=== PATIENT | female | born 1950 | race Caucasian/White ===

== ENCOUNTER → 2016-08-28 | Outpatient (CLI) | payer MEDICARE, OTHER ==
--- NOTE | 2016-08-28 14:35 | BD ---
EXAMINATION TYPE: MG DEXA axial skeleton. DATE OF EXAM: 08/28/2016 1:02 PM COMPARISON: NONE CLINICAL HISTORY: Postmenopausal female Height: 5 FT 4 1/4 IN Weight: 217 FRAX RISK QUESTIONS: Alcohol (3 or more units per day): NO Family History (Parent hip fracture): NO Glucocorticoids (More than 3mos): NO (Ex: prednisone, prednisolone, methylprednisolone, dexamethasone, and hydrocortisone). History of Fracture in Adulthood: NO Secondary Osteoporosis: 1. Type 1 Diabetes: NO 2. Hyperthyroidism: NO 3. Menopause before 45: YES 4. Malnutrition: NO 5. 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 Bone mineral density as measured about the Lumbar spine is: ----- L1-L4(G/cm2): 1.616 T Score Values are as follows: ----- L2: 4.1 ----- L3: 3.0 ----- L4: 4.4 ----- L1-L4: 3.6 BASELINE Bone mineral density about the R hip (g/cm2): 1.116 Bone mineral density about the L hip (g/cm2): 1.293 T Score values are as follows: -----R Neck: 0.6 -----L Neck: 1.8 -----R Total: 0.9 -----L Total: 1.8 BASELINE IMPRESSION: Normal (Values between +1 and -1 indicate normal bone mass). Consider repeating this study in 5 year s or sooner if there is some new clinical indication. NOTE: T-SCORE=SD OF THE YOUNG ADULT MEAN.
== END | disposition home or self-care (01) ==
LOC: RADBDWWP 12:33
PROVIDERS: ATTEND Internal Medicine
DX: Z78.0 Asymptomatic menopausal state (principal)
CPT/HCPCS: 77080

== ENCOUNTER → 2016-10-16 | Outpatient (CLI) | payer MEDICARE, OTHER ==
--- NOTE | 2016-10-16 11:01 | P.HPOB ---
History of Present Illness H&P Date: 10/16/16 Chief Complaint: The patient is here for her routine gynecologic exam and mammogram. This is a 66-year-old within LMP of 1980 who is status post vaginal hysterectomy for uterine fibroids. She's here to establish with this office. She previously saw Dr. Hahn for her gynecologic care. It has been more than one year since her last exam. She is without gynecologic complaints. Review of Systems She is getting about 10 pounds over the last year. She denies respiratory or cardiac problems. G.I. she has occasional gastric reflux. She denies maltreatment. She has fallen off of her horse during the past year without significant injury. she denies any significant problems with urinary leakage. Past Medical History Additional Past Medical History / Comment(s): Hypertension, depression with bipolar disorder, elevated cholesterol, early emphysema, and gastroesophageal reflux disease. Additional Past Surgical History / Comment(s): Vaginal hysterectomy 1980, colonoscopy 2016 and right breast biopsy in the past. 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 She did have a history between 1980 and has no history of STDs. Medications and Allergies Home Medications and Allergies Comment(s): Lisinopril 20 mg daily, bhavani press 0.1 mg b.i.d., Paxil 20 mg b.i.d., pravastatin 40 mg Q day, fish oil supplement, baby aspirin daily, turmeric, vitamin D3 with calcium daily, shah tart pills daily. Exam Blood pressure 150/67, height 5'5", weight 220 pounds, temperature 97.3, pulse 85. This is a well-developed well-nourished white female who is alert and oriented times 3 in no acute distress. HEENT: Within normal limits. NECK: Supple without mass or thyromegaly. CHEST AND LUNGS: Clear to auscultation. HEART: Regular rate and rhythm. BREASTS: Are without mass or discharge. AXILLARY EXAM: Negative for adenopathy. BACK: Negative for CVA tenderness. ABDOMEN: Soft, nontender, without palpable masses. PELVIC EXAM: external genitalia reveals mild atrophy without lesions. Vagina appears normal with mild atrophy. Bimanual examination is negative for master tenderness. RECTAL EXAM: recto vaginal exam is negative for master tenderness and is negative for occult blood. EXTREMITIES: Nontender. Assessment and Plan Plan: IMPRESSION: 66-year-old menopausal female who is status post vaginal hysterectomy for benign reasons with normal gynecologic exam PLAN: 1. Pap smears have been discontinued. 2. Self breast examination was discussed. 3. Mammogram will be done today. 4. Osteoporosis prevention was discussed. She had a normal bone density tests done on 08/28/2016. 5. She did not get a flu shot last fall but plans to get one this coming fall. 6. She will return in one year.
--- NOTE | 2016-10-17 07:09 | MM ---
Reason for exam: screening (asymptomatic). Last mammogram was performed 1 year ago. History: Patient is postmenopausal. Family history of premenopausal breast cancer in 2 paternal aunts. Benign excisional biopsy of the right breast. Took hormonal contraceptives for 10 years beginning at age 19. Took estrogen for 14 years beginning at age 49. Physical Findings: A clinical breast exam by your physician is recommended on an annual basis and results should be correlated with mammographic findings. MG 3D Screening Mammo W/Cad Bilateral CC and MLO view(s) were taken. Prior study comparison: October 12, 2015, bilateral MG 3d screening mammo w/cad. October 10, 2014, bilateral MG screening mammo w CAD. The breast tissue is almost entirely fat. There is chronic nodularity in the left breast. No significant changes when compared with prior studies. ASSESSMENT: Benign, BI-RAD 2 RECOMMENDATION: Routine screening mammogram of both breasts in 1 year.
== END | disposition home or self-care (01) ==
LOC: WWCWWP 09:40
PROVIDERS: ATTEND Obstetrics & Gynecology
DX: Z12.31 Encounter for screening mammogram for malignant neoplasm of breast (principal)
CPT/HCPCS: 77063; G0202

== ENCOUNTER → 2017-08-22 | Outpatient (CLI) | payer MEDICARE, OTHER ==
[2017-08-22 15:12] LABS: Blood Urea Nitrogen 23 mg/dL (7-17)
--- NOTE | 2017-08-22 17:47 | CT ---
EXAMINATION TYPE: CT abdomen pelvis w con DATE OF EXAM: 08/22/2017 COMPARISON: NONE HISTORY: Left sided abdominal pain. CT DLP: 1023.6 mGycm Automated exposure control for dose reduction was used. TECHNIQUE: Helical acquisition of images was performed from the lung bases through the pelvis. CONTRAST: Performed with Oral Contrast and with IV Contrast, patient injected with 100 mL of Isovue M300. FINDINGS: The lung bases are clear. There is no pleural effusion. Heart size is normal. The liver spleen pancreas gallbladder appear normal. Bile ducts are not dilated. There is small hiata l hernia. There is no adrenal mass. Kidneys show satisfactory contrast opacification. There is no hyd ronephrosis. Ureters are not dilated. There is no retroperitoneal adenopathy. Bladder distends smooth ly. There is no sign of a pelvic mass. Hysterectomy is noted. There is no free fluid in the pelvis. I see no intestinal wall thickening. There are no dilated loops. Appendix is not definitely seen. The re is no sign of appendicitis. There is a 1st to 2nd degree L4-5 spondylolisthesis. There is no spond ylolysis. There is 1 cm subluxation. There is moderate narrowing at L4-5 L5-S1 disc spaces. There is no compression fracture. There is L4-5 spinal stenosis. IMPRESSION: MODERATE SPINAL STENOSIS AT L4-5 WITH A 1ST TO 2ND DEGREE SPONDYLOLISTHESIS. NO FRACTURE. NO SIGN OF ACUTE ABDOMEN AND PELVIS. I DO NOT SEE A CAUSE FOR LEFT-SIDED ABDOMINAL PAIN.
== END | disposition home or self-care (01) ==
LOC: RADCTMAIN 14:35
PROVIDERS: ATTEND Internal Medicine
DX: R10.84 Generalized abdominal pain (principal)
CPT/HCPCS: 82565; 84520; 74177; 36415; Q9967

== ENCOUNTER → 2017-11-05 | Outpatient (CLI) | payer MEDICARE, OTHER ==
[2017-11-05 10:07] VITALS: BP 136/69; PULSE 82; TEMP 98.1; BMI 36.4
--- NOTE | 2017-11-05 10:42 | P.HPOB ---
History of Present Illness H&P Date: 11/05/17 Chief Complaint: The patient is here for her routine gynecologic exam and mammogram. This is a 67-year-old with an LMP of 1980 who is status post vaginal hysterectomy for uterine fibroids. The patient is without gynecologic complaints. Review of Systems Weight has been stable. She denies respiratory, cardiac and G.I. problems. She denies maltreatment or problems with falling. : she denies any significant problems with urinary leakage, but can sometimes have a slight leak if she laughs very hard and cannot get to the bathroom right away. 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 History of Any Multi-Drug Resistant Organisms: None Reported Past Surgical History: Breast Surgery (Right biopsy), Hysterectomy (Vaginal in 1980) Additional Past Surgical History / Comment(s): colonoscopy 2016. Past Psychological History: Bipolar, Depression Smoking Status: Former smoker (Quit 1996) Past Alcohol Use History: Occasional (2 per month) Past Drug Use History: None Reported Additional History: She has been since 1966 and is retired. - Past Family History Father Family Medical History: Coronary Artery Disease (CAD), Diabetes Mellitus Mother Family Medical History: Myocardial Infarction ([place]) Additional Family Medical History / Comment(s): 2 aunts had breast cancer. Sister(s) Family Medical History: Coronary Artery Disease (CAD) Brother(s) Family Medical History: Coronary Artery Disease (CAD) Medications and Allergies Home Medications Medication Instructions Recorded Confirmed Type Aloe Vera mg PO DAILY 11/05/17 History Aspirin [Children's Aspirin] mg PO DAILY 11/05/17 History Cholecalciferol [Vitamin D3] tab PO DAILY 11/05/17 History Lisinopril [Zestril] mg PO DAILY 11/05/17 History [place]-3 Fatty Acids/Fish Oil [Fish cap PO DAILY 11/05/17 History Oil 1,000 mg Softgel] PARoxetine [Paxil] mg PO BID 11/05/17 History Pravastatin Sodium [Pravachol] mg PO HS 11/05/17 History cloNIDine HCL [Catapres] mg PO BID 11/05/17 History Allergies Allergy/AdvReac Type Severity Reaction Status Date / Time sulfamethoxazole AdvReac Severe Nausea & Unverified 11/05/17 10:20 [From Bactrim] Vomiting trimethoprim [From Bactrim] AdvReac Severe Nausea & Unverified 11/05/17 10:20 Vomiting Exam Vital Signs Temp Pulse BP 11/05/17 10:01 98.1 F 82 136/69 Intake and Output 11/04/17 11/05/17 11/05/17 22:59 06:59 14:59 Other: Weight 99.337 kg Height 5'5", BMI 36.4. This is a well-developed well-nourished heavyset white female who is alert and oriented times 3 in no acute distress. HEENT: Within normal limits. NECK: Supple without mass or thyromegaly. CHEST AND LUNGS: Clear to auscultation. HEART: Regular rate and rhythm. BREASTS: Are without mass or discharge. AXILLARY EXAM: Negative for adenopathy. BACK: Negative for CVA tenderness. ABDOMEN: Soft, obese, nontender, without palpable masses. PELVIC EXAM: External genitalia appears normal with mild atrophy. Vagina appears normal is mild atrophy. There is no evidence of prolapse. Bimanual examination is negative for mass or tenderness. RECTAL EXAM: Rectovaginal exam is negative for mass or tenderness and is negative for occult blood. EXTREMITIES: Nontender. IMPRESSION: 1. 67-year-old menopausal female who is status post vaginal hysterectomy for benign reasons with normal gynecologic exam. PLAN: 1. Pap smears have been discontinued. 2. Self breast awareness was discussed. 3. Screening mammogram will be done today. 4. She typically gets flu shots in the fall. 5. We will plan a repeating bone density test in 2023 since she had a normal bone density test on 08/28/2016. 6. She will return one year.
--- NOTE | 2017-11-06 11:19 | MM ---
Reason for exam: screening (asymptomatic). Last mammogram was performed 1 year and 1 month ago. History: Patient is postmenopausal. Family history of premenopausal breast cancer in 2 paternal aunts. Benign excisional biopsy of the right breast. Took hormonal contraceptives for 10 years beginning at age 19. Took estrogen for 14 years beginning at age 49. Physical Findings: A clinical breast exam by your physician is recommended on an annual basis and results should be correlated with mammographic findings. MG 3D Screening Mammo W/Cad Bilateral CC and MLO view(s) were taken. Prior study comparison: October 16, 2016, bilateral MG 3d screening mammo w/cad. October 12, 2015, bilateral MG 3d screening mammo w/cad. The breast tissue is heterogeneously dense. This may lower the sensitivity of mammography. Benign appearing bilateral calcifications. No suspicious abnormality. Post operative change in the right breast. ASSESSMENT: Benign, BI-RAD 2 RECOMMENDATION: Routine screening mammogram of both breasts in 1 year.
== END | disposition home or self-care (01) ==
LOC: WWCWWP 09:29
PROVIDERS: ATTEND Obstetrics & Gynecology
DX: Z12.31 Encounter for screening mammogram for malignant neoplasm of breast (principal)
CPT/HCPCS: 77063; 77067

== ENCOUNTER → 2018-09-22 | Outpatient (CLI) | payer MEDICARE, OTHER ==
--- NOTE | 2018-09-22 14:57 | XR ---
EXAMINATION TYPE: XR chest 2V DATE OF EXAM: 09/22/2018 COMPARISON: NONE HISTORY: Shortness of breath and cough. TECHNIQUE: Frontal and lateral views of the chest are obtained. FINDINGS: There is no focal air space opacity, pleural effusion, or pneumothorax seen. The cardiac silhouette size is upper limits of normal. Mild multilevel spurring in the midthoracic spine is prese nt. IMPRESSION: No acute cardiopulmonary process.
== END | disposition home or self-care (01) ==
LOC: RADXRMAIN 14:41
PROVIDERS: ATTEND Internal Medicine
DX: R05 Cough (principal)
CPT/HCPCS: 71046

== ENCOUNTER → 2019-01-26 | Outpatient (CLI) | payer MEDICARE, OTHER ==
[2019-01-26 15:42] VITALS: BP 96/58; PULSE 80; RESP 18; TEMP 98.2; BMI 35.6
--- NOTE | 2019-01-26 16:31 | P.HPOB ---
History of Present Illness H&P Date: 01/26/19 Chief Complaint: The patient is here for her routine gynecologic exam and ma mmogram. This is a 68-year-old with an LMP of 1980. The patient is status post vaginal hysterectomy for uterine fibroids. The patient states she has had some left vulvar irritation for more than one year. It seems to be intermittent and flares up at different times. She had used an [id number] hydrocortisone cream without much improvement. She is otherwise without complaints. Review of Systems The patient has lost 5 pounds over the last year. She denies respiratory, cardiac, or G.I. problems. Past Medical History Past Medical History: COPD, Diabetes Mellitus, GERD/Reflux, Hyperlipidemia, Hypertension Additional Past Medical History / Comment(s): Borderline type 2 diabetes. 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 History of Any Multi-Drug Resistant Organisms: None Reported Past Surgical History: Breast Surgery, Hysterectomy Additional Past Surgical History / Comment(s): Right breast biopsy. Vaginal hysterectomy 1980. colonoscopy 2016. Past Psychological History: Bipolar, Depression Smoking Status: Former smoker Past Alcohol Use History: Occasional (2 per month) Additional Past Alcohol Use History / Comment(s): Quit smoking in 1996. Past Drug Use History: None Reported Additional History: She has been since 1966 and is retired. She has 6 horses. - Past Family History Father Family Medical History: Coronary Artery Disease (CAD), Diabetes Mellitus Mother Family Medical History: Myocardial Infarction ([place]) Additional Family Medical History / Comment(s): 2 aunts had breast cancer. Sister(s) Family Medical History: Coronary Artery Disease (CAD) Brother(s) Family Medical History: Coronary Artery Disease (CAD) Medications and Allergies Home Medications Medication Instructions Recorded Confirmed Type Aloe Vera 1 tab PO DAILY 11/05/17 01/26/19 History Aspirin [Children's Aspirin] 81 mg PO DAILY 11/05/17 01/26/19 History Cholecalciferol [Vitamin D3] 1 tab PO DAILY 11/05/17 01/26/19 History Lisinopril [Zestril] 20 mg PO DAILY 11/05/17 01/26/19 History [place]-3 Fatty Acids/Fish Oil [Fish 1 cap PO DAILY 11/05/17 01/26/19 History Oil 1,000 mg Softgel] Pravastatin Sodium [Pravachol] 40 mg PO HS 11/05/17 01/26/19 History cloNIDine HCL [Catapres] 0.1 mg PO BID 11/05/17 01/26/19 History FLUoxetine HCL [PROzac] 20 mg PO BID 01/26/19 01/26/19 History Turmeric Root Extract [Turmeric] 500 mg PO DAILY 01/26/19 01/26/19 History metFORMIN HCL [Glucophage] 500 mg PO BID 01/26/19 01/26/19 History Allergies Allergy/AdvReac Type Severity Reaction Status Date / Time sulfamethoxazole AdvReac Severe Nausea & Unverified 01/26/19 15:42 [From Bactrim] Vomiting trimethoprim [From Bactrim] AdvReac Severe Nausea & Unverified 01/26/19 15:42 Vomiting Exam Vital Signs Temp Pulse Resp BP Pulse Ox 01/26/19 15:21 98.2 F 80 18 96/58 94 L Intake and Output 01/26/19 01/26/19 01/26/19 06:59 14:59 22:59 Other: Weight 97.069 kg Height 5 feet 5 inches, weight 214 pounds, BMI 35.6. This is a well-developed well-nourished heavyset white female who is alert and oriented times 3 in no acute distress. HEENT: Within normal limits. NECK: Supple without mass or thyromegaly. CHEST AND LUNGS: Clear to auscultation. HEART: Regular rate and rhythm. BREASTS: Are without mass or discharge. AXILLARY EXAM: Negative for adenopathy. BACK: Negative for CVA tenderness. ABDOMEN: Soft, nontender, without palpable masses. PELVIC EXAM: External genitalia reveals mild atrophy. The left labia majora has generalized erythema in a well demarcated area covering approximately three quarters of the labia majora. She states this is the area that has been irritated for more than one year. There is no ulceration or lesions within the erythematous area.the area is non-raised. Vagina appears normal with mild atrophy. There is no unusual discharge. There is no evidence of prolapse. Bimanual examination is negative for mass or tenderness. RECTAL EXAM: Rectovaginal exam is negative for mass or tenderness and is negative for occult blood. EXTREMITIES: Nontender. IMPRESSION: 1. 68-year-old menopausal female who is status post vaginal hysterectomy for benign reasons. 2. Left vulvar inflammation, nonspecific unilateral vulvitis. PLAN: 1. Pap smears have been discontinued. 2. Self breast awareness was discussed with the patient. 3. Screening mammogram will be done today. 4. Osteoporosis prevention was discussed. I have stressed the importance of adequate calcium, vitamin D and regular exercise. Recommended amounts of calcium and vitamin D were also discussed. She had a normal bone density test on 08/28/2016 .We will plan on repeating bone density testing in approximately 4 years. 5. Trial of Kenalog 0.1% cream twice a day to the left labia majora as needed. If she continues to have irritation on that side after 3 weeks, she was instructed to call for an appointment for reevaluation and possible biopsy. The electronic prescription will be sent to [facility] pharmacy. 6. She was advised to return in one year for her annual well woman exam.
--- NOTE | 2019-01-28 08:38 | MM ---
Reason for exam: screening (asymptomatic). Last mammogram was performed 1 year and 3 months ago. History: Patient is postmenopausal. Family history of premenopausal breast cancer in 2 paternal aunts. Benign excisional biopsy of the right breast. Took hormonal contraceptives for 10 years beginning at age 19. Took estrogen for 14 years beginning at age 49. Physical Findings: A clinical breast exam by your physician is recommended on an annual basis and results should be correlated with mammographic findings. MG 3D Screening Mammo W/Cad Bilateral CC, MLO, and XCCL view(s) were taken. Prior study comparison: November 05, 2017, bilateral MG 3d screening mammo w/cad. October 16, 2016, bilateral MG 3d screening mammo w/cad. There are scattered fibroglandular densities. No significant changes when compared with prior studies. ASSESSMENT: Benign, BI-RAD 2 RECOMMENDATION: Routine screening mammogram of both breasts in 1 year.
== END | disposition home or self-care (01) ==
LOC: WWCWWP 15:10
PROVIDERS: ATTEND Obstetrics & Gynecology
DX: Z12.31 Encounter for screening mammogram for malignant neoplasm of breast (principal)
CPT/HCPCS: 77063; 77067

== ENCOUNTER 2020-02-09 15:16 | Inpatient (IN) | payer MEDICARE, OTHER ==
[2020-02-09] MEDS ORDERED: ALBUTEROL HFA INHALER INHALATION STA (16:18)
[2020-02-09] MEDS ORDERED: ACETAMINOPHEN TAB 500 MG TAB PO STA (16:18)
[2020-02-09] MEDS ORDERED: SODIUM CHLORIDE 0.9% 1,000 ML IV ONE ×2 (16:19→18:20)
[2020-02-09 16:54] LABS: Basophils % (A) 0 %; Eosinophils # (A) 0.1 k/uL (0-0.7); Eosinophils % (A) 1 %; HCT 40.9 % (34.0-46.0); HGB 13.5 gm/dL (11.4-16.0); Lymphocytes # (A) 0.6 k/uL (1.0-4.8); Lymphocytes % (A) 6 %; MCH 29.3 pg (25.0-35.0); MCHC 33.1 g/dL (31.0-37.0); MCV 88.5 fL (80.0-100.0); Mean Platelet Volume 7.4; Monocytes # (A) 0.4 k/uL (0-1.0); Monocytes % (A) 4 %; Neutrophils # (A) 8.4 k/uL (1.3-7.7); Neutrophils % (A) 87 %; Platelet Count 259 k/uL (150-450); RBC 4.62 m/uL (3.80-5.40); RDW 13.3 % (11.5-15.5); WBC 9.7 k/uL (3.8-10.6)
[2020-02-09] MEDS: SODIUM CHLORIDE 0.9% 1,000 ML IV SCH ×2 (17:04→21:21)
[2020-02-09 17:05] LABS: ALT 34 U/L (4-34); AST 43 U/L (14-36); African American GFR (CKD) >90 (>60 ml/min/1.73 sqM); Albumin 3.9 g/dL (3.5-5.0); Alkaline Phosphatase 75 U/L (38-126); Anion Gap 6 mmol/L; Blood Urea Nitrogen 26 mg/dL (7-17); C Reactive Protein 81.1 mg/L (<10.0); Calcium 9.6 mg/dL (8.4-10.2); Carbon Dioxide 29 mmol/L (22-30); Chloride 92 mmol/L (98-107); Glucose 104 mg/dL (74-99); LDH 815 U/L (313-618); Magnesium 1.8 mg/dL (1.6-2.3); Non-African American GFR(CKD) 81 (>60 ml/min/1.73 sqM); Potassium 5.3 mmol/L (3.5-5.1); Sodium 127 mmol/L (137-145); Total Bilirubin 0.7 mg/dL (0.2-1.3); Total Protein 7.1 g/dL (6.3-8.2)
[2020-02-09 17:07] LABS: INR 0.9 (<1.2); Partial Thromboplastin Time 23.5 sec (22.0-30.0); Prothrombin Time 9.6 sec (9.0-12.0)
[2020-02-09 17:08] LABS: D-Dimer 0.72 mg/L FEU (<0.60)
--- NOTE | 2020-02-09 17:23 | XR ---
EXAMINATION TYPE: XR chest 1V portable DATE OF EXAM: 02/09/2020 COMPARISON: 09/22/2018 HISTORY: Short of breath TECHNIQUE: Single view FINDINGS: There is some patchy airspace infiltrate at the lung bases. There is no heart failure. Hear t size is normal. There is no definite pleural effusion. IMPRESSION: There is some bilateral lower lobe pneumonia that appears new compared to old exam.
--- NOTE | 2020-02-09 17:56 | ED ---
General Adult HPI - General Source: patient, RN notes reviewed, old records reviewed Mode of arrival: wheelchair Limitations: no limitations <Nadine Aranda - Last Filed: 02/09/20 18:20> <Mile Duran - Last Filed: 02/10/20 10:52> - General Chief complaint: Recheck/Abnormal Lab/Rx Stated complaint: COVID + symptoms getting worse Time Seen by Provider: 02/09/20 16:03 - History of Present Illness Initial comments: Patient is a 69-year-old female who was diagnosed with COVID 19 infection on Friday. She is having symptoms of sinus congestion and cough shortness of breath and fatigue. She went to her primary care doctor on Friday had the testing completed. She was informed of the positive result on Friday. She presents today complaining of worsening symptoms going, including worsening shortness of breath. She reports she is nighttime she has episodes of hallucinations in worsening coughing. Patient reportedly had a small amount of diarrhea. She also complains of dysuria. Patient arrived to the emergency department reporting difficulty with breathing and taking shallow breaths. (Nadine Barger) - Related Data Home Medications Medication Instructions Recorded Confirmed Aloe Vera 1 tab PO DAILY 11/05/17 02/09/20 Aspirin [Children's Aspirin] 81 mg PO DAILY 11/05/17 02/09/20 Cholecalciferol [Vitamin D3] 1,000 unit PO DAILY 11/05/17 02/09/20 [place]-3 Fatty Acids/Fish Oil [Fish 1 cap PO DAILY 11/05/17 02/09/20 Oil 1,000 mg Softgel] Pravastatin Sodium [Pravachol] 40 mg PO HS 11/05/17 02/09/20 cloNIDine HCL [Catapres] 0.1 mg PO BID 11/05/17 02/09/20 lisinopriL [Zestril] 20 mg PO DAILY 11/05/17 02/09/20 FLUoxetine HCL [PROzac] 20 mg PO DAILY 01/26/19 02/09/20 Turmeric Root Extract [Turmeric] 500 mg PO DAILY 01/26/19 02/09/20 metFORMIN HCL [Glucophage] 500 mg PO BID 01/26/19 02/09/20 Azithromycin [Zithromax] 500 mg PO DAILY 02/09/20 02/09/20 Latanoprost/Pf [Latanoprost 0.005% 1 drop RIGHT EYE HS 02/09/20 02/09/20 Eye Drop] [place] 1 tab PO DAILY 02/09/20 02/09/20 Vitamin D3/Calcium 1 tab PO DAILY 02/09/20 02/09/20 Allergies Allergy/AdvReac Type Severity Reaction Status Date / Time sulfamethoxazole AdvReac Severe Nausea & Verified 02/09/20 18:26 [From Bactrim] Vomiting trimethoprim [From Bactrim] AdvReac Severe Nausea & Verified 02/09/20 18:26 Vomiting Review of Systems ROS Other: All systems not noted in ROS Statement are negative. <Nadine Aranda - Last Filed: 02/09/20 18:20> ROS Other: All systems not noted in ROS Statement are negative. <Mile Duran - Last Filed: 02/10/20 10:52> ROS Statement: Those systems with pertinent positive or pertinent negative responses have been documented in the HPI. Past Medical History Past Medical History: COPD, Diabetes Mellitus, GERD/Reflux, Hyperlipidemia, Hypertension Additional Past Medical History / Comment(s): Borderline type 2 diabetes. 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 History of Any Multi-Drug Resistant Organisms: None Reported Past Surgical History: Breast Surgery, Hysterectomy Additional Past Surgical History / Comment(s): Right breast biopsy. Vaginal hysterectomy 1980. colonoscopy 2017. Past Psychological History: Bipolar, Depression Smoking Status: Former smoker Past Alcohol Use History: Occasional Past Drug Use History: None Reported - Past Family History Father Family Medical History: Coronary Artery Disease (CAD), Diabetes Mellitus Mother Family Medical History: Myocardial Infarction ([place]) Additional Family Medical History / Comment(s): 2 aunts had breast cancer. Sister(s) Family Medical History: Coronary Artery Disease (CAD) Brother(s) Family Medical History: Coronary Artery Disease (CAD) <Nadine Aranda - Last Filed: 02/09/20 18:20> General Exam Limitations: no limitations General appearance: alert, in no apparent distress Head exam: Present: atraumatic, normocephalic, normal inspection Eye exam: Present: normal appearance, PERRL, EOMI. Absent: scleral icterus, c onjunctival injection, periorbital swelling ENT exam: Present: normal exam, mucous membranes moist Neck exam: Present: normal inspection. Absent: tenderness, meningismus, lymphadenopathy Respiratory exam: Present: normal lung sounds bilaterally. Absent: respiratory distress, wheezes, rales, rhonchi, stridor Cardiovascular Exam: Present: regular rate, normal rhythm, normal heart sounds. Absent: systolic murmur, diastolic murmur, rubs, gallop, clicks GI/Abdominal exam: Present: soft, normal bowel sounds. Absent: distended, tenderness, guarding, rebound, rigid Extremities exam: Present: normal inspection Back exam: Present: normal inspection Neurological exam: Present: alert, oriented X3, CN II-XII intact <Nadine Aranda - Last Filed: 02/09/20 18:20> - General Exam Comments Initial Comments: 69-year-old female. Alert and oriented 3. Oxygen saturation of 87% on room air. (Nadine Aranda) Course Vital Signs 02/09/20 02/09/20 02/09/20 15:23 16:54 18:43 Temperature 99.5 F 99.4 F 98.5 F Pulse Rate 65 99 76 Respiratory 18 16 16 Rate Blood Pressure 131/50 103/77 112/61 O2 Sat by Pulse 91 L 95 95 Oximetry Procedures - [facility] Protocol (Time Out) Nurse: Keisha Kolb <Nadine Aranda - Last Filed: 02/09/20 18:20> Medical Decision Making - Lab Data Result diagrams: 02/09/20 16:24 02/09/20 16:24 - Radiology Data Radiology results: report reviewed <Nadine Aranda - Last Filed: 02/09/20 18:20> - Lab Data Result diagrams: 02/10/20 06:20 02/10/20 06:20 <Mile Duran - Last Filed: 02/10/20 10:52> - Medical Decision Making This patient's a 69-year-old female with comorbidities including diabetes hypertension and hyperlipidemia. She presents with positive cone. 19 diagnosis on Friday. She reports worsening symptoms including worsening shortness of breath. She was found to be hypoxic upon arrival 87% on room air. Patient is placed on 2 L of oxygen. Patient's chest x-ray shows evidence of bilateral patchy pneumonia. Labs are reviewed and consistent with Covid 19 infection with elevated CRP and LDH as well as mildly elevated d-dimer. The Patient requiring oxygen discussed with case with primary care doctor and home agrees to admission. She was seen in emergency department with her who has more mild case of Covid 19 infection and he is discharged home. (Nadine Aranda) I was available for consultation in the emergency department. The history and physical exam were done by the midlevel provider. I was consulted for this patients care. I reviewed the case with the midlevel provider and based on their presentation of the patient, I agree with the assessment, medical decision making and plan of care as documented. Chart was dictated using BluPanda dictation software. Attempts were made to correct any dictation errors however some typographical errors may persist. Patient was seen during a national state of emergency due to the Covid-19 pandemic. (Mile Duran) - Lab Data Lab Results 02/09/20 02/09/20 02/09/20 Range/Units 16:24 16:24 16:24 WBC 9.7 (3.8-10.6) k/uL RBC 4.62 (3.80-5.40) m/uL Hgb 13.5 (11.4-16.0) gm/dL Hct 40.9 (34.0-46.0) % MCV 88.5 (80.0-100.0) fL MCH 29.3 (25.0-35.0) pg MCHC 33.1 (31.0-37.0) g/dL RDW 13.3 (11.5-15.5) % Plt Count 259 (150-450) k/uL Neutrophils % 87 % Lymphocytes % 6 % Monocytes % 4 % Eosinophils % 1 % Basophils % 0 % Neutrophils # 8.4 H (1.3-7.7) k/uL Lymphocytes # 0.6 L (1.0-4.8) k/uL Monocytes # 0.4 (0-1.0) k/uL Eosinophils # 0.1 (0-0.7) k/uL Basophils # 0.0 (0-0.2) k/uL PT 9.6 (9.0-12.0) sec INR 0.9 (<1.2) APTT 23.5 (22.0-30.0) sec D-Dimer 0.72 H (<0.60) mg/L FEU Sodium 127 L (137-145) mmol/L Potassium 5.3 H (3.5-5.1) mmol/L Chloride 92 L (98-107) mmol/L Carbon Dioxide 29 (22-30) mmol/L Anion Gap 6 mmol/L BUN 26 H (7-17) mg/dL Creatinine 0.75 (0.52-1.04) mg/dL Est GFR (CKD-EPI)AfAm >90 (>60 ml/min/1.73 sqM) Est GFR (CKD-EPI)NonAf 81 (>60 ml/min/1.73 sqM) Glucose 104 H (74-99) mg/dL Plasma Lactic Acid Ty (0.7-2.0) mmol/L Calcium 9.6 (8.4-10.2) mg/dL Magnesium 1.8 (1.6-2.3) mg/dL Ferritin 535.8 H (10.0-291.0) ng/mL Total Bilirubin 0.7 (0.2-1.3) mg/dL AST 43 H (14-36) U/L ALT 34 (4-34) U/L Alkaline Phosphatase 75 (38-126) U/L Lactate Dehydrogenase 815 H (313-618) U/L C-Reactive Protein 81.1 H (<10.0) mg/L Total Protein 7.1 (6.3-8.2) g/dL Albumin 3.9 (3.5-5.0) g/dL Procalcitonin (0.02-0.09) ng/mL Urine Color Urine Appearance (Clear) Urine pH (5.0-8.0) Ur Specific [place] (1.001-1.035) Urine Protein (Negative) Urine Glucose (UA) (Negative) Urine Ketones (Negative) Urine Blood (Negative) Urine Nitrite (Negative) Urine Bilirubin (Negative) Urine Urobilinogen (<2.0) mg/dL Ur Leukocyte Esterase (Negative) Urine RBC (0-5) /hpf Urine WBC (0-5) /hpf Ur Squamous Epith Cells (0-4) /hpf Urine Bacteria (None) /hpf Urine Mucus (None) /hpf 02/09/20 02/09/20 02/09/20 Range/Units 16:24 16:24 16:58 WBC (3.8-10.6) k/uL RBC (3.80-5.40) m/uL Hgb (11.4-16.0) gm/dL Hct (34.0-46.0) % MCV (80.0-100.0) fL MCH (25.0-35.0) pg MCHC (31.0-37.0) g/dL RDW (11.5-15.5) % Plt Count (150-450) k/uL Neutrophils % % Lymphocytes % % Monocytes % % Eosinophils % % Basophils % % Neutrophils # (1.3-7.7) k/uL Lymphocytes # (1.0-4.8) k/uL Monocytes # (0-1.0) k/uL Eosinophils # (0-0.7) k/uL Basophils # (0-0.2) k/uL PT (9.0-12.0) sec INR (<1.2) APTT (22.0-30.0) sec D-Dimer (<0.60) mg/L FEU Sodium (137-145) mmol/L Potassium (3.5-5.1) mmol/L Chloride (98-107) mmol/L Carbon Dioxide (22-30) mmol/L Anion Gap mmol/L BUN (7-17) mg/dL Creatinine (0.52-1.04) mg/dL Est GFR (CKD-EPI)AfAm (>60 ml/min/1.73 sqM) Est GFR (CKD-EPI)NonAf (>60 ml/min/1.73 sqM) Glucose (74-99) mg/dL Plasma Lactic Acid Ty 1.6 (0.7-2.0) mmol/L Calcium (8.4-10.2) mg/dL Magnesium (1.6-2.3) mg/dL Ferritin (10.0-291.0) ng/mL Total Bilirubin (0.2-1.3) mg/dL AST (14-36) U/L ALT (4-34) U/L Alkaline Phosphatase (38-126) U/L Lactate Dehydrogenase (313-618) U/L C-Reactive Protein (<10.0) mg/L Total Protein (6.3-8.2) g/dL Albumin (3.5-5.0) g/dL Procalcitonin 0.07 (0.02-0.09) ng/mL Urine Color Yellow Urine Appearance Clear (Clear) Urine pH 6.0 (5.0-8.0) Ur Specific [place] 1.029 (1.001-1.035) Urine Protein 1+ H (Negative) Urine Glucose (UA) Negative (Negative) Urine Ketones Negative (Negative) Urine Blood Negative (Negative) Urine Nitrite Negative (Negative) Urine Bilirubin Negative (Negative) Urine Urobilinogen <2.0 (<2.0) mg/dL Ur Leukocyte Esterase Negative (Negative) Urine RBC 1 (0-5) /hpf Urine WBC 1 (0-5) /hpf Ur Squamous Epith Cells 2 (0-4) /hpf Urine Bacteria Rare H (None) /hpf Urine Mucus Moderate H (None) /hpf 02/09/20 17:56 EKG performed at 1649 shows normal sinus rhythm normal EKG. Ventricular rate of 100 bpm. Intervals 150 ms. QS presybeterian is 90 ms. QT QTc is 324/417 ms. (Ariadne Aranda) - Radiology Data Some bilateral lower lobe pneumonia that is new compared old exam. (Nadine Aranda) Disposition Is patient prescribed a controlled substance at d/c from ED?: No Time of Disposition: 18:22 <Nadine Aranda - Last Filed: 02/09/20 18:20> <Mile Duran - Last Filed: 02/10/20 10:52> Clinical Impression: COVID-19, Bilateral pneumonia, Hypoxemia Disposition: ADMITTED IP TO THIS HOSP Condition: Stable
[2020-02-09] MEDS ORDERED: NALOXONE 0.4 MG/ML 1 ML VIAL IV PRN (18:25)
[2020-02-09] MEDS ORDERED: ONDANSETRON 4 MG/2 ML VIAL IVP PRN (18:25)
[2020-02-09] MEDS ORDERED: ENOXAPARIN 40 MG/0.4 ML SYRINGE SQ STA (18:28)
[2020-02-09 19:08] LABS: Appearance,Urine Clear (Clear); Bacteria,Urine Rare /hpf; Bilirubin,Urine Negative (Negative); Blood,Urine Negative (Negative); Color,Urine Yellow; Glucose,Urine (UA) Negative (Negative); Ketones,Urine Negative (Negative); Leukocyte Esterase,Urine Negative (Negative); Mucus,Urine Moderate /hpf; Nitrite,Urine Negative (Negative); Protein,Urine 1+ (Negative); RBC,Urine 1 /hpf (0-5); Specific Gravity,Urine 1.029 (1.001-1.035); Squamous Epithelial Cell,Urine 2 /hpf (0-4); Urobilinogen,Urine <2.0 mg/dL (<2.0); WBC,Urine 1 /hpf (0-5)
[2020-02-09] MEDS: cloNIDine HCL 0.1 MG TAB PO SCH (21:20)
[2020-02-09] MEDS: PRAVASTATIN SODIUM 40 MG TAB PO SCH (21:20)
[2020-02-09] MEDS: LATANOPROST 0.005% OPHTH DROPS 2.5 ML BTL RIGHT EYE SCH (22:55)
[2020-02-10 03:31] LABS: Ferritin 535.8 ng/mL (10.0-291.0)
[2020-02-10] MEDS: ACETAMINOPHEN TAB 500 MG TAB PO PRN ×3 (05:18→21:14)
[2020-02-10 06:57] LABS: Glucose,Whole Blood 98 mg/dL (75-99)
[2020-02-10 07:01] LABS: Basophils % (A) 0 %; Eosinophils % (A) 0 %; HCT 37.9 % (34.0-46.0); HGB 12.1 gm/dL (11.4-16.0); Lymphocytes # (A) 0.4 k/uL (1.0-4.8); Lymphocytes % (A) 5 %; MCHC 32.1 g/dL (31.0-37.0); MCV 90.6 fL (80.0-100.0); Mean Platelet Volume 7.7; Monocytes # (A) 0.3 k/uL (0-1.0); Monocytes % (A) 3 %; Neutrophils % (A) 90 %; Platelet Count 230 k/uL (150-450); RBC 4.18 m/uL (3.80-5.40); RDW 12.9 % (11.5-15.5); WBC 8.9 k/uL (3.8-10.6)
[2020-02-10] MEDS: CALCIUM CARB-VIT D 500MG-200UN 1 EACH TAB PO SCH (08:15)
[2020-02-10] MEDS: ASPIRIN 81 MG PO SCH (08:15)
[2020-02-10] MEDS: CHOLECALCIFEROL 1,000 UNIT TAB PO SCH (08:15)
[2020-02-10] MEDS: lisinopriL 20 MG TAB PO SCH (08:15)
[2020-02-10] MEDS: cloNIDine HCL 0.1 MG TAB PO SCH ×2 (08:15→21:06)
[2020-02-10] MEDS: AZITHROMYCIN 500 MG TAB PO SCH (08:15)
[2020-02-10] MEDS: metFORMIN 500 MG TAB PO SCH ×2 (08:15→16:50)
[2020-02-10] MEDS: FLUoxetine HCL 20 MG CAP PO SCH (08:15)
[2020-02-10] MEDS ORDERED: NON FORMULARY DRUG (Omega-3 Fatty Acids/Fish Oil [Fish Oil 1,000 Mg Softgel] 1 EACH Capsul PO SCH (09:00)
[2020-02-10] MEDS ORDERED: PANTOPRAZOLE 40 MG/10 ML VIAL IV SCH (09:00)
[2020-02-10] MEDS ORDERED: TART CHERRY PO SCH (09:00)
[2020-02-10] MEDS ORDERED: ALOE VERA PO SCH (09:00)
[2020-02-10 09:42] LABS: African American GFR (CKD) 101.7 (60.0-200.0); Albumin 4.1 g/dL (3.80-4.90); Albumin/Globulin Ratio 1.95 (1.60-3.17); Calcium 9.1 mg/dL (8.7-10.3); Globulin 2.1 g/dL (1.6-3.3); Non-African American GFR(CKD) 87.8 (60.0-200.0); Potassium 4.5 mmol/L (3.5-5.5); Total Bilirubin 0.5 mg/dL (0.3-1.2); Total Protein 6.2 g/dL (6.2-8.2)
[2020-02-10 11:24] LABS: Glucose,Whole Blood 130 mg/dL (75-99)
--- NOTE | 2020-02-10 11:31 | P.HPIM ---
History of Present Illness H&P Date: 02/10/20 Tereza Greene, he is a 69-year-old female well known to my practice who presented to his office with her on , 02/03/2020 complaining of cough and stating that they were exposed to a relative who was positive for Covid 19, Covid 19 testing was done in the office at that time and they were given a course of Zithromax and a course of prednisone, testing came back positive for Covid 19 for both patient and her patient was initially stable however she developed worsening cough and worsening shortness of breath, she was told to go to emergency room. Patient was evaluated in the emergency room, vital examination on presentation revealed a temperature of 99.5 pulse 65 respiration 18 blood pressure 131/50 pulse ox 91% on room air white blood count was 9.7 sodium 127 BUN 26 creatinine 0.75 chest x-ray revealed evidence of by basilar infiltrates patient was admitted to medical floor she was started on IV dexamethasone and IV Rocephin and Zithromax pulmonary consultation was requested. Patient has a known history of hypertension, hyperlipidemia, and [id number] diabetes mellitus On review of systems patient is complaining of fatigue and generalized weakness she is complaining of fever and cough and shortness of breath with any activity otherwise she denies any complaints, there is no headache or dizziness no chest pain no palpitation no nausea or vomiting no abdominal pain no diarrhea no blood in the stools no burning with urination no frequency or urgency no hematuria Past Medical History Past Medical History: COPD, Diabetes Mellitus, GERD/Reflux, Hyperlipidemia, Hypertension Additional Past Medical History / Comment(s): Borderline type 2 diabetes. 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 History of Any Multi-Drug Resistant Organisms: None Reported Past Surgical History: Breast Surgery, Hysterectomy Additional Past Surgical History / Comment(s): Right breast biopsy. Vaginal hysterectomy 1980. colonoscopy 2016. Past Anesthesia/Blood Transfusion Reactions: No Reported Reaction Past Psychological History: Bipolar, Depression Smoking Status: Former smoker Past Alcohol Use History: Occasional Additional Past Alcohol Use History / Comment(s): Quit smoking in 1996. Past Drug Use History: None Reported - Past Family History Father Family Medical History: Coronary Artery Disease (CAD), Diabetes Mellitus Mother Family Medical History: Myocardial Infarction ([place]) Additional Family Medical History / Comment(s): 2 aunts had breast cancer. Sister(s) Family Medical History: Coronary Artery Disease (CAD) Brother(s) Family Medical History: Coronary Artery Disease (CAD) Medications and Allergies Home Medications Medication Instructions Recorded Confirmed Type Aloe Vera 1 tab PO DAILY 11/05/17 02/09/20 History Aspirin [Children's Aspirin] 81 mg PO DAILY 11/05/17 02/09/20 History Cholecalciferol [Vitamin D3] 1,000 unit PO DAILY 11/05/17 02/09/20 History [place]-3 Fatty Acids/Fish Oil [Fish 1 cap PO DAILY 11/05/17 02/09/20 History Oil 1,000 mg Softgel] Pravastatin Sodium [Pravachol] 40 mg PO HS 11/05/17 02/09/20 History cloNIDine HCL [Catapres] 0.1 mg PO BID 11/05/17 02/09/20 History lisinopriL [Zestril] 20 mg PO DAILY 11/05/17 02/09/20 History FLUoxetine HCL [PROzac] 20 mg PO DAILY 01/26/19 02/09/20 History Turmeric Root Extract [Turmeric] 500 mg PO DAILY 01/26/19 02/09/20 History metFORMIN HCL [Glucophage] 500 mg PO BID 01/26/19 02/09/20 History Azithromycin [Zithromax] 500 mg PO DAILY 02/09/20 02/09/20 History Latanoprost/Pf [Latanoprost 0.005% 1 drop RIGHT EYE HS 02/09/20 02/09/20 History Eye Drop] [place] 1 tab PO DAILY 02/09/20 02/09/20 History Vitamin D3/Calcium 1 tab PO DAILY 02/09/20 02/09/20 History Allergies Allergy/AdvReac Type Severity Reaction Status Date / Time sulfamethoxazole AdvReac Severe Nausea & Verified 02/09/20 18:26 [From Bactrim] Vomiting trimethoprim [From Bactrim] AdvReac Severe Nausea & Verified 02/09/20 18:26 Vomiting Physical Exam Vitals: Vital Signs Temp Pulse Pulse Resp BP BP Pulse Ox 02/10/20 07:00 98.1 F 86 19 121/63 93 L 02/10/20 01:54 101.7 F H 105 H 18 140/61 95 02/09/20 20:02 81 17 02/09/20 19:43 98.9 F 81 17 120/64 89 L 02/09/20 18:43 98.5 F 76 16 112/61 95 02/09/20 16:54 99.4 F 99 16 103/77 95 02/09/20 15:23 99.5 F 65 18 131/50 91 L Intake and Output 02/09/20 02/10/20 02/10/20 22:59 06:59 14:59 Intake Total 200 1500 Balance 200 1500 Intake: Intake, IV Titration 100 1200 Amount Sodium Chloride 0.9% 1, 100 1200 000 ml @ 100 mls/hr IV . Q10H [facility] Rx#:[id number] Oral 100 300 Other: Voiding Method Toilet Toilet Weight 95.254 kg In general patient is alert and oriented 3 in no distress HEENT head normocephalic and atraumatic Neck is supple no JVD no goiter no lymphadenopathy Chest exam reveals a scattered crackles bilaterally no wheezing Cardiac exam reveals regular heart sounds no murmurs Abdomen is soft nontender no organomegaly was normal bowel sounds Extremity exam reveals no edema no cyanosis or clubbing Neurological examination reveals no gross focal deficit Results CBC & Chem 7: 02/10/20 06:20 02/10/20 06:20 Labs: Abnormal Lab Results - Last 24 Hours (Table) 02/09/20 02/09/20 02/09/20 Range/Units 16:24 16:24 16:24 Neutrophils # 8.4 H (1.3-7.7) k/uL Lymphocytes # 0.6 L (1.0-4.8) k/uL D-Dimer 0.72 H (<0.60) mg/L FEU Sodium 127 L (137-145) mmol/L Potassium 5.3 H (3.5-5.1) mmol/L Chloride 92 L (98-107) mmol/L BUN 26 H (7-17) mg/dL Glucose 104 H (74-99) mg/dL Ferritin 535.8 H (10.0-291.0) ng/mL AST 43 H (14-36) U/L Lactate Dehydrogenase 815 H (313-618) U/L C-Reactive Protein 81.1 H (<10.0) mg/L Urine Protein (Negative) Urine Bacteria (None) /hpf Urine Mucus (None) /hpf 02/09/20 02/10/20 Range/Units 16:58 06:20 Neutrophils # 8.0 H (1.3-7.7) k/uL Lymphocytes # 0.4 L (1.0-4.8) k/uL D-Dimer (<0.60) mg/L FEU Sodium (137-145) mmol/L Potassium (3.5-5.1) mmol/L Chloride (98-107) mmol/L BUN (7-17) mg/dL Glucose (74-99) mg/dL Ferritin (10.0-291.0) ng/mL AST (14-36) U/L Lactate Dehydrogenase (313-618) U/L C-Reactive Protein (<10.0) mg/L Urine Protein 1+ H (Negative) Urine Bacteria Rare H (None) /hpf Urine Mucus Moderate H (None) /hpf Thrombosis Risk Factor Assmnt - Choose All That Apply Each Risk Factor Represents 2 Points: Age 61-74 years Thrombosis Risk Factor Assessment Total Risk Factor Score: 2 Thrombosis Risk Factor Assessment Level: Low Risk Assessment and Plan Plan: 1. Bibasilar infiltrate compatible was pneumonia 2. Positive Covid 19 testing on 02/03/2020 3. Underlying history of [id number] diabetes mellitus 4. Underlying history of hypertension 5. Underlying history of hyperlipidemia At this time patient is admitted to medical floor she was started on oxygen supplements IV dexamethasone IV antibiotics Pulmonary consultation is requested Will follow closely
[2020-02-10] MEDS ORDERED: DEXAMETHASONE SOD PHOSPHATE 4 MG/ML 1 ML VIAL IV SCH (12:00)
[2020-02-10] MEDS: SODIUM CHLORIDE 0.9% 1,000 ML IV SCH (12:32)
[2020-02-10] MEDS: ENOXAPARIN 40 MG/0.4 ML SYRINGE SQ SCH (12:36)
[2020-02-10] MEDS: ZINC SULFATE 220 MG CAP PO SCH (12:36)
[2020-02-10] MEDS: ASCORBIC ACID 500 MG TAB PO SCH (12:36)
--- NOTE | 2020-02-10 13:55 | P.CNPUL ---
History of Present Illness Consult date: 02/10/20 Requesting physician: Katharine Bocsh Reason for consult: dyspnea, abnormal CXR/CT (Bilateral lower lobe opacities) Chief complaint: Shortness of breath, fatigue, weakness History of present illness: This is a very pleasant 69-year-old female patient who follows with Dr. Bosch as her primary care provider. She has a history of diabetes mellitus, gastroesophageal reflux disease, hyperlipidemia, hypertension, chronic obstructive pulmonary disease, depression. Approximately 1 week ago she devel oped symptoms of increased shortness of breath, cough, fatigue and weakness. She was tested for COVID 19 at her primary care provider's office on 02/04/2020 and was found to be positive. Her was positive as well. Yesterday she presented to the emergency room with worsening symptoms. Mainly that of shortness of breath, sinus congestion, fatigue and weakness. We'll had some altered mental status with hallucinations the night prior. She was hypoxemic with the lowest O2 saturation recorded at 89%. T-max of 101.7. Chest x-ray did reveal bilateral lower lobe pneumonia. She is seen today in consultation on the regular medical floor. She is currently resting in bed. She has a congested and still feeling weak. Still some shortness of breath. She is maintaining O2 saturation low 90s on 3 L/m per nasal cannula. Currently afebrile. Hemodynamically stable. White count 8.9. Hemoglobin 12.1. Lymphocytes 0.4. D-dimer 0.72. Sodium 131. Potassium 4.5. Creatinine 0.7. Ferritin 535. LDH 815. C-reactive protein 81.1. Pro-calcitonin 0.07. She will be initiated on Remdesivir, Lovenox, zinc, vitamin C, vitamin D, Pepcid melatonin. Review of Systems REVIEW OF SYSTEMS: CONSTITUTIONAL: Fatigue, weakness. Denies any recent significant weight loss or weight gain. EYES: Denies change in vision. EARS, NOSE, MOUTH, THROAT: Denies headaches, denies sore throat. Sinus congestion. CARDIOVASCULAR: Denies chest pain, palpitations or syncopal episodes. RESPIRATORY: Positive for shortness of breath, cough, congestion no hemoptysis. GASTROINTESTINAL: Denies change in appetite, denies abdominal pain GENITOURINARY: Denies hematuria, denies infections. MUSKULOSKELETAL: Denies pain, denies swelling. INTEGUMENTARY: Denies rash, denies eczema. NEUROLOGICAL: Denies recent memory loss, no recent seizure activity. PSYCHIATRIC: Denies anxiety, denies depression. HEMATOLOGIC/LYMPHATIC: Denies anemia, denies enlarged lymph nodes. Past Medical History Past Medical History: COPD, Diabetes Mellitus, GERD/Reflux, Hyperlipidemia, Hypertension Additional Past Medical History / Comment(s): Borderline type 2 diabetes. 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 History of Any Multi-Drug Resistant Organisms: None Reported Past Surgical History: Breast Surgery, Hysterectomy Additional Past Surgical History / Comment(s): Right breast biopsy. Vaginal hysterectomy 1980. colonoscopy 2016. Past Anesthesia/Blood Transfusion Reactions: No Reported Reaction Past Psychological History: Bipolar, Depression Smoking Status: Former smoker Past Alcohol Use History: Occasional Additional Past Alcohol Use History / Comment(s): Quit smoking in 1996. Past Drug Use History: None Reported - Past Family History Father Family Medical History: Coronary Artery Disease (CAD), Diabetes Mellitus Mother Family Medical History: Myocardial Infarction (PA) Additional Family Medical History / Comment(s): 2 aunts had breast cancer. Sister(s) Family Medical History: Coronary Artery Disease (CAD) Brother(s) Family Medical History: Coronary Artery Disease (CAD) Medications and Allergies Home Medications Medication Instructions Recorded Confirmed Type Aloe Vera 1 tab PO DAILY 11/05/17 02/09/20 History Aspirin [Children's Aspirin] 81 mg PO DAILY 11/05/17 02/09/20 History Cholecalciferol [Vitamin D3] 1,000 unit PO DAILY 11/05/17 02/09/20 History [place]-3 Fatty Acids/Fish Oil [Fish 1 cap PO DAILY 11/05/17 02/09/20 History Oil 1,000 mg Softgel] Pravastatin Sodium [Pravachol] 40 mg PO HS 11/05/17 02/09/20 History cloNIDine HCL [Catapres] 0.1 mg PO BID 11/05/17 02/09/20 History lisinopriL [Zestril] 20 mg PO DAILY 11/05/17 02/09/20 History FLUoxetine HCL [PROzac] 20 mg PO DAILY 01/26/19 02/09/20 History Turmeric Root Extract [Turmeric] 500 mg PO DAILY 01/26/19 02/09/20 History metFORMIN HCL [Glucophage] 500 mg PO BID 01/26/19 02/09/20 History Azithromycin [Zithromax] 500 mg PO DAILY 02/09/20 02/09/20 History Latanoprost/Pf [Latanoprost 0.005% 1 drop RIGHT EYE HS 02/09/20 02/09/20 History Eye Drop] [place] 1 tab PO DAILY 02/09/20 02/09/20 History Vitamin D3/Calcium 1 tab PO DAILY 02/09/20 02/09/20 History Allergies Allergy/AdvReac Type Severity Reaction Status Date / Time sulfamethoxazole AdvReac Severe Nausea & Verified 02/09/20 18:26 [From Bactrim] Vomiting trimethoprim [From Bactrim] AdvReac Severe Nausea & Verified 02/09/20 18:26 Vomiting Physical Exam Vitals: Vital Signs Temp Pulse Pulse Resp BP BP Pulse Ox 02/10/20 07:00 98.1 F 86 19 121/63 93 L 02/10/20 01:54 101.7 F H 105 H 18 140/61 95 02/09/20 20:02 81 17 02/09/20 19:43 98.9 F 81 17 120/64 89 L 02/09/20 18:43 98.5 F 76 16 112/61 95 02/09/20 16:54 99.4 F 99 16 103/77 95 02/09/20 15:23 99.5 F 65 18 131/50 91 L Intake and Output 02/09/20 02/10/20 02/10/20 22:59 06:59 14:59 Intake Total 200 1500 Balance 200 1500 Intake: Intake, IV Titration 100 1200 Amount Sodium Chloride 0.9% 1, 100 1200 000 ml @ 100 mls/hr IV . Q10H [facility] Rx#:[id number] Oral 100 300 Other: Voiding Method Toilet Toilet Weight 95.254 kg GENERAL EXAM: Alert, pleasant 69-year-old female patient, on 3 L nasal cannula, comfortable in no apparent distress. HEAD: Normocephalic. EYES: Normal reaction of pupils, equal size. NOSE: Clear with pink turbinates. THROAT: No erythema or exudates. NECK: No masses, no JVD. CHEST: No chest wall deformity. LUNGS: Equal air entry with few scattered rhonchi bilaterally. CVS: S1 and S2 normal with no audible murmur, regular rhythm. ABDOMEN: No hepatosplenomegaly, normal bowel sounds, no guarding or rigidity. SPINE: No scoliosis or deformity SKIN: No rashes CENTRAL NERVOUS SYSTEM: No focal deficits, tone is normal in all 4 extremities. EXTREMITIES: There is no peripheral edema. No clubbing, no cyanosis. Peripheral pulses are intact. Results - Laboratory Findings CBC and BMP: 02/10/20 06:20 02/10/20 06:20 PT/INR, D-dimer PT 9.6 sec (9.0-12.0) 02/09/20 16:24 INR 0.9 (<1.2) 02/09/20 16:24 D-Dimer 0.72 mg/L FEU (<0.60) H 02/09/20 16:24 Abnormal lab findings: Abnormal Labs 02/09/20 02/09/20 02/09/20 16:24 16:24 16:24 Neutrophils # 8.4 H Lymphocytes # 0.6 L D-Dimer 0.72 H Sodium 127 L Potassium 5.3 H Chloride 92 L BUN 26 H BUN/Creatinine Ratio Glucose 104 H POC Glucose (mg/dL) Ferritin 535.8 H AST 43 H Lactate Dehydrogenase 815 H C-Reactive Protein 81.1 H Urine Protein Urine Bacteria Urine Mucus 02/09/20 02/10/20 02/10/20 16:58 06:20 06:20 Neutrophils # 8.0 H Lymphocytes # 0.4 L D-Dimer Sodium 131 L Potassium Chloride BUN BUN/Creatinine Ratio 30.00 H Glucose POC Glucose (mg/dL) Ferritin AST 43 H Lactate Dehydrogenase C-Reactive Protein Urine Protein 1+ H Urine Bacteria Rare H Urine Mucus Moderate H 02/10/20 11:23 Neutrophils # Lymphocytes # D-Dimer Sodium Potassium Chloride BUN BUN/Creatinine Ratio Glucose POC Glucose (mg/dL) 130 H Ferritin AST Lactate Dehydrogenase C-Reactive Protein Urine Protein Urine Bacteria Urine Mucus - Diagnostic Findings Chest x-ray: image reviewed (Bibasilar opacities) Assessment and Plan Assessment: 1 Acute CoVID 19 pneumonia 2 Acute hypoxemic respiratory failure secondary to above 3 Febrile illness secondary to above 4 Diabetes mellitus, type II 5 Hypertension 6 Hyperlipidemia 7 History of chronic tobacco dependence 8 History of depression Plan: The patient was seen and evaluated by Dr. Sweeney Chest x-ray and labs reviewed Initiate Remdesivir Initiate dexamethasone 6 mg daily 10 days Add Pepcid, vitamin C, vitamin D, melatonin, zinc Repeat chest x-ray in a.m. Titrate down FiO2 as tolerated Continue isolation precautions We'll continue to follow and make further recommendations based on her clinical status I, the cosigning physician, performed a history & physical examination of the patient. Lungs sounds with bilateral scattered rhonchi. Maintaining good O2 saturations in the 90s on 3 L/m per nasal cannula. I discussed the assessment and plan of care with my nurse practitioner, Shirley Colbert. I attest to the above consultation as dictated by her. Time with Patient: Greater than 30
[2020-02-10] MEDS ORDERED: REMDESIVIR (EUA) 200 MG in SODIUM CHLORIDE 0.9% 250 ML IVPB ONE (14:00)
[2020-02-10 16:21] LABS: Glucose,Whole Blood 97 mg/dL (75-99)
[2020-02-10] MEDS ORDERED: MELATONIN 1 MG TAB PO SCH (21:00)
[2020-02-10] MEDS: PRAVASTATIN SODIUM 40 MG TAB PO SCH (21:06)
[2020-02-10] MEDS: LATANOPROST 0.005% OPHTH DROPS 2.5 ML BTL RIGHT EYE SCH (21:06)
[2020-02-10 21:30] LABS: Glucose,Whole Blood 99 mg/dL (75-99)
[2020-02-11] MEDS: SODIUM CHLORIDE 0.9% 1,000 ML IV SCH ×2 (00:17→08:03)
[2020-02-11 07:03] LABS: Glucose,Whole Blood 84 mg/dL (75-99)
[2020-02-11] MEDS ORDERED: PANTOPRAZOLE 40 MG TABLET PO SCH (07:30)
[2020-02-11] MEDS: AZITHROMYCIN 500 MG TAB PO SCH (08:01)
[2020-02-11] MEDS: ASCORBIC ACID 500 MG TAB PO SCH (08:01)
[2020-02-11] MEDS: metFORMIN 500 MG TAB PO SCH ×2 (08:01→17:54)
[2020-02-11] MEDS: ZINC SULFATE 220 MG CAP PO SCH (08:01)
[2020-02-11] MEDS: ASPIRIN 81 MG PO SCH (08:01)
[2020-02-11] MEDS: cloNIDine HCL 0.1 MG TAB PO SCH ×2 (08:02→21:06)
[2020-02-11] MEDS: lisinopriL 20 MG TAB PO SCH (08:02)
[2020-02-11] MEDS: ENOXAPARIN 40 MG/0.4 ML SYRINGE SQ SCH (08:02)
[2020-02-11] MEDS: FLUoxetine HCL 20 MG CAP PO SCH (08:02)
[2020-02-11] MEDS: CHOLECALCIFEROL 1,000 UNIT TAB PO SCH (08:02)
[2020-02-11] MEDS: dexAMETHasone 2 MG TAB PO SCH (08:02)
[2020-02-11] MEDS: CALCIUM CARB-VIT D 500MG-200UN 1 EACH TAB PO SCH (08:02)
[2020-02-11 11:15] LABS: Basophils % (A) 1 %; Eosinophils % (A) 0 %; HCT 37.7 % (34.0-46.0); HGB 12.1 gm/dL (11.4-16.0); Lymphocytes # (A) 0.2 k/uL (1.0-4.8); Lymphocytes % (A) 3 %; MCH 29.5 pg (25.0-35.0); MCHC 32.2 g/dL (31.0-37.0); MCV 91.5 fL (80.0-100.0); Mean Platelet Volume 7.1; Monocytes # (A) 0.2 k/uL (0-1.0); Monocytes % (A) 2 %; Neutrophils # (A) 7.8 k/uL (1.3-7.7); Neutrophils % (A) 94 %; Platelet Count 254 k/uL (150-450); RBC 4.12 m/uL (3.80-5.40); WBC 8.4 k/uL (3.8-10.6)
[2020-02-11 11:51] LABS: Glucose,Whole Blood 102 mg/dL (75-99)
--- NOTE | 2020-02-11 13:01 | P.PN ---
Subjective Progress Note Date: 02/11/20 Principal diagnosis: COVID 19 This is a very pleasant 69-year-old female patient who follows with Dr. Bosch as her primary care provider. She has a history of diabetes mellitus, gastroesophageal reflux disease, hyperlipidemia, hypertension, chronic obstructive pulmonary disease, depression. Approximately 1 week ago she developed symptoms of increased shortness of breath, cough, fatigue and weakness. She was tested for COVID 19 at her primary care provider's office on 02/04/2020 and was found to be positive. Her was positive as well. Yesterday she presented to the emergency room with worsening symptoms. Mainly that of shortness of breath, sinus congestion, fatigue and weakness. We'll had some altered mental status with hallucinations the night prior. She was hypoxemic with the lowest O2 saturation recorded at 89%. T-max of 101.7. Chest x-ray did reveal bilateral lower lobe pneumonia. She is seen today in consultation on the regular medical floor. She is currently resting in bed. She has a congested and still feeling weak. Still some shortness of breath. She is maintaining O2 saturation low 90s on 3 L/m per nasal cannula. Currently afebrile. Hemodynamically stable. White count 8.9. Hemoglobin 12.1. Lymphocytes 0.4. D-dimer 0.72. Sodium 131. Potassium 4.5. Creatinine 0.7. Ferritin 535. LDH 815. C-reactive protein 81.1. Pro-calcitonin 0.07. She will be initiated on Remdesivir, Lovenox, zinc, vitamin C, vitamin D, Pepcid melatonin. On 02/11/2020 patient seen in follow-up on general medical surgical floor, she is feeling better today, she is sitting up in a chair, she was started on Remdesivir yesterday, today is her second treatment commenced on 3 L of oxygen pulse ox 94%, hemodynamically stable, low-grade fever today with a temp of 99.4F. His lab work has been reviewed, show low blood cell count of 8.4, hemog lobin is 12.1, lymphopenia continues with lymphocytic, 0.2. Inflammatory markers are pending. Patient continues on Decadron, Protonix, which we will switch to Pepcid, prophylactic doses of Lovenox, and zinc supplement. No Nausea vomiting or diarrhea. Objective - Vital Signs Vital signs: Vital Signs Temp 99.4 F 02/11/20 07:00 Pulse 64 02/11/20 07:00 Resp 16 02/11/20 07:00 BP 134/56 02/11/20 07:00 Pulse Ox 94 L 02/11/20 07:00 Intake & Output 02/10/20 02/11/20 02/11/20 18:59 06:59 18:59 Other: Voiding Method Toilet # Voids 3 2 # Bowel Movements 2 - Exam GENERAL EXAM: Alert, very pleasant, 69-year-old white female, sitting up in a chair, creatinine 3 L of oxygen, pulse ox of 94%, comfortable in no apparent distress. HEAD: Normocephalic/atraumatic. EYES: Normal reaction of pupils, equal size. Conjunctiva pink, sclera white. NOSE: Clear with pink turbinates. THROAT: No erythema or exudates. NECK: No masses, no JVD, no thyroid enlargement, no adenopathy. CHEST: No chest wall deformity. Symmetrical expansion. LUNGS: Equal air entry with no crackles, wheeze, rhonchi or dullness. CVS: Regular rate and rhythm, normal S1 and S2, no gallops, no murmurs, no rubs ABDOMEN: Soft, nontender. No hepatosplenomegaly, normal bowel sounds, no guarding or rigidity. EXTREMITIES: No clubbing, no edema, no cyanosis, 2+ pulses and upper and lower extremities. MUSCULOSKELETAL: Muscle strength and tone normal. SPINE: No scoliosis or deformity SKIN: No rashes CENTRAL NERVOUS SYSTEM: Alert and oriented -3. No focal deficits, tone is normal in all 4 extremities. PSYCHIATRIC: Alert and oriented -3. Appropriate affect. Intact judgment and i nsight. - Labs CBC & Chem 7: 02/11/20 10:53 02/10/20 06:20 Labs: Abnormal Lab Results - Last 24 Hours (Table) 02/11/20 02/11/20 Range/Units 10:53 11:48 Neutrophils # 7.8 H (1.3-7.7) k/uL Lymphocytes # 0.2 L (1.0-4.8) k/uL POC Glucose (mg/dL) 102 H (75-99) mg/dL Microbiology - Last 24 Hours (Table) 02/09/20 16:24 Blood Culture - Preliminary Blood No Growth after 24 hours Assessment and Plan Plan: Assessment: 1 Acute CoVID 19 pneumonia 2 Acute hypoxemic respiratory failure secondary to above 3 Febrile illness secondary to above 4 Diabetes mellitus, type II 5 Hypertension 6 Hyperlipidemia 7 History of chronic tobacco dependence 8 History of depression Plan: Continue current medical treatment, Remdesivir, Decadron, Pepcid, vitamins C and zinc. We will order inflammatory markers in follow-up. D-dimer. Febrile pattern has improved, patient is feeling better, we'll continue to monitor for worsening dyspnea or worsening hypoxemia. I performed a history & physical examination of the patient and discussed their management with my nurse practitioner, Kimber Gross. I reviewed the nurse practitioner's note and agree with the documented findings and plan of care. Lung sounds are positive for diminished breath sounds. The findings and the impression was discussed with the patient. I attest to the documentation by the nurse practitioner. Time with Patient: Less than 30
[2020-02-11] MEDS: REMDESIVIR (EUA) 100 MG in SODIUM CHLORIDE 0.9% 250 ML IVPB SCH (14:24)
[2020-02-11 15:02] LABS: D-Dimer 0.75 mg/L FEU (<0.60)
[2020-02-11 15:05] LABS: Albumin 3.9 g/dL (3.80-4.90); Albumin/Globulin Ratio 1.95 (1.60-3.17); BUN/Creat Ratio 33.33 Ratio (12.00-20.00); Non-African American GFR(CKD) 92.4 (60.0-200.0); Potassium 4.6 mmol/L (3.5-5.5); Total Bilirubin 0.4 mg/dL (0.3-1.2); Total Protein 5.9 g/dL (6.2-8.2)
[2020-02-11 15:20] LABS: C Reactive Protein 200.3 mg/L (<10.0)
[2020-02-11 16:37] LABS: Glucose,Whole Blood 125 mg/dL (75-99)
[2020-02-11 20:27] LABS: Glucose,Whole Blood 182 mg/dL (75-99)
[2020-02-11] MEDS: PRAVASTATIN SODIUM 40 MG TAB PO SCH (21:06)
[2020-02-11] MEDS: LATANOPROST 0.005% OPHTH DROPS 2.5 ML BTL RIGHT EYE SCH (21:06)
[2020-02-11] MEDS: MELATONIN 5 MG TABLET PO SCH (21:06)
[2020-02-11] MEDS: FAMOTIDINE 20 MG TAB PO SCH (21:06)
[2020-02-12 01:26] LABS: Ferritin 524.7 ng/mL (10.0-291.0)
[2020-02-12 07:15] LABS: Basophils % (A) 0 %; Eosinophils % (A) 0 %; HCT 37.1 % (34.0-46.0); HGB 12.1 gm/dL (11.4-16.0); Lymphocytes # (A) 0.4 k/uL (1.0-4.8); Lymphocytes % (A) 6 %; MCH 29.5 pg (25.0-35.0); MCHC 32.7 g/dL (31.0-37.0); MCV 90.2 fL (80.0-100.0); Mean Platelet Volume 8.1; Monocytes # (A) 0.3 k/uL (0-1.0); Monocytes % (A) 4 %; Neutrophils # (A) 5.8 k/uL (1.3-7.7); Neutrophils % (A) 88 %; Platelet Count 316 k/uL (150-450); RBC 4.11 m/uL (3.80-5.40); RDW 13.2 % (11.5-15.5); WBC 6.6 k/uL (3.8-10.6)
[2020-02-12 07:24] LABS: Glucose,Whole Blood 103 mg/dL (75-99)
[2020-02-12 07:31] LABS: D-Dimer 1.02 mg/L FEU (<0.60)
[2020-02-12] MEDS: CHOLECALCIFEROL 1,000 UNIT TAB PO SCH (07:34)
[2020-02-12] MEDS: cloNIDine HCL 0.1 MG TAB PO SCH ×2 (07:34→21:14)
[2020-02-12] MEDS: metFORMIN 500 MG TAB PO SCH ×2 (07:34→17:15)
[2020-02-12] MEDS: ASPIRIN 81 MG PO SCH (07:35)
[2020-02-12] MEDS: dexAMETHasone 2 MG TAB PO SCH (07:35)
[2020-02-12] MEDS: ASCORBIC ACID 500 MG TAB PO SCH (07:35)
[2020-02-12] MEDS: ENOXAPARIN 40 MG/0.4 ML SYRINGE SQ SCH (07:35)
[2020-02-12] MEDS: ZINC SULFATE 220 MG CAP PO SCH (07:35)
[2020-02-12] MEDS: FAMOTIDINE 20 MG TAB PO SCH ×2 (07:35→21:14)
[2020-02-12] MEDS: CALCIUM CARB-VIT D 500MG-200UN 1 EACH TAB PO SCH (07:35)
[2020-02-12] MEDS: FLUoxetine HCL 20 MG CAP PO SCH (07:35)
[2020-02-12] MEDS: lisinopriL 20 MG TAB PO SCH (07:35)
[2020-02-12 08:49] LABS: ALT 30 U/L (4-34); AST 41 U/L (14-36); African American GFR (CKD) >90 (>60 ml/min/1.73 sqM); Albumin 3.3 g/dL (3.5-5.0); Albumin/Globulin Ratio 1.1; Alkaline Phosphatase 63 U/L (38-126); Anion Gap 7 mmol/L; Blood Urea Nitrogen 18 mg/dL (7-17); Calcium 9.3 mg/dL (8.4-10.2); Carbon Dioxide 25 mmol/L (22-30); Chloride 104 mmol/L (98-107); Glucose 108 mg/dL (74-99); LDH 1011 U/L (313-618); Non-African American GFR(CKD) >90 (>60 ml/min/1.73 sqM); Potassium 4.5 mmol/L (3.5-5.1); Sodium 136 mmol/L (137-145); Total Bilirubin 0.5 mg/dL (0.2-1.3); Total Protein 6.3 g/dL (6.3-8.2)
[2020-02-12 09:19] LABS: C Reactive Protein 156.7 mg/L (<10.0)
[2020-02-12 11:31] LABS: Glucose,Whole Blood 164 mg/dL (75-99)
--- NOTE | 2020-02-12 11:46 | P.PN ---
Subjective Progress Note Date: 02/12/20 Principal diagnosis: CoVid 19 pneumonitis This is a very pleasant 69-year-old female patient who follows with Dr. Bosch as her primary care provider. She has a history of diabetes mellitus, gastroesophageal reflux disease, hyperlipidemia, hypertension, chronic obstructive pulmonary disease, depression. Approximately 1 week ago she developed symptoms of increased shortness of breath, cough, fatigue and weakness. She was tested for COVID 19 at her primary care provider's office on 02/04/2020 and was found to be positive. Her was positive as well. Yesterday she presented to the emergency room with worsening symptoms. Mainly that of shortness of breath, sinus congestion, fatigue and weakness. We'll had some altered mental status with hallucinations the night prior. She was hypoxemic with the lowest O2 saturation recorded at 89%. T-max of 101.7. Chest x-ray did reveal bilateral lower lobe pneumonia. She is seen today in consultation on the regular medical floor. She is currently resting in bed. She has a congested and still feeling weak. Still some shortness of breath. She is maintaining O2 saturation low 90s on 3 L/m per nasal cannula. Currently afebrile. Hemodynamically stable. White count 8.9. Hemoglobin 12.1. Lymphocytes 0.4. D-dimer 0.72. Sodium 131. Potassium 4.5. Creatinine 0.7. Ferritin 535. LDH 815. C-reactive protein 81.1. Pro-calcitonin 0.07. She will be initiated on Remdesivir, Lovenox, zinc, vitamin C, vitamin D, Pepcid melatonin. On 02/11/2020 patient seen in follow-up on general medical surgical floor, she is feeling better today, she is sitting up in a chair, she was started on Remdesivir yesterday, today is her second treatment commenced on 3 L of oxygen pulse ox 94%, hemodynamically stable, low-grade fever today with a temp of 99.4F. His lab work has been reviewed, show low blood cell count of 8.4, hemoglobin is 12.1, lymphopenia continues with lymphocytic, 0.2. Inflammatory markers are pending. Patient continues on Decadron, Protonix, which we will switch to Pepcid, prophylactic doses of Lovenox, and zinc supplement. No Nausea vomiting or diarrhea. The patient is seen today 02/12/2020 in follow-up on the regular medical floor. She is a bit more less short of breath today. Less fatigued. Feeling a bit better. She is maintaining O2 saturations in the 90s on 4 L/m per nasal alfredo van. Afebrile. Hemodynamically stable. The cultures reveal no growth. White count 6.6. Hemoglobin 12.1. Lymphocytes 0.4. D-dimer 1.02. Sodium 136. Potassium 4.5. Creatinine 0.49. LDH 1011, C-reactive protein 156. This is day 3 of Remdesivir. She is maintained on melatonin, zinc, vitamin C, vitamin D, Lovenox, Pepcid. Objective - Vital Signs Vital signs: Vital Signs Temp 98.1 F 02/12/20 07:00 Pulse 69 02/12/20 07:00 Resp 20 02/11/20 23:23 BP 126/73 02/12/20 07:00 Pulse Ox 94 L 02/12/20 07:00 Intake & Output 02/11/20 02/12/20 02/12/20 18:59 06:59 18:59 Intake Total 800 Balance 800 Intake: Intake, IV Titration 200 Amount Sodium Chloride 0.9% 1, 200 000 ml @ 100 mls/hr IV . Q10H [facility] Rx#:[id number] Oral 600 Other: Voiding Method Toilet # Voids 4 2 # Bowel Movements 2 1 - Exam GENERAL EXAM: Alert, very pleasant, 69-year-old female patient, sitting up in a chair, creatinine 4 L of oxygen, pulse ox of 94%, comfortable in no apparent distress. HEAD: Normocephalic/atraumatic. EYES: Normal reaction of pupils, equal size. Conjunctiva pink, sclera white. NOSE: Clear with pink turbinates. THROAT: No erythema or exudates. NECK: No masses, no JVD, no thyroid enlargement, no adenopathy. CHEST: No chest wall deformity. Symmetrical expansion. LUNGS: Equal air entry with few scattered rhonchi. CVS: Regular rate and rhythm, normal S1 and S2, no gallops, no murmurs, no rubs ABDOMEN: Soft, nontender. No hepatosplenomegaly, normal bowel sounds, no guarding or rigidity. EXTREMITIES: No clubbing, no edema, no cyanosis, 2+ pulses and upper and lower extremities. MUSCULOSKELETAL: Muscle strength and tone normal. SPINE: No scoliosis or deformity SKIN: No rashes CENTRAL NERVOUS SYSTEM: Alert and oriented -3. No focal deficits, tone is normal in all 4 extremities. PSYCHIATRIC: Alert and oriented -3. Appropriate affect. Intact judgment and insight. - Labs CBC & Chem 7: 02/12/20 06:41 02/12/20 06:41 Labs: Abnormal Lab Results - Last 24 Hours (Table) 02/11/20 02/11/20 02/11/20 Range/Units 10:53 11:48 14:24 Lymphocytes # (1.0-4.8) k/uL Fibrinogen 610 H (200-500) mg/dL D-Dimer 0.75 H (<0.60) mg/L FEU Sodium 133 L (135-145) mmol/L BUN (7-17) mg/dL Creatinine (0.52-1.04) mg/dL BUN/Creatinine Ratio 33.33 H (12.00-20.00) Ratio Glucose 115 H (70-110) mg/dL POC Glucose (mg/dL) 102 H (75-99) mg/dL Ferritin (10.0-291.0) ng/mL AST 37 H (13-35) U/L Lactate Dehydrogenase (313-618) U/L C-Reactive Protein (<10.0) mg/L Total Protein 5.9 L (6.2-8.2) g/dL Albumin (3.5-5.0) g/dL 02/11/20 02/11/20 02/11/20 Range/Units 14:24 16:35 20:25 Lymphocytes # (1.0-4.8) k/uL Fibrinogen (200-500) mg/dL D-Dimer (<0.60) mg/L FEU Sodium (135-145) mmol/L BUN (7-17) mg/dL Creatinine (0.52-1.04) mg/dL BUN/Creatinine Ratio (12.00-20.00) Ratio Glucose (70-110) mg/dL POC Glucose (mg/dL) 125 H 182 H (75-99) mg/dL Ferritin 524.7 H (10.0-291.0) ng/mL AST (13-35) U/L Lactate Dehydrogenase 948 H (313-618) U/L C-Reactive Protein 200.3 H (<10.0) mg/L Total Protein (6.2-8.2) g/dL Albumin (3.5-5.0) g/dL 02/12/20 02/12/20 02/12/20 Range/Units 06:41 06:41 06:41 Lymphocytes # 0.4 L (1.0-4.8) k/uL Fibrinogen 575 H (200-500) mg/dL D-Dimer 1.02 H (<0.60) mg/L FEU Sodium 136 L (135-145) mmol/L BUN 18 H (7-17) mg/dL Creatinine 0.49 L (0.52-1.04) mg/dL BUN/Creatinine Ratio (12.00-20.00) Ratio Glucose 108 H (70-110) mg/dL POC Glucose (mg/dL) (75-99) mg/dL Ferritin (10.0-291.0) ng/mL AST 41 H (13-35) U/L Lactate Dehydrogenase 1011 H (313-618) U/L C-Reactive Protein 156.7 H (<10.0) mg/L Total Protein (6.2-8.2) g/dL Albumin 3.3 L (3.5-5.0) g/dL 02/12/20 02/12/20 Range/Units 07:23 11:29 Lymphocytes # (1.0-4.8) k/uL Fibrinogen (200-500) mg/dL D-Dimer (<0.60) mg/L FEU Sodium (135-145) mmol/L BUN (7-17) mg/dL Creatinine (0.52-1.04) mg/dL BUN/Creatinine Ratio (12.00-20.00) Ratio Glucose (70-110) mg/dL POC Glucose (mg/dL) 103 H 164 H (75-99) mg/dL Ferritin (10.0-291.0) ng/mL AST (13-35) U/L Lactate Dehydrogenase (313-618) U/L C-Reactive Protein (<10.0) mg/L Total Protein (6.2-8.2) g/dL Albumin (3.5-5.0) g/dL Microbiology - Last 24 Hours (Table) 02/09/20 16:24 Blood Culture - Preliminary Blood No Growth after 48 hours Assessment and Plan Assessment: 1 Acute CoVID 19 pneumonia 2 Acute hypoxemic respiratory failure secondary to above 3 Febrile illness secondary to above 4 Diabetes mellitus, type II 5 Hypertension 6 Hyperlipidemia 7 History of chronic tobacco dependence 8 History of depression Plan: The patient was seen and evaluated by Dr. Sweeney Chest x-ray and labs reviewed Continue Remdesivir Continue dexamethasone 6 mg daily 10 days Continue Pepcid, vitamin C, vitamin D, melatonin, zinc Repeat chest x-ray in a.m. Titrate down FiO2 as tolerated Continue isolation precautions We'll continue to follow and make further recommendations based on her clinical status I, the cosigning physician, performed a history & physical examination of the patient. Lungs sounds with bilateral scattered rhonchi. Maintaining good O2 saturations in the 90s on 3 L/m per nasal cannula. I discussed the assessment and plan of care with my nurse practitioner, Shirley Colbert. I attest to the above consultation as dictated by her.
--- NOTE | 2020-02-12 11:55 | P.PN ---
Subjective Progress Note Date: 02/11/20 Tereza Greene, he is a 69-year-old female well known to my practice who presented to his office with her on , 02/03/2020 complaining of cough and stating that they were exposed to a relative who was positive for Covid 19, Covid 19 testing was done in the office at that time and they were given a course of Zithromax and a course of prednisone, testing came back positive for Covid 19 for both patient and her patient was initially stable however she developed worsening cough and worsening shortness of breath, she was told to go to emergency room. Patient was evaluated in the emergency room, vital examination on presentation revealed a temperature of 99.5 pulse 65 respiration 18 blood pressure 131/50 pulse ox 91% on room air white blood count was 9.7 sodium 127 BUN 26 creatinine 0.75 chest x-ray revealed evidence of by basilar infiltrates patient was admitted to medical floor she was started on IV dexamethasone and IV Rocephin and Zithromax pulmonary consultation was re quested. Patient has a known history of hypertension, hyperlipidemia, and [id number] diabetes mellitus On review of systems patient is complaining of fatigue and generalized weakness she is complaining of fever and cough and shortness of breath with any activity otherwise she denies any complaints, there is no headache or dizziness no chest pain no palpitation no nausea or vomiting no abdominal pain no diarrhea no blood in the stools no burning with urination no frequency or urgency no hematuria On 02/11/2020 patient was seen and examined on the medical floor she is alert and oriented 3 in no apparent distress, she is maintained on oxygen via nasal cannula she is still complaining of cough and shortness of breath, otherwise she denies any complaints there is no fever or chills no headache or dizziness no chest pain no palpitation no nausea or vomiting no abdominal pain no diarrhea no blood in the stools no burning with urination no frequency or urgency and no immature he Objective - Vital Signs Vital signs: Vital Signs Temp 99.4 F 02/11/20 07:00 Pulse 64 02/11/20 07:00 Resp 16 02/11/20 07:00 BP 134/56 02/11/20 07:00 Pulse Ox 94 L 02/11/20 07:00 Intake & Output 02/10/20 02/11/20 02/11/20 18:59 06:59 18:59 Other: Voiding Method Toilet # Voids 3 2 # Bowel Movements 2 - Exam In general patient is alert and oriented 3 in no distress HEENT head normocephalic and atraumatic Neck is supple no JVD no goiter no lymphadenopathy Chest exam reveals a scattered crackles bilaterally no wheezing Cardiac exam reveals regular heart sounds no murmurs Abdomen is soft nontender no organomegaly was normal bowel sounds Extremity exam reveals no edema no cyanosis or clubbing Neurological examination reveals no gross focal deficit - Labs CBC & Chem 7: 02/12/20 06:41 02/12/20 06:41 Labs: Abnormal Lab Results - Last 24 Hours (Table) 02/10/20 02/10/20 Range/Units 06:20 11:23 Sodium 131 L (135-145) mmol/L BUN/Creatinine Ratio 30.00 H (12.00-20.00) Ratio POC Glucose (mg/dL) 130 H (75-99) mg/dL AST 43 H (13-35) U/L Microbiology - Last 24 Hours (Table) 02/09/20 16:24 Blood Culture - Preliminary Blood No Growth after 24 hours Assessment and Plan Plan: 1. Bibasilar infiltrate compatible was pneumonia 2. Positive Covid 19 testing on 02/03/2020 3. Underlying history of mes-zonifjc-gzlzcjrgd diabetes mellitus 4. Underlying history of hypertension 5. Underlying history of hyperlipidemia At this time patient is admitted to medical floor she was started on oxygen supplements IV dexamethasone IV antibiotics Pulmonary consultation is requested Will follow closely
--- NOTE | 2020-02-12 12:17 | P.PN ---
Subjective Progress Note Date: 02/12/20 Tereza Greene, he is a 69-year-old female well known to my practice who presented to his office with her on , 02/03/2020 complaining of cough and stating that they were exposed to a relative who was positive for Covid 19, Covid 19 testing was done in the office at that time and they were given a course of Zithromax and a course of prednisone, testing came back positive for Covid 19 for both patient and her patient was initially stable however she developed worsening cough and worsening shortness of breath, she was told to go to emergency room. Patient was evaluated in the emergency room, vital examination on presentation revealed a temperature of 99.5 pulse 65 respiration 18 blood pressure 131/50 pulse ox 91% on room air white blood count was 9.7 sodium 127 BUN 26 creatinine 0.75 chest x-ray revealed evidence of by basilar infiltrates patient was admitted to medical floor she was started on IV dexamethasone and IV Rocephin and Zithromax pulmonary consultation was re quested. Patient has a known history of hypertension, hyperlipidemia, and urw-[id number] diabetes mellitus On review of systems patient is complaining of fatigue and generalized weakness she is complaining of fever and cough and shortness of breath with any activity otherwise she denies any complaints, there is no headache or dizziness no chest pain no palpitation no nausea or vomiting no abdominal pain no diarrhea no blood in the stools no burning with urination no frequency or urgency no hematuria On 02/11/2020 patient was seen and examined on the medical floor she is alert and oriented 3 in no apparent distress, she is maintained on oxygen via nasal cannula she is still complaining of cough and shortness of breath, otherwise she denies any complaints there is no fever or chills no headache or dizziness no chest pain no palpitation no nausea or vomiting no abdominal pain no diarrhea no blood in the stools no burning with urination no frequency or urgency and no immature he On 02/12/2020 patient was seen and examined on the medical floor she is still complaining of cough and shortness of breath, otherwise she denies any complaints there is no fever or chills no headache or dizziness no chest pain no shortness of breath no cough no nausea or vomiting no abdominal pain no diarrhea no blood in the stools no burning with urination no frequency or urgency no hematuria Objective - Vital Signs Vital signs: Vital Signs Temp 98.1 F 02/12/20 07:00 Pulse 69 02/12/20 07:00 Resp 20 02/11/20 23:23 BP 126/73 02/12/20 07:00 Pulse Ox 94 L 02/12/20 07:00 Intake & Output 02/11/20 02/12/20 02/12/20 18:59 06:59 18:59 Intake Total 800 Balance 800 Intake: Intake, IV Titration 200 Amount Sodium Chloride 0.9% 1, 200 000 ml @ 100 mls/hr IV . Q10H [facility] Rx#:[id number] Oral 600 Other: Voiding Method Toilet # Voids 4 2 # Bowel Movements 2 1 - Exam In general patient is alert and oriented 3 in no distress HEENT head normocephalic and atraumatic Neck is supple no JVD no goiter no lymphadenopathy Chest exam reveals a scattered crackles bilaterally no wheezing Cardiac exam reveals regular heart sounds no murmurs Abdomen is soft nontender no organomegaly was normal bowel sounds Extremity exam reveals no edema no cyanosis or clubbing Neurological examination reveals no gross focal deficit - Labs CBC & Chem 7: 02/12/20 06:41 02/12/20 06:41 Labs: Abnormal Lab Results - Last 24 Hours (Table) 02/11/20 02/11/20 02/11/20 Range/Units 10:53 14:24 14:24 Lymphocytes # (1.0-4.8) k/uL Fibrinogen 610 H (200-500) mg/dL D-Dimer 0.75 H (<0.60) mg/L FEU Sodium 133 L (135-145) mmol/L BUN (7-17) mg/dL Creatinine (0.52-1.04) mg/dL BUN/Creatinine Ratio 33.33 H (12.00-20.00) Ratio Glucose 115 H (70-110) mg/dL POC Glucose (mg/dL) (75-99) mg/dL Ferritin 524.7 H (10.0-291.0) ng/mL AST 37 H (13-35) U/L Lactate Dehydrogenase 948 H (313-618) U/L C-Reactive Protein 200.3 H (<10.0) mg/L Total Protein 5.9 L (6.2-8.2) g/dL Albumin (3.5-5.0) g/dL 02/11/20 02/11/20 02/12/20 Range/Units 16:35 20:25 06:41 Lymphocytes # 0.4 L (1.0-4.8) k/uL Fibrinogen (200-500) mg/dL D-Dimer (<0.60) mg/L FEU Sodium (135-145) mmol/L BUN (7-17) mg/dL Creatinine (0.52-1.04) mg/dL BUN/Creatinine Ratio (12.00-20.00) Ratio Glucose (70-110) mg/dL POC Glucose (mg/dL) 125 H 182 H (75-99) mg/dL Ferritin (10.0-291.0) ng/mL AST (13-35) U/L Lactate Dehydrogenase (313-618) U/L C-Reactive Protein (<10.0) mg/L Total Protein (6.2-8.2) g/dL Albumin (3.5-5.0) g/dL 02/12/20 02/12/20 02/12/20 Range/Units 06:41 06:41 07:23 Lymphocytes # (1.0-4.8) k/uL Fibrinogen 575 H (200-500) mg/dL D-Dimer 1.02 H (<0.60) mg/L FEU Sodium 136 L (135-145) mmol/L BUN 18 H (7-17) mg/dL Creatinine 0.49 L (0.52-1.04) mg/dL BUN/Creatinine Ratio (12.00-20.00) Ratio Glucose 108 H (70-110) mg/dL POC Glucose (mg/dL) 103 H (75-99) mg/dL Ferritin (10.0-291.0) ng/mL AST 41 H (13-35) U/L Lactate Dehydrogenase 1011 H (313-618) U/L C-Reactive Protein 156.7 H (<10.0) mg/L Total Protein (6.2-8.2) g/dL Albumin 3.3 L (3.5-5.0) g/dL 02/12/20 Range/Units 11:29 Lymphocytes # (1.0-4.8) k/uL Fibrinogen (200-500) mg/dL D-Dimer (<0.60) mg/L FEU Sodium (135-145) mmol/L BUN (7-17) mg/dL Creatinine (0.52-1.04) mg/dL BUN/Creatinine Ratio (12.00-20.00) Ratio Glucose (70-110) mg/dL POC Glucose (mg/dL) 164 H (75-99) mg/dL Ferritin (10.0-291.0) ng/mL AST (13-35) U/L Lactate Dehydrogenase (313-618) U/L C-Reactive Protein (<10.0) mg/L Total Protein (6.2-8.2) g/dL Albumin (3.5-5.0) g/dL Microbiology - Last 24 Hours (Table) 02/09/20 16:24 Blood Culture - Preliminary Blood No Growth after 48 hours Assessment and Plan Plan: 1. Bibasilar infiltrate compatible was pneumonia 2. Positive Covid 19 testing on 02/03/2020 3. Underlying history of uih-npvwhbg-ivpjbntfo diabetes mellitus 4. Underlying history of hypertension 5. Underlying history of hyperlipidemia At this time patient is admitted to medical floor she was started on oxygen supplements IV dexamethasone IV antibiotics Pulmonary consultation is requested Will follow closely
[2020-02-12] MEDS: REMDESIVIR (EUA) 100 MG in SODIUM CHLORIDE 0.9% 250 ML IVPB SCH (15:06)
[2020-02-12 16:47] LABS: Glucose,Whole Blood 169 mg/dL (75-99)
[2020-02-12 17:26] LABS: Ferritin 600.1 ng/mL (10.0-291.0)
[2020-02-12 21:03] LABS: Glucose,Whole Blood 132 mg/dL (75-99)
[2020-02-12] MEDS: PRAVASTATIN SODIUM 40 MG TAB PO SCH (21:14)
[2020-02-12] MEDS: MELATONIN 5 MG TABLET PO SCH (21:14)
[2020-02-12] MEDS: LATANOPROST 0.005% OPHTH DROPS 2.5 ML BTL RIGHT EYE SCH (21:14)
[2020-02-13 06:26] LABS: Basophils % (A) 0 %; Eosinophils # (A) 0.1 k/uL (0-0.7); Eosinophils % (A) 1 %; HCT 40.4 % (34.0-46.0); HGB 12.6 gm/dL (11.4-16.0); Hypochromasia Slight; Lymphocytes # (A) 0.9 k/uL (1.0-4.8); Lymphocytes % (A) 9 %; MCH 28.9 pg (25.0-35.0); MCHC 31.1 g/dL (31.0-37.0); MCV 92.8 fL (80.0-100.0); Monocytes # (A) 0.4 k/uL (0-1.0); Monocytes % (A) 3 %; Neutrophils # (A) 9.6 k/uL (1.3-7.7); Neutrophils % (A) 86 %; Platelet Count 429 k/uL (150-450); RBC 4.36 m/uL (3.80-5.40); WBC 11.1 k/uL (3.8-10.6)
[2020-02-13 06:44] LABS: D-Dimer 1.13 mg/L FEU (<0.60)
[2020-02-13 06:56] LABS: Glucose,Whole Blood 75 mg/dL (75-99)
--- NOTE | 2020-02-13 07:35 | XR ---
EXAMINATION TYPE: XR chest 1V portable DATE OF EXAM: 02/13/2020 COMPARISON: 02/09/2020 INDICATION: Covid pneumonitis TECHNIQUE: Single frontal view of the chest is obtained. FINDINGS: The heart size is normal. The pulmonary vasculature is normal. Bibasilar infiltrates are present, greater at the left base. IMPRESSION: 1. Increasing left basilar pneumonia. 2. Milder infiltrate remains at the right base.
[2020-02-13] MEDS: CHOLECALCIFEROL 1,000 UNIT TAB PO SCH (08:10)
[2020-02-13] MEDS: metFORMIN 500 MG TAB PO SCH ×2 (08:10→17:13)
[2020-02-13] MEDS: cloNIDine HCL 0.1 MG TAB PO SCH ×2 (08:10→20:48)
[2020-02-13] MEDS: dexAMETHasone 2 MG TAB PO SCH (08:10)
[2020-02-13] MEDS: ASCORBIC ACID 500 MG TAB PO SCH (08:10)
[2020-02-13] MEDS: ASPIRIN 81 MG PO SCH (08:10)
[2020-02-13] MEDS: FAMOTIDINE 20 MG TAB PO SCH ×2 (08:10→20:48)
[2020-02-13] MEDS: ENOXAPARIN 40 MG/0.4 ML SYRINGE SQ SCH (08:10)
[2020-02-13] MEDS: FLUoxetine HCL 20 MG CAP PO SCH (08:10)
[2020-02-13] MEDS: lisinopriL 20 MG TAB PO SCH (08:10)
[2020-02-13] MEDS: CALCIUM CARB-VIT D 500MG-200UN 1 EACH TAB PO SCH (08:11)
[2020-02-13] MEDS: ZINC SULFATE 220 MG CAP PO SCH (08:11)
[2020-02-13 11:05] LABS: Albumin/Globulin Ratio 1.82 (1.60-3.17); Anion Gap 10.8 mmol/L (4.00-12.00); C Reactive Protein 7.4 mg/dL (0.0-0.8); Calcium 9.6 mg/dL (8.7-10.3); Carbon Dioxide 26.2 mmol/L (21.6-31.8); Ferritin 422.7 ng/mL (10.0-291.0); Globulin 2.2 g/dL (1.6-3.3); Non-African American GFR(CKD) 92.4 (60.0-200.0); Potassium 5.1 mmol/L (3.5-5.5); Total Bilirubin 0.4 mg/dL (0.3-1.2); Total Protein 6.2 g/dL (6.2-8.2)
--- NOTE | 2020-02-13 11:46 | P.PN ---
Subjective Progress Note Date: 02/13/20 Principal diagnosis: CoVid 19 pneumonitis This is a very pleasant 69-year-old female patient who follows with Dr. Bosch as her primary care provider. She has a history of diabetes mellitus, gastroesophageal reflux disease, hyperlipidemia, hypertension, chronic obstructive pulmonary disease, depression. Approximately 1 week ago she developed symptoms of increased shortness of breath, cough, fatigue and weakness. She was tested for COVID 19 at her primary care provider's office on 02/04/2020 and was found to be positive. Her was positive as well. Yesterday she presented to the emergency room with worsening symptoms. Mainly that of shortness of breath, sinus congestion, fatigue and weakness. We'll had some altered mental status with hallucinations the night prior. She was hypoxemic with the lowest O2 saturation recorded at 89%. T-max of 101.7. Chest x-ray did reveal bilateral lower lobe pneumonia. She is seen today in consultation on the regular medical floor. She is currently resting in bed. She has a congested and still feeling weak. Still some shortness of breath. She is maintaining O2 saturation low 90s on 3 L/m per nasal cannula. Currently afebrile. Hemodynamically stable. White count 8.9. Hemoglobin 12.1. Lymphocytes 0.4. D-dimer 0.72. Sodium 131. Potassium 4.5. Creatinine 0.7. Ferritin 535. LDH 815. C-reactive protein 81.1. Pro-calcitonin 0.07. She will be initiated on Remdesivir, Lovenox, zinc, vitamin C, vitamin D, Pepcid melatonin. On 02/11/2020 patient seen in follow-up on general medical surgical floor, she is feeling better today, she is sitting up in a chair, she was started on Remdesivir yesterday, today is her second treatment commenced on 3 L of oxygen pulse ox 94%, hemodynamically stable, low-grade fever today with a temp of 99.4F. His lab work has been reviewed, show low blood cell count of 8.4, hemoglobin is 12.1, lymphopenia continues with lymphocytic, 0.2. Inflammatory markers are pending. Patient continues on Decadron, Protonix, which we will switch to Pepcid, prophylactic doses of Lovenox, and zinc supplement. No Nausea vomiting or diarrhea. The patient is seen today 02/12/2020 in follow-up on the regular medical floor. She is a bit more less short of breath today. Less fatigued. Feeling a bit better. She is maintaining O2 saturations in the 90s on 4 L/m per nasal alfredo van. Afebrile. Hemodynamically stable. The cultures reveal no growth. White count 6.6. Hemoglobin 12.1. Lymphocytes 0.4. D-dimer 1.02. Sodium 136. Potassium 4.5. Creatinine 0.49. LDH 1011, C-reactive protein 156. This is day 3 of Remdesivir. She is maintained on melatonin, zinc, vitamin C, vitamin D, Lovenox, Pepcid. The patient is seen today 02/13/2020 in follow-up on the regular medical floor. She is awake and alert in no acute distress. Currently sitting up in a chair at the bedside. She did require increased to 4 L/m per nasal cannula of oxygen and has since been titrated back down to 2 L. She is dyspneic with minimal exertion. She remains afebrile. Blood culture reveals no growth. White count 11.1. Hemoglobin 12.6. Lymphocytes 0.9. D-dimer 1.13. Sodium 141. Potassium 5.1. Creatinine 0.6. C-reactive protein 7.4. LDH 375. She is on day #4 of Remdesivir. She is maintained on melatonin, zinc, vitamin C, vitamin D, Lovenox, Pepcid. Chest x-ray continues to show basilar infiltrates, left greater than right Objective - Vital Signs Vital signs: Vital Signs Temp 98.1 F 02/13/20 07:00 Pulse 72 02/13/20 07:00 Resp 20 02/13/20 08:00 BP 146/69 02/13/20 07:00 Pulse Ox 90 L 02/13/20 07:00 Intake & Output 02/12/20 02/13/20 02/13/20 19:59 06:59 18:59 Intake Total Balance Intake: Oral Other: Voiding Method # Voids 2 # Bowel Movements - Exam GENERAL EXAM: Alert, very pleasant, 69-year-old female patient, sitting up in a chair, creatinine 2 L of oxygen, pulse ox of 90%, comfortable in no apparent distress. HEAD: Normocephalic/atraumatic. EYES: Normal reaction of pupils, equal size. Conjunctiva pink, sclera white. NOSE: Clear with pink turbinates. THROAT: No erythema or exudates. NECK: No masses, no JVD, no thyroid enlargement, no adenopathy. CHEST: No chest wall deformity. Symmetrical expansion. LUNGS: Equal air entry with few scattered rhonchi. CVS: Regular rate and rhythm, normal S1 and S2, no gallops, no murmurs, no rubs ABDOMEN: Soft, nontender. No hepatosplenomegaly, normal bowel sounds, no guarding or rigidity. EXTREMITIES: No clubbing, no edema, no cyanosis, 2+ pulses and upper and lower extremities. MUSCULOSKELETAL: Muscle strength and tone normal. SPINE: No scoliosis or deformity SKIN: No rashes CENTRAL NERVOUS SYSTEM: Alert and oriented -3. No focal deficits, tone is normal in all 4 extremities. PSYCHIATRIC: Alert and oriented -3. Appropriate affect. Intact judgment and insight. - Labs CBC & Chem 7: 02/13/20 06:03 02/13/20 06:03 Labs: Abnormal Lab Results - Last 24 Hours (Table) 02/12/20 02/12/20 02/12/20 Range/Units 06:41 16:44 21:01 WBC (3.8-10.6) k/uL Neutrophils # (1.3-7.7) k/uL Lymphocytes # (1.0-4.8) k/uL Fibrinogen (200-500) mg/dL D-Dimer (<0.60) mg/L FEU BUN/Creatinine Ratio (12.00-20.00) Ratio POC Glucose (mg/dL) 169 H 132 H (75-99) mg/dL Ferritin 600.1 H (10.0-291.0) ng/mL Lactate Dehydrogenase (120-246) U/L C-Reactive Protein (0.0-0.8) mg/dL 02/13/20 02/13/20 02/13/20 Range/Units 06:03 06:03 06:03 WBC 11.1 H (3.8-10.6) k/uL Neutrophils # 9.6 H (1.3-7.7) k/uL Lymphocytes # 0.9 L (1.0-4.8) k/uL Fibrinogen 533 H (200-500) mg/dL D-Dimer 1.13 H (<0.60) mg/L FEU BUN/Creatinine Ratio 35.00 H (12.00-20.00) Ratio POC Glucose (mg/dL) (75-99) mg/dL Ferritin 422.7 H (10.0-291.0) ng/mL Lactate Dehydrogenase 375 H (120-246) U/L C-Reactive Protein 7.4 H (0.0-0.8) mg/dL Microbiology - Last 24 Hours (Table) 02/09/20 16:24 Blood Culture - Preliminary Blood No Growth after 72 hours Assessment and Plan Assessment: 1 Acute CoVID 19 pneumonia 2 Acute hypoxemic respiratory failure secondary to above 3 Febrile illness secondary to above, recovered 4 Diabetes mellitus, type II 5 Hypertension 6 Hyperlipidemia 7 History of chronic tobacco dependence 8 History of depression Plan: The patient was seen and evaluated by Dr. Sweeney Chest x-ray and labs reviewed Continue Remdesivir Continue dexamethasone 6 mg daily 10 days Continue Pepcid, vitamin C, vitamin D, melatonin, zinc Add incentive spirometer Titrate down FiO2 as tolerated Increase her activity as tolerated Continue isolation precautions We'll continue to follow and make further recommendations based on her clinical status I, the cosigning physician, performed a history & physical examination of the patient. Lungs sounds with bilateral scattered rhonchi. Maintaining good O2 saturations in the 90s on 2 L/m per nasal cannula. I discussed the assessment and plan of care with my nurse practitioner, Shirley Colbert. I attest to the above consultation as dictated by her.
[2020-02-13 11:51] LABS: Glucose,Whole Blood 163 mg/dL (75-99)
[2020-02-13] MEDS: REMDESIVIR (EUA) 100 MG in SODIUM CHLORIDE 0.9% 250 ML IVPB SCH (16:14)
[2020-02-13 17:22] LABS: Glucose,Whole Blood 205 mg/dL (75-99)
[2020-02-13] MEDS: PRAVASTATIN SODIUM 40 MG TAB PO SCH (20:48)
[2020-02-13] MEDS: MELATONIN 5 MG TABLET PO SCH (20:48)
[2020-02-13] MEDS: LATANOPROST 0.005% OPHTH DROPS 2.5 ML BTL RIGHT EYE SCH (20:48)
[2020-02-13 20:53] LABS: Glucose,Whole Blood 114 mg/dL (75-99)
[2020-02-14 06:44] LABS: Basophils % (A) 0 %; Eosinophils # (A) 0.1 k/uL (0-0.7); Eosinophils % (A) 1 %; HCT 35.5 % (34.0-46.0); HGB 11.2 gm/dL (11.4-16.0); Lymphocytes # (A) 0.6 k/uL (1.0-4.8); Lymphocytes % (A) 7 %; MCH 28.9 pg (25.0-35.0); MCHC 31.5 g/dL (31.0-37.0); MCV 91.6 fL (80.0-100.0); Mean Platelet Volume 7.2; Monocytes # (A) 0.4 k/uL (0-1.0); Monocytes % (A) 4 %; Neutrophils # (A) 7.7 k/uL (1.3-7.7); Neutrophils % (A) 86 %; Platelet Count 378 k/uL (150-450); RBC 3.87 m/uL (3.80-5.40); WBC 8.9 k/uL (3.8-10.6)
[2020-02-14 06:58] LABS: Glucose,Whole Blood 73 mg/dL (75-99)
[2020-02-14 06:58] LABS: D-Dimer 1.12 mg/L FEU (<0.60)
[2020-02-14] MEDS: cloNIDine HCL 0.1 MG TAB PO SCH ×2 (08:00→20:46)
[2020-02-14] MEDS: ASCORBIC ACID 500 MG TAB PO SCH (08:00)
[2020-02-14] MEDS: ENOXAPARIN 40 MG/0.4 ML SYRINGE SQ SCH (08:00)
[2020-02-14] MEDS: FLUoxetine HCL 20 MG CAP PO SCH (08:01)
[2020-02-14] MEDS: ASPIRIN 81 MG PO SCH (08:01)
[2020-02-14] MEDS: CALCIUM CARB-VIT D 500MG-200UN 1 EACH TAB PO SCH (08:01)
[2020-02-14] MEDS: FAMOTIDINE 20 MG TAB PO SCH ×2 (08:01→20:46)
[2020-02-14] MEDS: CHOLECALCIFEROL 1,000 UNIT TAB PO SCH (08:01)
[2020-02-14] MEDS: lisinopriL 20 MG TAB PO SCH (08:01)
[2020-02-14] MEDS: dexAMETHasone 2 MG TAB PO SCH (08:02)
[2020-02-14] MEDS: metFORMIN 500 MG TAB PO SCH ×2 (08:02→16:48)
[2020-02-14] MEDS: ZINC SULFATE 220 MG CAP PO SCH (08:02)
[2020-02-14 09:31] LABS: African American GFR (CKD) 113.7 (60.0-200.0); Albumin 3.4 g/dL (3.80-4.90); Albumin/Globulin Ratio 1.7 (1.60-3.17); C Reactive Protein 6.2 mg/dL (0.0-0.8); Ferritin 310.6 ng/mL (10.0-291.0); Non-African American GFR(CKD) 98.1 (60.0-200.0); Potassium 4.4 mmol/L (3.5-5.5); Total Bilirubin 0.4 mg/dL (0.3-1.2); Total Protein 5.4 g/dL (6.2-8.2)
[2020-02-14 11:36] LABS: Glucose,Whole Blood 105 mg/dL (75-99)
--- NOTE | 2020-02-14 13:23 | P.PN ---
Subjective Progress Note Date: 02/14/20 Principal diagnosis: COVID 19 This is a very pleasant 69-year-old female patient who follows with Dr. Bosch as her primary care provider. She has a history of diabetes mellitus, gastroesophageal reflux disease, hyperlipidemia, hypertension, chronic obstructive pulmonary disease, depression. Approximately 1 week ago she developed symptoms of increased shortness of breath, cough, fatigue and weakness. She was tested for COVID 19 at her primary care provider's office on 02/04/2020 and was found to be positive. Her was positive as well. Yesterday she presented to the emergency room with worsening symptoms. Mainly that of shortness of breath, sinus congestion, fatigue and weakness. We'll had some altered mental status with hallucinations the night prior. She was hypoxemic with the lowest O2 saturation recorded at 89%. T-max of 101.7. Chest x-ray did reveal bilateral lower lobe pneumonia. She is seen today in consultation on the regular medical floor. She is currently resting in bed. She has a congested and still feeling weak. Still some shortness of breath. She is maintaining O2 saturation low 90s on 3 L/m per nasal cannula. Currently afebrile. Hemodynamically stable. White count 8.9. Hemoglobin 12.1. Lymphocytes 0.4. D-dimer 0.72. Sodium 131. Potassium 4.5. Creatinine 0.7. Ferritin 535. LDH 815. C-reactive protein 81.1. Pro-calcitonin 0.07. She will be initiated on Remdesivir, Lovenox, zinc, vitamin C, vitamin D, Pepcid melatonin. On 02/11/2020 patient seen in follow-up on general medical surgical floor, she is feeling better today, she is sitting up in a chair, she was started on Remdesivir yesterday, today is her second treatment commenced on 3 L of oxygen pulse ox 94%, hemodynamically stable, low-grade fever today with a temp of 99.4F. His lab work has been reviewed, show low blood cell count of 8.4, hemog lobin is 12.1, lymphopenia continues with lymphocytic, 0.2. Inflammatory markers are pending. Patient continues on Decadron, Protonix, which we will switch to Pepcid, prophylactic doses of Lovenox, and zinc supplement. No Nausea vomiting or diarrhea. On 02/14/2020 patient seen in follow-up on [facility] medical surgical floor, is awake and alert, she is currently on 4 L of oxygen pulse ox is 95%, she has been afebrile over the last couple of days, breathing is nonlabored, patient does have exertional dyspnea, no chest discomfort, no nausea vomiting diarrhea, yesterday's chest x-ray shows increasing left basilar pneumonia. Patient is on day 4 of Remdesivir, she is on oral Decadron, LDH and CRP have significantly improved since admission. D-dimer is 1.12. Patient is on 40 daily of Lovenox. No acute events overnight. Cultures have revealed no growth. Objective - Vital Signs Vital signs: Vital Signs Temp 98.3 F 02/14/20 07:00 Pulse 71 02/14/20 07:00 Resp 18 02/14/20 07:00 BP 128/73 02/14/20 07:00 Pulse Ox 95 02/14/20 11:03 Intake & Output 02/13/20 02/14/20 02/14/20 18:59 06:59 18:59 Intake Total 650 Balance 650 Intake: Oral 650 Other: Voiding Method Toilet # Voids 3 1 1 - Exam GENERAL EXAM: Alert, very pleasant, 69-year-old white female, sitting up in a chair, creatinine 4 L of oxygen, pulse ox of 95%, comfortable in no apparent distress. HEAD: Normocephalic/atraumatic. EYES: Normal reaction of pupils, equal size. Conjunctiva pink, sclera white. NOSE: Clear with pink turbinates. THROAT: No erythema or exudates. NECK: No masses, no JVD, no thyroid enlargement, no adenopathy. CHEST: No chest wall deformity. Symmetrical expansion. LUNGS: Equal air entry with no crackles, wheeze, rhonchi or dullness. CVS: Regular rate and rhythm, normal S1 and S2, no gallops, no murmurs, no rubs ABDOMEN: Soft, nontender. No hepatosplenomegaly, normal bowel sounds, no guarding or rigidity. EXTREMITIES: No clubbing, no edema, no cyanosis, 2+ pulses and upper and lower extremities. MUSCULOSKELETAL: Muscle strength and tone normal. SPINE: No scoliosis or deformity SKIN: No rashes CENTRAL NERVOUS SYSTEM: Alert and oriented -3. No focal deficits, tone is normal in all 4 extremities. PSYCHIATRIC: Alert and oriented -3. Appropriate affect. Intact judgment and insight. - Labs CBC & Chem 7: 02/14/20 05:33 02/14/20 05:33 Labs: Abnormal Lab Results - Last 24 Hours (Table) 02/13/20 02/13/20 02/14/20 Range/Units 17:09 20:51 05:33 Hgb 11.2 L (11.4-16.0) gm/dL Lymphocytes # 0.6 L (1.0-4.8) k/uL D-Dimer (<0.60) mg/L FEU Creatinine (0.6-1.5) mg/dL BUN/Creatinine Ratio (12.00-20.00) Ratio POC Glucose (mg/dL) 205 H 114 H (75-99) mg/dL Ferritin (10.0-291.0) ng/mL Lactate Dehydrogenase (120-246) U/L C-Reactive Protein (0.0-0.8) mg/dL Total Protein (6.2-8.2) g/dL Albumin (3.80-4.90) g/dL 02/14/20 02/14/20 02/14/20 Range/Units 05:33 05:33 06:57 Hgb (11.4-16.0) gm/dL Lymphocytes # (1.0-4.8) k/uL D-Dimer 1.12 H (<0.60) mg/L FEU Creatinine 0.5 L (0.6-1.5) mg/dL BUN/Creatinine Ratio 40.00 H (12.00-20.00) Ratio POC Glucose (mg/dL) 73 L (75-99) mg/dL Ferritin 310.6 H (10.0-291.0) ng/mL Lactate Dehydrogenase 316 H (120-246) U/L C-Reactive Protein 6.2 H (0.0-0.8) mg/dL Total Protein 5.4 L (6.2-8.2) g/dL Albumin 3.40 L (3.80-4.90) g/dL 02/14/20 Range/Units 11:34 Hgb (11.4-16.0) gm/dL Lymphocytes # (1.0-4.8) k/uL D-Dimer (<0.60) mg/L FEU Creatinine (0.6-1.5) mg/dL BUN/Creatinine Ratio (12.00-20.00) Ratio POC Glucose (mg/dL) 105 H (75-99) mg/dL Ferritin (10.0-291.0) ng/mL Lactate Dehydrogenase (120-246) U/L C-Reactive Protein (0.0-0.8) mg/dL Total Protein (6.2-8.2) g/dL Albumin (3.80-4.90) g/dL Microbiology - Last 24 Hours (Table) 02/09/20 16:24 Blood Culture - Preliminary Blood No Growth after 96 hours Assessment and Plan Plan: Assessment: 1 Acute CoVID 19 pneumonia 2 Acute hypoxemic respiratory failure secondary to above 3 Febrile illness secondary to above, improved 4 Diabetes mellitus, type II 5 Hypertension 6 Hyperlipidemia 7 History of chronic tobacco dependence 8 History of depression Plan: Continue current treatment, patient is on day 4 Remdesivir, continue oral Decadron, prophylactic doses of Lovenox, attained following inflammatory markers, they are improving, encouraged the patient to increase activity, sitting up in the chair, vital signs have been stable, afebrile. We'll continue to follow I performed a history & physical examination of the patient and discussed their management with my nurse practitioner, Kimber Gross. I reviewed the nurse practitioner's note and agree with the documented findings and plan of care. Lung sounds are positive for diminished breath sounds. The findings and the impression was discussed with the patient. I attest to the documentation by the nurse practitioner. Time with Patient: Less than 30
[2020-02-14] MEDS: REMDESIVIR (EUA) 100 MG in SODIUM CHLORIDE 0.9% 250 ML IVPB SCH (13:55)
[2020-02-14 16:27] LABS: Glucose,Whole Blood 191 mg/dL (75-99)
--- NOTE | 2020-02-14 17:15 | P.PN ---
Subjective Progress Note Date: 02/13/20 Tereza Greene, he is a 69-year-old female well known to my practice who presented to his office with her on , 02/03/2020 complaining of cough and stating that they were exposed to a relative who was positive for Covid 19, Covid 19 testing was done in the office at that time and they were given a course of Zithromax and a course of prednisone, testing came back positive for Covid 19 for both patient and her patient was initially stable however she developed worsening cough and worsening shortness of breath, she was told to go to emergency room. Patient was evaluated in the emergency room, vital examination on presentation revealed a temperature of 99.5 pulse 65 respiration 18 blood pressure 131/50 pulse ox 91% on room air white blood count was 9.7 sodium 127 BUN 26 creatinine 0.75 chest x-ray revealed evidence of by basilar infiltrates patient was admitted to medical floor she was started on IV dexamethasone and IV Rocephin and Zithromax pulmonary consultation was re quested. Patient has a known history of hypertension, hyperlipidemia, and aim-skxmvii-yswibdpva diabetes mellitus On review of systems patient is complaining of fatigue and generalized weakness she is complaining of fever and cough and shortness of breath with any activity otherwise she denies any complaints, there is no headache or dizziness no chest pain no palpitation no nausea or vomiting no abdominal pain no diarrhea no blood in the stools no burning with urination no frequency or urgency no hematuria On 02/11/2020 patient was seen and examined on the medical floor she is alert and oriented 3 in no apparent distress, she is maintained on oxygen via nasal cannula she is still complaining of cough and shortness of breath, otherwise she denies any complaints there is no fever or chills no headache or dizziness no chest pain no palpitation no nausea or vomiting no abdominal pain no diarrhea no blood in the stools no burning with urination no frequency or urgency and no immature he On 02/12/2020 patient was seen and examined on the medical floor she is still complaining of cough and shortness of breath, otherwise she denies any complaints there is no fever or chills no headache or dizziness no chest pain no shortness of breath no cough no nausea or vomiting no abdominal pain no diarrhea no blood in the stools no burning with urination no frequency or urgency no hematuria. On 02/13/2020 patient was seen and examined on the medical floor she is complaining of cough and shortness of breath otherwise she denies any complaints there is no fever or chills no headache or dizziness no chest pain no nausea or vomiting no abdominal pain no diarrhea no blood in the stools no burning with urination no frequency or urgency no hematuria Objective - Vital Signs Vital signs: Vital Signs Temp 98.3 F 02/13/20 03:09 Pulse 62 02/13/20 03:09 Resp 17 02/13/20 03:10 BP 135/69 02/13/20 03:09 Pulse Ox 93 L 02/13/20 03:09 Intake & Output 02/12/20 02/13/20 02/13/20 19:59 06:59 18:59 Intake Total Balance Intake: Oral Other: Voiding Method # Voids # Bowel Movements - Exam In general patient is alert and oriented 3 in no distress HEENT head normocephalic and atraumatic Neck is supple no JVD no goiter no lymphadenopathy Chest exam reveals a scattered crackles bilaterally no wheezing Cardiac exam reveals regular heart sounds no murmurs Abdomen is soft nontender no organomegaly was normal bowel sounds Extremity exam reveals no edema no cyanosis or clubbing Neurological examination reveals no gross focal deficit - Labs CBC & Chem 7: 02/14/20 05:33 02/14/20 05:33 Labs: Abnormal Lab Results - Last 24 Hours (Table) 02/12/20 02/12/20 02/12/20 Range/Units 06:41 11:29 16:44 WBC (3.8-10.6) k/uL Neutrophils # (1.3-7.7) k/uL Lymphocytes # (1.0-4.8) k/uL Fibrinogen (200-500) mg/dL D-Dimer (<0.60) mg/L FEU Sodium 136 L (137-145) mmol/L BUN 18 H (7-17) mg/dL Creatinine 0.49 L (0.52-1.04) mg/dL Glucose 108 H (74-99) mg/dL POC Glucose (mg/dL) 164 H 169 H (75-99) mg/dL Ferritin 600.1 H (10.0-291.0) ng/mL AST 41 H (14-36) U/L Lactate Dehydrogenase 1011 H (313-618) U/L C-Reactive Protein 156.7 H (<10.0) mg/L Albumin 3.3 L (3.5-5.0) g/dL 02/12/20 02/13/20 02/13/20 Range/Units 21:01 06:03 06:03 WBC 11.1 H (3.8-10.6) k/uL Neutrophils # 9.6 H (1.3-7.7) k/uL Lymphocytes # 0.9 L (1.0-4.8) k/uL Fibrinogen 533 H (200-500) mg/dL D-Dimer 1.13 H (<0.60) mg/L FEU Sodium (137-145) mmol/L BUN (7-17) mg/dL Creatinine (0.52-1.04) mg/dL Glucose (74-99) mg/dL POC Glucose (mg/dL) 132 H (75-99) mg/dL Ferritin (10.0-291.0) ng/mL AST (14-36) U/L Lactate Dehydrogenase (313-618) U/L C-Reactive Protein (<10.0) mg/L Albumin (3.5-5.0) g/dL Microbiology - Last 24 Hours (Table) 02/09/20 16:24 Blood Culture - Preliminary Blood No Growth after 72 hours Assessment and Plan Plan: 1. Bibasilar infiltrate compatible was pneumonia 2. Positive Covid 19 testing on 02/03/2020 3. Underlying history of orw-aptojei-aqzngoukj diabetes mellitus 4. Underlying history of hypertension 5. Underlying history of hyperlipidemia At this time patient is admitted to medical floor she was started on oxygen supplements IV dexamethasone IV antibiotics Pulmonary consultation is requested Will follow closely
--- NOTE | 2020-02-14 17:57 | P.PN ---
Subjective Progress Note Date: 02/14/20 Tereza Greene, he is a 69-year-old female well known to my practice who presented to his office with her on , 02/03/2020 complaining of cough and stating that they were exposed to a relative who was positive for Covid 19, Covid 19 testing was done in the office at that time and they were given a course of Zithromax and a course of prednisone, testing came back positive for Covid 19 for both patient and her patient was initially stable however she developed worsening cough and worsening shortness of breath, she was told to go to emergency room. Patient was evaluated in the emergency room, vital examination on presentation revealed a temperature of 99.5 pulse 65 respiration 18 blood pressure 131/50 pulse ox 91% on room air white blood count was 9.7 sodium 127 BUN 26 creatinine 0.75 chest x-ray revealed evidence of by basilar infiltrates patient was admitted to medical floor she was started on IV dexamethasone and IV Rocephin and Zithromax pulmonary consultation was re quested. Patient has a known history of hypertension, hyperlipidemia, and cly-gecdjps-jljhzzzvy diabetes mellitus On review of systems patient is complaining of fatigue and generalized weakness she is complaining of fever and cough and shortness of breath with any activity otherwise she denies any complaints, there is no headache or dizziness no chest pain no palpitation no nausea or vomiting no abdominal pain no diarrhea no blood in the stools no burning with urination no frequency or urgency no hematuria On 02/11/2020 patient was seen and examined on the medical floor she is alert and oriented 3 in no apparent distress, she is maintained on oxygen via nasal cannula she is still complaining of cough and shortness of breath, otherwise she denies any complaints there is no fever or chills no headache or dizziness no chest pain no palpitation no nausea or vomiting no abdominal pain no diarrhea no blood in the stools no burning with urination no frequency or urgency and no immature he On 02/12/2020 patient was seen and examined on the medical floor she is still complaining of cough and shortness of breath, otherwise she denies any complaints there is no fever or chills no headache or dizziness no chest pain no shortness of breath no cough no nausea or vomiting no abdominal pain no diarrhea no blood in the stools no burning with urination no frequency or urgency no hematuria. On 02/13/2020 patient was seen and examined on the medical floor she is complaining of cough and shortness of breath otherwise she denies any complaints there is no fever or chills no headache or dizziness no chest pain no nausea or vomiting no abdominal pain no diarrhea no blood in the stools no burning with urination no frequency or urgency no hematuria On 02/14/2020 patient was seen and examined on the medical floor she is alert and oriented 3 in no distress she reports improvement in her cough and shortness of breath otherwise she denies any complaints there is no fever or chills no headache or dizziness no chest pain no nausea or vomiting no abdominal pain no diarrhea no blood in the stools no burning with urination no frequency or urgency no hematuria Objective - Vital Signs Vital signs: Vital Signs Temp 98.4 F 02/14/20 13:43 Pulse 74 02/14/20 13:43 Resp 18 02/14/20 13:43 BP 133/71 02/14/20 13:43 Pulse Ox 92 L 02/14/20 14:01 Intake & Output 02/13/20 02/14/20 02/14/20 18:59 06:59 18:59 Intake Total 650 Balance 650 Intake: Oral 650 Other: Voiding Method Toilet # Voids 3 1 1 - Exam In general patient is alert and oriented 3 in no distress HEENT head normocephalic and atraumatic Neck is supple no JVD no goiter no lymphadenopathy Chest exam reveals a scattered crackles bilaterally no wheezing Cardiac exam reveals regular heart sounds no murmurs Abdomen is soft nontender no organomegaly was normal bowel sounds Extremity exam reveals no edema no cyanosis or clubbing Neurological examination reveals no gross focal deficit - Labs CBC & Chem 7: 02/14/20 05:33 02/14/20 05:33 Labs: Abnormal Lab Results - Last 24 Hours (Table) 02/13/20 02/13/20 02/14/20 Range/Units 17:09 20:51 05:33 Hgb 11.2 L (11.4-16.0) gm/dL Lymphocytes # 0.6 L (1.0-4.8) k/uL D-Dimer (<0.60) mg/L FEU Creatinine (0.6-1.5) mg/dL BUN/Creatinine Ratio (12.00-20.00) Ratio POC Glucose (mg/dL) 205 H 114 H (75-99) mg/dL Ferritin (10.0-291.0) ng/mL Lactate Dehydrogenase (120-246) U/L C-Reactive Protein (0.0-0.8) mg/dL Total Protein (6.2-8.2) g/dL Albumin (3.80-4.90) g/dL 02/14/20 02/14/20 02/14/20 Range/Units 05:33 05:33 06:57 Hgb (11.4-16.0) gm/dL Lymphocytes # (1.0-4.8) k/uL D-Dimer 1.12 H (<0.60) mg/L FEU Creatinine 0.5 L (0.6-1.5) mg/dL BUN/Creatinine Ratio 40.00 H (12.00-20.00) Ratio POC Glucose (mg/dL) 73 L (75-99) mg/dL Ferritin 310.6 H (10.0-291.0) ng/mL Lactate Dehydrogenase 316 H (120-246) U/L C-Reactive Protein 6.2 H (0.0-0.8) mg/dL Total Protein 5.4 L (6.2-8.2) g/dL Albumin 3.40 L (3.80-4.90) g/dL 02/14/20 02/14/20 Range/Units 11:34 16:23 Hgb (11.4-16.0) gm/dL Lymphocytes # (1.0-4.8) k/uL D-Dimer (<0.60) mg/L FEU Creatinine (0.6-1.5) mg/dL BUN/Creatinine Ratio (12.00-20.00) Ratio POC Glucose (mg/dL) 105 H 191 H (75-99) mg/dL Ferritin (10.0-291.0) ng/mL Lactate Dehydrogenase (120-246) U/L C-Reactive Protein (0.0-0.8) mg/dL Total Protein (6.2-8.2) g/dL Albumin (3.80-4.90) g/dL Microbiology - Last 24 Hours (Table) 02/09/20 16:24 Blood Culture - Preliminary Blood No Growth after 96 hours Assessment and Plan Plan: 1. Bibasilar infiltrate compatible was pneumonia 2. Positive Covid 19 testing on 02/03/2020 maintained on Remdesivir 3. Underlying history of mqx-wvipgoy-zcfkvbpsk diabetes mellitus 4. Underlying history of hypertension 5. Underlying history of hyperlipidemia At this time patient is admitted to medical floor she was started on oxygen supplements IV dexamethasone IV antibiotics Pulmonary consultation is requested Will follow closely
[2020-02-14] MEDS: MELATONIN 5 MG TABLET PO SCH (20:46)
[2020-02-14] MEDS: PRAVASTATIN SODIUM 40 MG TAB PO SCH (20:46)
[2020-02-14] MEDS: LATANOPROST 0.005% OPHTH DROPS 2.5 ML BTL RIGHT EYE SCH (20:47)
[2020-02-14 20:50] LABS: Glucose,Whole Blood 121 mg/dL (75-99)
[2020-02-15 07:04] LABS: Glucose,Whole Blood 82 mg/dL (75-99)
[2020-02-15] MEDS: CHOLECALCIFEROL 1,000 UNIT TAB PO SCH (08:07)
[2020-02-15] MEDS: ASCORBIC ACID 500 MG TAB PO SCH (08:07)
[2020-02-15] MEDS: FAMOTIDINE 20 MG TAB PO SCH ×2 (08:07→20:47)
[2020-02-15] MEDS: metFORMIN 500 MG TAB PO SCH ×2 (08:07→17:15)
[2020-02-15] MEDS: ASPIRIN 81 MG PO SCH (08:07)
[2020-02-15] MEDS: FLUoxetine HCL 20 MG CAP PO SCH (08:07)
[2020-02-15] MEDS: CALCIUM CARB-VIT D 500MG-200UN 1 EACH TAB PO SCH (08:07)
[2020-02-15] MEDS: lisinopriL 20 MG TAB PO SCH (08:07)
[2020-02-15] MEDS: cloNIDine HCL 0.1 MG TAB PO SCH ×2 (08:07→20:47)
[2020-02-15] MEDS: ENOXAPARIN 40 MG/0.4 ML SYRINGE SQ SCH (08:07)
[2020-02-15] MEDS: ZINC SULFATE 220 MG CAP PO SCH (08:08)
[2020-02-15] MEDS: dexAMETHasone 2 MG TAB PO SCH (08:08)
[2020-02-15 11:33] LABS: Glucose,Whole Blood 100 mg/dL (75-99)
--- NOTE | 2020-02-15 15:17 | P.PN ---
Subjective Progress Note Date: 02/15/20 Principal diagnosis: COVID 19 This is a very pleasant 69-year-old female patient who follows with Dr. Bosch as her primary care provider. She has a history of diabetes mellitus, gastroesophageal reflux disease, hyperlipidemia, hypertension, chronic obstructive pulmonary disease, depression. Approximately 1 week ago she developed symptoms of increased shortness of breath, cough, fatigue and weakness. She was tested for COVID 19 at her primary care provider's office on 02/04/2020 and was found to be positive. Her was positive as well. Yesterday she presented to the emergency room with worsening symptoms. Mainly that of shortness of breath, sinus congestion, fatigue and weakness. We'll had some altered mental status with hallucinations the night prior. She was hypoxemic with the lowest O2 saturation recorded at 89%. T-max of 101.7. Chest x-ray did reveal bilateral lower lobe pneumonia. She is seen today in consultation on the regular medical floor. She is currently resting in bed. She has a congested and still feeling weak. Still some shortness of breath. She is maintaining O2 saturation low 90s on 3 L/m per nasal cannula. Currently afebrile. Hemodynamically stable. White count 8.9. Hemoglobin 12.1. Lymphocytes 0.4. D-dimer 0.72. Sodium 131. Potassium 4.5. Creatinine 0.7. Ferritin 535. LDH 815. C-reactive protein 81.1. Pro-calcitonin 0.07. She will be initiated on Remdesivir, Lovenox, zinc, vitamin C, vitamin D, Pepcid melatonin. On 02/11/2020 patient seen in follow-up on general medical surgical floor, she is feeling better today, she is sitting up in a chair, she was started on Remdesivir yesterday, today is her second treatment commenced on 3 L of oxygen pulse ox 94%, hemodynamically stable, low-grade fever today with a temp of 99.4F. His lab work has been reviewed, show low blood cell count of 8.4, hemog lobin is 12.1, lymphopenia continues with lymphocytic, 0.2. Inflammatory markers are pending. Patient continues on Decadron, Protonix, which we will switch to Pepcid, prophylactic doses of Lovenox, and zinc supplement. No Nausea vomiting or diarrhea. On 02/14/2020 patient seen in follow-up on [facility] medical surgical floor, is awake and alert, she is currently on 4 L of oxygen pulse ox is 95%, she has been afebrile over the last couple of days, breathing is nonlabored, patient does have exertional dyspnea, no chest discomfort, no nausea vomiting diarrhea, yesterday's chest x-ray shows increasing left basilar pneumonia. Patient is on day 4 of Remdesivir, she is on oral Decadron, LDH and CRP have significantly improved since admission. D-dimer is 1.12. Patient is on 40 daily of Lovenox. No acute events overnight. Cultures have revealed no growth. On 02/15/2020 patient seen in follow-up on medical surgical floor, she completed her Remdesivir, continues on oral Decadron, she is feeling better, remains on supplemental oxygen, currently on 4 L of oxygen with pulse ox of 92%, she does have exertional dyspnea, but no acute distress, she's been afebrile. No labs today, no acute events overnight. We'll obtain follow-up chest x-ray tomorrow, blood cultures have been reviewed and remain negative Objective - Vital Signs Vital signs: Vital Signs Temp 97.9 F 02/15/20 07:00 Pulse 61 02/15/20 07:00 Resp 22 02/15/20 07:00 BP 133/73 02/15/20 07:00 Pulse Ox 92 L 02/15/20 07:00 Intake & Output 02/14/20 02/15/20 02/15/20 18:59 06:59 18:59 Intake Total 1250 Balance 1250 Intake: Oral 1250 Other: Voiding Method Toilet Toilet # Voids 1 3 1 # Bowel Movements 1 - Exam GENERAL EXAM: Alert, very pleasant, 69-year-old white female, sitting up in a chair, creatinine 4 L of oxygen, pulse ox of 95%, comfortable in no apparent distress. HEAD: Normocephalic/atraumatic. EYES: Normal reaction of pupils, equal size. Conjunctiva pink, sclera white. NOSE: Clear with pink turbinates. THROAT: No erythema or exudates. NECK: No masses, no JVD, no thyroid enlargement, no adenopathy. CHEST: No chest wall deformity. Symmetrical expansion. LUNGS: Equal air entry with no crackles, wheeze, rhonchi or dullness. CVS: Regular rate and rhythm, normal S1 and S2, no gallops, no murmurs, no rubs ABDOMEN: Soft, nontender. No hepatosplenomegaly, normal bowel sounds, no guarding or rigidity. EXTREMITIES: No clubbing, no edema, no cyanosis, 2+ pulses and upper and lower extremities. MUSCULOSKELETAL: Muscle strength and tone normal. SPINE: No scoliosis or deformity SKIN: No rashes CENTRAL NERVOUS SYSTEM: Alert and oriented -3. No focal deficits, tone is normal in all 4 extremities. PSYCHIATRIC: Alert and oriented -3. Appropriate affect. Intact judgment and insight. - Labs CBC & Chem 7: 02/14/20 05:33 02/14/20 05:33 Labs: Abnormal Lab Results - Last 24 Hours (Table) 02/14/20 02/14/20 02/15/20 Range/Units 16:23 20:48 11:32 POC Glucose (mg/dL) 191 H 121 H 100 H (75-99) mg/dL Microbiology - Last 24 Hours (Table) 02/09/20 16:24 Blood Culture - Preliminary Blood No Growth after 120 hours Assessment and Plan Plan: Assessment: 1 Acute CoVID 19 pneumonia, completed Remdesivir 2 Acute hypoxemic respiratory failure secondary to above 3 Febrile illness secondary to above, improved 4 Diabetes mellitus, type II 5 Hypertension 6 Hyperlipidemia 7 History of chronic tobacco dependence 8 History of depression Plan: Continue current medical treatment, patient is improving, increase activity as tolerated, wean FiO2, will obtain inflammatory markers, follow-up chest x-ray in the morning if remains stable, may consider discharge home possibly in the next 24 hours. I performed a history & physical examination of the patient and discussed their management with my nurse practitioner, Kimber Gross. I reviewed the nurse practitioner's note and agree with the documented findings and plan of care. Lung sounds are positive for diminished breath sounds. The findings and the impression was discussed with the patient. I attest to the documentation by the nurse practitioner. Time with Patient: Less than 30
[2020-02-15 16:58] LABS: Glucose,Whole Blood 170 mg/dL (75-99)
--- NOTE | 2020-02-15 17:58 | P.PN ---
Subjective Progress Note Date: 02/15/20 Tereza Greene, he is a 69-year-old female well known to my practice who presented to his office with her on , 02/03/2020 complaining of cough and stating that they were exposed to a relative who was positive for Covid 19, Covid 19 testing was done in the office at that time and they were given a course of Zithromax and a course of prednisone, testing came back positive for Covid 19 for both patient and her patient was initially stable however she developed worsening cough and worsening shortness of breath, she was told to go to emergency room. Patient was evaluated in the emergency room, vital examination on presentation revealed a temperature of 99.5 pulse 65 respiration 18 blood pressure 131/50 pulse ox 91% on room air white blood count was 9.7 sodium 127 BUN 26 creatinine 0.75 chest x-ray revealed evidence of by basilar infiltrates patient was admitted to medical floor she was started on IV dexamethasone and IV Rocephin and Zithromax pulmonary consultation was re quested. Patient has a known history of hypertension, hyperlipidemia, and kis-zkgzbkd-jicrythqj diabetes mellitus On review of systems patient is complaining of fatigue and generalized weakness she is complaining of fever and cough and shortness of breath with any activity otherwise she denies any complaints, there is no headache or dizziness no chest pain no palpitation no nausea or vomiting no abdominal pain no diarrhea no blood in the stools no burning with urination no frequency or urgency no hematuria On 02/11/2020 patient was seen and examined on the medical floor she is alert and oriented 3 in no apparent distress, she is maintained on oxygen via nasal cannula she is still complaining of cough and shortness of breath, otherwise she denies any complaints there is no fever or chills no headache or dizziness no chest pain no palpitation no nausea or vomiting no abdominal pain no diarrhea no blood in the stools no burning with urination no frequency or urgency and no immature he On 02/12/2020 patient was seen and examined on the medical floor she is still complaining of cough and shortness of breath, otherwise she denies any complaints there is no fever or chills no headache or dizziness no chest pain no shortness of breath no cough no nausea or vomiting no abdominal pain no diarrhea no blood in the stools no burning with urination no frequency or urgency no hematuria. On 02/13/2020 patient was seen and examined on the medical floor she is complaining of cough and shortness of breath otherwise she denies any complaints there is no fever or chills no headache or dizziness no chest pain no nausea or vomiting no abdominal pain no diarrhea no blood in the stools no burning with urination no frequency or urgency no hematuria On 02/14/2020 patient was seen and examined on the medical floor she is alert and oriented 3 in no distress she reports improvement in her cough and shortness of breath otherwise she denies any complaints there is no fever or chills no headache or dizziness no chest pain no nausea or vomiting no abdominal pain no diarrhea no blood in the stools no burning with urination no frequency or urgency no hematuria On 02/15/2020 patient was seen and examined on the medical floor she is feeling better she is sitting up in a chair there is no fever or chills no headache or dizziness she has occasional cough and shortness of breath with activity otherwise she denies any complaints there is no chest pain no nausea or vomiting no abdominal pain no diarrhea no blood in the stools no burning with urination no frequency or urgency and no hematuria Objective - Vital Signs Vital signs: Vital Signs Temp 97.4 F L 02/15/20 15:00 Pulse 77 02/15/20 15:00 Resp 22 02/15/20 15:00 BP 157/70 02/15/20 15:00 Pulse Ox 96 02/15/20 15:00 Intake & Output 02/14/20 02/15/20 02/15/20 18:59 06:59 18:59 Intake Total 1250 Balance 1250 Intake: Oral 1250 Other: Voiding Method Toilet Toilet # Voids 1 3 1 # Bowel Movements 1 - Exam In general patient is alert and oriented 3 in no distress HEENT head normocephalic and atraumatic Neck is supple no JVD no goiter no lymphadenopathy Chest exam reveals a scattered crackles bilaterally no wheezing Cardiac exam reveals regular heart sounds no murmurs Abdomen is soft nontender no organomegaly was normal bowel sounds Extremity exam reveals no edema no cyanosis or clubbing Neurological examination reveals no gross focal deficit - Labs CBC & Chem 7: 02/14/20 05:33 02/14/20 05:33 Labs: Abnormal Lab Results - Last 24 Hours (Table) 02/14/20 02/15/20 02/15/20 Range/Units 20:48 11:32 16:50 POC Glucose (mg/dL) 121 H 100 H 170 H (75-99) mg/dL Microbiology - Last 24 Hours (Table) 02/09/20 16:24 Blood Culture - Preliminary Blood No Growth after 120 hours Assessment and Plan Plan: 1. Bibasilar infiltrate compatible was pneumonia 2. Positive Covid 19 testing on 02/03/2020 maintained on Remdesivir 3. Underlying history of uma-kddnuie-wpjyakewb diabetes mellitus 4. Underlying history of hypertension 5. Underlying history of hyperlipidemia At this time patient is admitted to medical floor she was started on oxygen supplements IV dexamethasone IV antibiotics Pulmonary consultation is requested Will follow closely
[2020-02-15] MEDS: PRAVASTATIN SODIUM 40 MG TAB PO SCH (20:48)
[2020-02-15] MEDS: LATANOPROST 0.005% OPHTH DROPS 2.5 ML BTL RIGHT EYE SCH (20:48)
[2020-02-15 21:07] LABS: Glucose,Whole Blood 116 mg/dL (75-99)
[2020-02-15] MEDS: MELATONIN 5 MG TABLET PO SCH (22:35)
[2020-02-16 06:27] LABS: Basophils % (A) 0 %; Eosinophils # (A) 0.1 k/uL (0-0.7); Eosinophils % (A) 1 %; HCT 37.1 % (34.0-46.0); HGB 11.9 gm/dL (11.4-16.0); Lymphocytes # (A) 0.7 k/uL (1.0-4.8); Lymphocytes % (A) 7 %; MCH 29.3 pg (25.0-35.0); MCHC 32.1 g/dL (31.0-37.0); MCV 91.4 fL (80.0-100.0); Mean Platelet Volume 6.7; Monocytes # (A) 0.5 k/uL (0-1.0); Monocytes % (A) 5 %; Neutrophils # (A) 8.3 k/uL (1.3-7.7); Neutrophils % (A) 85 %; Platelet Count 409 k/uL (150-450); RBC 4.06 m/uL (3.80-5.40); RDW 13.3 % (11.5-15.5); WBC 9.7 k/uL (3.8-10.6)
[2020-02-16 06:36] LABS: D-Dimer 0.88 mg/L FEU (<0.60)
[2020-02-16 07:16] LABS: Glucose,Whole Blood 84 mg/dL (75-99)
--- NOTE | 2020-02-16 07:35 | XR ---
EXAMINATION TYPE: XR chest 1V portable DATE OF EXAM: 02/16/2020 COMPARISON: 02/13/2020 HISTORY: Cough TECHNIQUE: Single frontal view of the chest is obtained. FINDINGS: Bilateral airspace disease stable. Heart size stable. No pneumothorax. Chronic rib deformi ties are seen. No interval change. IMPRESSION: Correlate for multifocal pneumonia
[2020-02-16] MEDS: ASCORBIC ACID 500 MG TAB PO SCH (08:05)
[2020-02-16] MEDS: ASPIRIN 81 MG PO SCH (08:05)
[2020-02-16] MEDS: cloNIDine HCL 0.1 MG TAB PO SCH ×2 (08:05→20:43)
[2020-02-16] MEDS: dexAMETHasone 2 MG TAB PO SCH (08:05)
[2020-02-16] MEDS: metFORMIN 500 MG TAB PO SCH ×2 (08:05→17:27)
[2020-02-16] MEDS: FLUoxetine HCL 20 MG CAP PO SCH (08:05)
[2020-02-16] MEDS: ZINC SULFATE 220 MG CAP PO SCH (08:05)
[2020-02-16] MEDS: CHOLECALCIFEROL 1,000 UNIT TAB PO SCH (08:05)
[2020-02-16] MEDS: lisinopriL 20 MG TAB PO SCH (08:05)
[2020-02-16] MEDS: FAMOTIDINE 20 MG TAB PO SCH ×2 (08:05→20:43)
[2020-02-16] MEDS: CALCIUM CARB-VIT D 500MG-200UN 1 EACH TAB PO SCH (08:05)
[2020-02-16] MEDS: ENOXAPARIN 40 MG/0.4 ML SYRINGE SQ SCH (08:06)
[2020-02-16 10:07] LABS: Albumin 3.5 g/dL (3.80-4.90); Albumin/Globulin Ratio 1.75 (1.60-3.17); Anion Gap 7.2 mmol/L (4.00-12.00); BUN/Creat Ratio 36.67 Ratio (12.00-20.00); Calcium 9.3 mg/dL (8.7-10.3); Carbon Dioxide 31.8 mmol/L (21.6-31.8); Non-African American GFR(CKD) 92.4 (60.0-200.0); Potassium 4.6 mmol/L (3.5-5.5); Total Bilirubin 0.4 mg/dL (0.3-1.2); Total Protein 5.5 g/dL (6.2-8.2)
[2020-02-16 11:43] LABS: Glucose,Whole Blood 151 mg/dL (75-99)
--- NOTE | 2020-02-16 12:17 | P.PN ---
Subjective Progress Note Date: 02/16/20 Principal diagnosis: CoVid 19 pneumonitis This is a very pleasant 69-year-old female patient who follows with Dr. Bosch as her primary care provider. She has a history of diabetes mellitus, gastroesophageal reflux disease, hyperlipidemia, hypertension, chronic obstructive pulmonary disease, depression. Approximately 1 week ago she developed symptoms of increased shortness of breath, cough, fatigue and weakness. She was tested for COVID 19 at her primary care provider's office on 02/04/2020 and was found to be positive. Her was positive as well. Yesterday she presented to the emergency room with worsening symptoms. Mainly that of shortness of breath, sinus congestion, fatigue and weakness. We'll had some altered mental status with hallucinations the night prior. She was hypoxemic with the lowest O2 saturation recorded at 89%. T-max of 101.7. Chest x-ray did reveal bilateral lower lobe pneumonia. She is seen today in consultation on the regular medical floor. She is currently resting in bed. She has a congested and still feeling weak. Still some shortness of breath. She is maintaining O2 saturation low 90s on 3 L/m per nasal cannula. Currently afebrile. Hemodynamically stable. White count 8.9. Hemoglobin 12.1. Lymphocytes 0.4. D-dimer 0.72. Sodium 131. Potassium 4.5. Creatinine 0.7. Ferritin 535. LDH 815. C-reactive protein 81.1. Pro-calcitonin 0.07. She will be initiated on Remdesivir, Lovenox, zinc, vitamin C, vitamin D, Pepcid melatonin. On 02/11/2020 patient seen in follow-up on general medical surgical floor, she is feeling better today, she is sitting up in a chair, she was started on Remdesivir yesterday, today is her second treatment commenced on 3 L of oxygen pulse ox 94%, hemodynamically stable, low-grade fever today with a temp of 99.4F. His lab work has been reviewed, show low blood cell count of 8.4, hemoglobin is 12.1, lymphopenia continues with lymphocytic, 0.2. Inflammatory markers are pending. Patient continues on Decadron, Protonix, which we will switch to Pepcid, prophylactic doses of Lovenox, and zinc supplement. No Nausea vomiting or diarrhea. The patient is seen today 02/12/2020 in follow-up on the regular medical floor. She is a bit more less short of breath today. Less fatigued. Feeling a bit better. She is maintaining O2 saturations in the 90s on 4 L/m per nasal alfredo van. Afebrile. Hemodynamically stable. The cultures reveal no growth. White count 6.6. Hemoglobin 12.1. Lymphocytes 0.4. D-dimer 1.02. Sodium 136. Potassium 4.5. Creatinine 0.49. LDH 1011, C-reactive protein 156. This is day 3 of Remdesivir. She is maintained on melatonin, zinc, vitamin C, vitamin D, Lovenox, Pepcid. The patient is seen today 02/13/2020 in follow-up on the regular medical floor. She is awake and alert in no acute distress. Currently sitting up in a chair at the bedside. She did require increased to 4 L/m per nasal cannula of oxygen and has since been titrated back down to 2 L. She is dyspneic with minimal exertion. She remains afebrile. Blood culture reveals no growth. White count 11.1. Hemoglobin 12.6. Lymphocytes 0.9. D-dimer 1.13. Sodium 141. Potassium 5.1. Creatinine 0.6. C-reactive protein 7.4. LDH 375. She is on day #4 of Remdesivir. She is maintained on melatonin, zinc, vitamin C, vitamin D, Lovenox, Pepcid. Chest x-ray continues to show basilar infiltrates, left greater than right On 02/14/2020 patient seen in follow-up on [facility] medical surgical floor, is awake and alert, she is currently on 4 L of oxygen pulse ox is 95%, she has been afebrile over the last couple of days, breathing is nonlabored, patient does have exertional dyspnea, no chest discomfort, no nausea vomiting diarrhea, yesterday's chest x-ray shows increasing left basilar pneumonia. Patient is on day 4 of Remdesivir, she is on oral Decadron, LDH and CRP have significantly improved since admission. D-dimer is 1.12. Patient is on 40 daily of Lovenox. No acute events overnight. Cultures have revealed no growth. On 02/15/2020 patient seen in follow-up on medical surgical floor, she completed her Remdesivir, continues on oral Decadron, she is feeling better, remains on supplemental oxygen, currently on 4 L of oxygen with pulse ox of 92%, she does have exertional dyspnea, but no acute distress, she's been afebrile. No labs today, no acute events overnight. We'll obtain follow-up chest x-ray tomorrow, blood cultures have been reviewed and remain negative The patient is seen today 02/21/2020 in follow-up on the regular medical floor. She is awake and alert in no acute distress. Continues to maintain O2 saturations in the 90s on 4 L/m per nasal cannula. She's afebrile. Blood culture revealed no growth. White count 9.7. Hemoglobin 11.9. Lymphocytes 0.7. D-dimer 0.88. Sodium 139. Potassium 4.6. Creatinine 0.6. LDH 267. C-reactive protein 3.0. She has completed her course of Remdesivir. Continued on Pepcid, vitamin D, vitamin C, zinc, dexamethasone, melatonin. X-ray continued to show bilateral airspace disease which is stable compared to previous on 02/13/2020. Objective - Vital Signs Vital signs: Vital Signs Temp 97.9 F 02/16/20 07:00 Pulse 66 02/16/20 08:00 Resp 18 02/16/20 08:00 BP 172/68 02/16/20 07:00 Pulse Ox 91 L 02/16/20 07:00 Intake & Output 02/15/20 02/16/20 02/16/20 18:59 06:59 18:59 Other: Voiding Method Toilet Toilet Toilet # Voids 1 1 - Exam GENERAL EXAM: Alert, very pleasant, 69-year-old female patient, sitting up in a chair, currently on 4 L of oxygen, pulse ox of 91%, comfortable in no apparent distress. HEAD: Normocephalic/atraumatic. EYES: Normal reaction of pupils, equal size. Conjunctiva pink, sclera white. NOSE: Clear with pink turbinates. THROAT: No erythema or exudates. NECK: No masses, no JVD, no thyroid enlargement, no adenopathy. CHEST: No chest wall deformity. Symmetrical expansion. LUNGS: Equal air entry with few scattered rhonchi. CVS: Regular rate and rhythm, normal S1 and S2, no gallops, no murmurs, no rubs ABDOMEN: Soft, nontender. No hepatosplenomegaly, normal bowel sounds, no guarding or rigidity. EXTREMITIES: No clubbing, no edema, no cyanosis, 2+ pulses and upper and lower extremities. MUSCULOSKELETAL: Muscle strength and tone normal. SPINE: No scoliosis or deformity SKIN: No rashes CENTRAL NERVOUS SYSTEM: No focal deficits, tone is normal in all 4 extremities. PSYCHIATRIC: Alert and oriented -3. Appropriate affect. Intact judgment and insight. - Labs CBC & Chem 7: 02/16/20 06:07 02/16/20 06:07 Labs: Abnormal Lab Results - Last 24 Hours (Table) 02/15/20 02/15/20 02/16/20 Range/Units 16:50 21:06 06:07 Neutrophils # (1.3-7.7) k/uL Lymphocytes # (1.0-4.8) k/uL D-Dimer 0.88 H (<0.60) mg/L FEU BUN/Creatinine Ratio (12.00-20.00) Ratio POC Glucose (mg/dL) 170 H 116 H (75-99) mg/dL Lactate Dehydrogenase (120-246) U/L C-Reactive Protein (0.0-0.8) mg/dL Total Protein (6.2-8.2) g/dL Albumin (3.80-4.90) g/dL 02/16/20 02/16/20 02/16/20 Range/Units 06:07 06:07 11:41 Neutrophils # 8.3 H (1.3-7.7) k/uL Lymphocytes # 0.7 L (1.0-4.8) k/uL D-Dimer (<0.60) mg/L FEU BUN/Creatinine Ratio 36.67 H (12.00-20.00) Ratio POC Glucose (mg/dL) 151 H (75-99) mg/dL Lactate Dehydrogenase 267 H (120-246) U/L C-Reactive Protein 3.0 H (0.0-0.8) mg/dL Total Protein 5.5 L (6.2-8.2) g/dL Albumin 3.50 L (3.80-4.90) g/dL Microbiology - Last 24 Hours (Table) 02/09/20 16:24 Blood Culture - Final Blood No Growth after 144 hours Assessment and Plan Assessment: 1 Acute CoVID 19 pneumonia 2 Acute hypoxemic respiratory failure secondary to above 3 Febrile illness secondary to above, recovered 4 Diabetes mellitus, type II 5 Hypertension 6 Hyperlipidemia 7 History of chronic tobacco dependence 8 History of depression Plan: The patient was seen and evaluated by Dr. Sen Chest x-ray and labs reviewed Completed Remdesivir Continue dexamethasone 6 mg daily 10 days Continue Pepcid, vitamin C, vitamin D, melatonin, zinc Titrate down FiO2 as tolerated Increase her activity as tolerated Continue isolation precautions We'll continue to follow and make further recommendations based on her clinical status I, the cosigning physician, performed a history & physical examination of the patient. Lungs sounds with bilateral scattered rhonchi. Maintaining good O2 saturations in the 90s on 4 L/m per nasal cannula. I discussed the assessment and plan of care with my nurse practitioner, Shirley Colbert. I attest to the above consultation as dictated by her.
[2020-02-16 14:38] VITALS: BMI 34.9
[2020-02-16 16:29] LABS: Glucose,Whole Blood 165 mg/dL (75-99)
--- NOTE | 2020-02-16 16:38 | P.PN ---
Subjective Progress Note Date: 02/16/20 Tereza Greene, he is a 69-year-old female well known to my practice who presented to his office with her on , 02/03/2020 complaining of cough and stating that they were exposed to a relative who was positive for Covid 19, Covid 19 testing was done in the office at that time and they were given a course of Zithromax and a course of prednisone, testing came back positive for Covid 19 for both patient and her patient was initially stable however she developed worsening cough and worsening shortness of breath, she was told to go to emergency room. Patient was evaluated in the emergency room, vital examination on presentation revealed a temperature of 99.5 pulse 65 respiration 18 blood pressure 131/50 pulse ox 91% on room air white blood count was 9.7 sodium 127 BUN 26 creatinine 0.75 chest x-ray revealed evidence of by basilar infiltrates patient was admitted to medical floor she was started on IV dexamethasone and IV Rocephin and Zithromax pulmonary consultation was re quested. Patient has a known history of hypertension, hyperlipidemia, and [id number] diabetes mellitus On review of systems patient is complaining of fatigue and generalized weakness she is complaining of fever and cough and shortness of breath with any activity otherwise she denies any complaints, there is no headache or dizziness no chest pain no palpitation no nausea or vomiting no abdominal pain no diarrhea no blood in the stools no burning with urination no frequency or urgency no hematuria On 02/11/2020 patient was seen and examined on the medical floor she is alert and oriented 3 in no apparent distress, she is maintained on oxygen via nasal cannula she is still complaining of cough and shortness of breath, otherwise she denies any complaints there is no fever or chills no headache or dizziness no chest pain no palpitation no nausea or vomiting no abdominal pain no diarrhea no blood in the stools no burning with urination no frequency or urgency and no immature he On 02/12/2020 patient was seen and examined on the medical floor she is still complaining of cough and shortness of breath, otherwise she denies any complaints there is no fever or chills no headache or dizziness no chest pain no shortness of breath no cough no nausea or vomiting no abdominal pain no diarrhea no blood in the stools no burning with urination no frequency or urgency no hematuria. On 02/13/2020 patient was seen and examined on the medical floor she is complaining of cough and shortness of breath otherwise she denies any complaints there is no fever or chills no headache or dizziness no chest pain no nausea or vomiting no abdominal pain no diarrhea no blood in the stools no burning with urination no frequency or urgency no hematuria On 02/14/2020 patient was seen and examined on the medical floor she is alert and oriented 3 in no distress she reports improvement in her cough and shortness of breath otherwise she denies any complaints there is no fever or chills no headache or dizziness no chest pain no nausea or vomiting no abdominal pain no diarrhea no blood in the stools no burning with urination no frequency or urgency no hematuria On 02/15/2020 patient was seen and examined on the medical floor she is feeling better she is sitting up in a chair there is no fever or chills no headache or dizziness she has occasional cough and shortness of breath with activity otherwise she denies any complaints there is no chest pain no nausea or vomiting no abdominal pain no diarrhea no blood in the stools no burning with urination no frequency or urgency and no hematuria. On 02/16/2020 patient was seen and examined on the medical floor she is alert and oriented in no distress she is sitting up in a chair, she completed course of Remdesivir she is tolerating her meals well she is still having occasional cough and shortness of breath with activity otherwise she denies any complaints there is no fever or chills no headache or dizziness no chest pain no shortness of breath no cough no nausea or vomiting no abdominal pain no diarrhea no blood in the stools no burning with urination no frequency or urgency no hematuria Objective - Vital Signs Vital signs: Vital Signs Temp 97.9 F 02/16/20 07:00 Pulse 66 02/16/20 07:00 Resp 18 02/16/20 07:00 BP 172/68 02/16/20 07:00 Pulse Ox 91 L 02/16/20 07:00 Intake & Output 02/15/20 02/16/20 02/16/20 18:59 06:59 18:59 Other: Voiding Method Toilet Toilet # Voids 1 1 - Exam In general patient is alert and oriented 3 in no distress HEENT head normocephalic and atraumatic Neck is supple no JVD no goiter no lymphadenopathy Chest exam reveals a scattered crackles bilaterally no wheezing Cardiac exam reveals regular heart sounds no murmurs Abdomen is soft nontender no organomegaly was normal bowel sounds Extremity exam reveals no edema no cyanosis or clubbing Neurological examination reveals no gross focal deficit - Labs CBC & Chem 7: 02/16/20 06:07 02/16/20 06:07 Labs: Abnormal Lab Results - Last 24 Hours (Table) 02/15/20 02/15/20 02/15/20 Range/Units 11:32 16:50 21:06 Neutrophils # (1.3-7.7) k/uL Lymphocytes # (1.0-4.8) k/uL D-Dimer (<0.60) mg/L FEU POC Glucose (mg/dL) 100 H 170 H 116 H (75-99) mg/dL 02/16/20 02/16/20 Range/Units 06:07 06:07 Neutrophils # 8.3 H (1.3-7.7) k/uL Lymphocytes # 0.7 L (1.0-4.8) k/uL D-Dimer 0.88 H (<0.60) mg/L FEU POC Glucose (mg/dL) (75-99) mg/dL Microbiology - Last 24 Hours (Table) 02/09/20 16:24 Blood Culture - Final Blood No Growth after 144 hours Assessment and Plan Plan: 1. Bibasilar infiltrate compatible was pneumonia 2. Positive Covid 19 testing on 02/03/2020 maintained on Remdesivir 3. Underlying history of [id number] diabetes mellitus 4. Underlying history of hypertension 5. Underlying history of hyperlipidemia At this time patient is admitted to medical floor she was started on oxygen supplements IV dexamethasone IV antibiotics Pulmonary consultation is requested Will follow closely
[2020-02-16 20:15] LABS: Glucose,Whole Blood 223 mg/dL (75-99)
[2020-02-16] MEDS: LATANOPROST 0.005% OPHTH DROPS 2.5 ML BTL RIGHT EYE SCH (20:43)
[2020-02-16] MEDS: MELATONIN 5 MG TABLET PO SCH (20:43)
[2020-02-16] MEDS: PRAVASTATIN SODIUM 40 MG TAB PO SCH (20:44)
[2020-02-17 07:11] LABS: Glucose,Whole Blood 79 mg/dL (75-99)
[2020-02-17] MEDS: dexAMETHasone 2 MG TAB PO SCH (09:24)
[2020-02-17] MEDS: ASPIRIN 81 MG PO SCH (09:24)
[2020-02-17] MEDS: ASCORBIC ACID 500 MG TAB PO SCH (09:24)
[2020-02-17] MEDS: ENOXAPARIN 40 MG/0.4 ML SYRINGE SQ SCH (09:24)
[2020-02-17] MEDS: lisinopriL 20 MG TAB PO SCH (09:25)
[2020-02-17] MEDS: FAMOTIDINE 20 MG TAB PO SCH (09:25)
[2020-02-17] MEDS: metFORMIN 500 MG TAB PO SCH (09:25)
[2020-02-17] MEDS: CALCIUM CARB-VIT D 500MG-200UN 1 EACH TAB PO SCH (09:25)
[2020-02-17] MEDS: CHOLECALCIFEROL 1,000 UNIT TAB PO SCH (09:25)
[2020-02-17] MEDS: cloNIDine HCL 0.1 MG TAB PO SCH (09:25)
[2020-02-17] MEDS: FLUoxetine HCL 20 MG CAP PO SCH (09:25)
[2020-02-17] MEDS: ZINC SULFATE 220 MG CAP PO SCH (09:25)
[2020-02-17 11:09] LABS: Glucose,Whole Blood 98 mg/dL (75-99)
--- NOTE | 2020-02-17 15:12 | P.PN ---
Subjective Progress Note Date: 02/17/20 Principal diagnosis: CoVid 19 pneumonitis This is a very pleasant 69-year-old female patient who follows with Dr. Bosch as her primary care provider. She has a history of diabetes mellitus, gastroesophageal reflux disease, hyperlipidemia, hypertension, chronic obstructive pulmonary disease, depression. Approximately 1 week ago she developed symptoms of increased shortness of breath, cough, fatigue and weakness. She was tested for COVID 19 at her primary care provider's office on 02/04/2020 and was found to be positive. Her was positive as well. Yesterday she presented to the emergency room with worsening symptoms. Mainly that of shortness of breath, sinus congestion, fatigue and weakness. We'll had some altered mental status with hallucinations the night prior. She was hypoxemic with the lowest O2 saturation recorded at 89%. T-max of 101.7. Chest x-ray did reveal bilateral lower lobe pneumonia. She is seen today in consultation on the regular medical floor. She is currently resting in bed. She has a congested and still feeling weak. Still some shortness of breath. She is maintaining O2 saturation low 90s on 3 L/m per nasal cannula. Currently afebrile. Hemodynamically stable. White count 8.9. Hemoglobin 12.1. Lymphocytes 0.4. D-dimer 0.72. Sodium 131. Potassium 4.5. Creatinine 0.7. Ferritin 535. LDH 815. C-reactive protein 81.1. Pro-calcitonin 0.07. She will be initiated on Remdesivir, Lovenox, zinc, vitamin C, vitamin D, Pepcid melatonin. On 02/11/2020 patient seen in follow-up on general medical surgical floor, she is feeling better today, she is sitting up in a chair, she was started on Remdesivir yesterday, today is her second treatment commenced on 3 L of oxygen pulse ox 94%, hemodynamically stable, low-grade fever today with a temp of 99.4F. His lab work has been reviewed, show low blood cell count of 8.4, hemoglobin is 12.1, lymphopenia continues with lymphocytic, 0.2. Inflammatory markers are pending. Patient continues on Decadron, Protonix, which we will switch to Pepcid, prophylactic doses of Lovenox, and zinc supplement. No Nausea vomiting or diarrhea. The patient is seen today 02/12/2020 in follow-up on the regular medical floor. She is a bit more less short of breath today. Less fatigued. Feeling a bit better. She is maintaining O2 saturations in the 90s on 4 L/m per nasal alfredo van. Afebrile. Hemodynamically stable. The cultures reveal no growth. White count 6.6. Hemoglobin 12.1. Lymphocytes 0.4. D-dimer 1.02. Sodium 136. Potassium 4.5. Creatinine 0.49. LDH 1011, C-reactive protein 156. This is day 3 of Remdesivir. She is maintained on melatonin, zinc, vitamin C, vitamin D, Lovenox, Pepcid. The patient is seen today 02/13/2020 in follow-up on the regular medical floor. She is awake and alert in no acute distress. Currently sitting up in a chair at the bedside. She did require increased to 4 L/m per nasal cannula of oxygen and has since been titrated back down to 2 L. She is dyspneic with minimal exertion. She remains afebrile. Blood culture reveals no growth. White count 11.1. Hemoglobin 12.6. Lymphocytes 0.9. D-dimer 1.13. Sodium 141. Potassium 5.1. Creatinine 0.6. C-reactive protein 7.4. LDH 375. She is on day #4 of Remdesivir. She is maintained on melatonin, zinc, vitamin C, vitamin D, Lovenox, Pepcid. Chest x-ray continues to show basilar infiltrates, left greater than right On 02/14/2020 patient seen in follow-up on [facility] medical surgical floor, is awake and alert, she is currently on 4 L of oxygen pulse ox is 95%, she has been afebrile over the last couple of days, breathing is nonlabored, patient does have exertional dyspnea, no chest discomfort, no nausea vomiting diarrhea, yesterday's chest x-ray shows increasing left basilar pneumonia. Patient is on day 4 of Remdesivir, she is on oral Decadron, LDH and CRP have significantly improved since admission. D-dimer is 1.12. Patient is on 40 daily of Lovenox. No acute events overnight. Cultures have revealed no growth. On 02/15/2020 patient seen in follow-up on medical surgical floor, she completed her Remdesivir, continues on oral Decadron, she is feeling better, remains on supplemental oxygen, currently on 4 L of oxygen with pulse ox of 92%, she does have exertional dyspnea, but no acute distress, she's been afebrile. No labs today, no acute events overnight. We'll obtain follow-up chest x-ray tomorrow, blood cultures have been reviewed and remain negative The patient is seen today 02/16/2020 in follow-up on the regular medical floor. She is awake and alert in no acute distress. Continues to maintain O2 saturations in the 90s on 4 L/m per nasal cannula. She's afebrile. Blood culture revealed no growth. White count 9.7. Hemoglobin 11.9. Lymphocytes 0.7. D-dimer 0.88. Sodium 139. Potassium 4.6. Creatinine 0.6. LDH 267. C-reactive protein 3.0. She has completed her course of Remdesivir. Continued on Pepcid, vitamin D, vitamin C, zinc, dexamethasone, melatonin. X-ray continued to show bilateral airspace disease which is stable compared to previous on 02/13/2020. The patient is seen today 02/17/2020 in follow-up on the regular medical floor. She is awake and alert in no acute distress. Currently sitting up in a chair at the bedside. He denies any worsening shortness of breath, cough or congestion. He does continue require 2 L/m per nasal cannula to maintain O2 saturation low 90s. She's been afebrile. Hemodynamically stable. She has completed her course of Remdesivir. Blood cultures reveal no growth. Blood glucose 98. She remains on on Pepcid, vitamin D, vitamin C, zinc, dexamethasone, melatonin. She is anxious to go home. Objective - Vital Signs Vital signs: Vital Signs Temp 97.9 F 02/17/20 07:00 Pulse 60 02/17/20 08:00 Resp 16 02/17/20 08:00 BP 122/68 02/17/20 07:00 Pulse Ox 93 L 02/17/20 07:00 Intake & Output 02/16/20 02/17/20 02/17/20 18:59 06:59 18:59 Intake Total 650 300 Balance 650 300 Weight 95.254 kg Intake: Oral 650 300 Other: Voiding Method Toilet Toilet # Voids 2 1 - Exam GENERAL EXAM: Alert, very pleasant, 69-year-old female patient, sitting up in a chair, currently on 2 L of oxygen, pulse ox of 93%, comfortable in no apparent distress. HEAD: Normocephalic/atraumatic. EYES: Normal reaction of pupils, equal size. Conjunctiva pink, sclera white. NOSE: Clear with pink turbinates. THROAT: No erythema or exudates. NECK: No masses, no JVD, no thyroid enlargement, no adenopathy. CHEST: No chest wall deformity. Symmetrical expansion. LUNGS: Equal air entry with few scattered rhonchi. CVS: Regular rate and rhythm, normal S1 and S2, no gallops, no murmurs, no rubs ABDOMEN: Soft, nontender. No hepatosplenomegaly, normal bowel sounds, no guarding or rigidity. EXTREMITIES: No clubbing, no edema, no cyanosis, 2+ pulses and upper and lower extremities. MUSCULOSKELETAL: Muscle strength and tone normal. SPINE: No scoliosis or deformity SKIN: No rashes CENTRAL NERVOUS SYSTEM: No focal deficits, tone is normal in all 4 extremities. PSYCHIATRIC: Alert and oriented -3. Appropriate affect. Intact judgment and insight. - Labs CBC & Chem 7: 02/16/20 06:07 02/16/20 06:07 Labs: Abnormal Lab Results - Last 24 Hours (Table) 02/16/20 02/16/20 Range/Units 16:28 20:13 POC Glucose (mg/dL) 165 H 223 H (75-99) mg/dL Assessment and Plan Assessment: 1 Acute CoVID 19 pneumonia 2 Acute hypoxemic respiratory failure secondary to above 3 Febrile illness secondary to above, recovered 4 Diabetes mellitus, type II 5 Hypertension 6 Hyperlipidemia 7 History of chronic tobacco dependence 8 History of depression Plan: The patient was seen and evaluated by Dr. Sen Cleared for discharge from the pulmonary standpoint Completed Remdesivir Continue dexamethasone 6 mg daily 10 days Assess for home oxygen Follow-up with her PCP I, the cosigning physician, performed a history & physical examination of the patient. Lungs sounds with few bilateral scattered rhonchi. Maintaining good O2 saturations in the 90s on 2 L/m per nasal cannula. I discussed the assessment and plan of care with my nurse practitioner, Shirley Colbert. I attest to the above note as dictated by her.
--- NOTE | 2020-02-17 15:49 | P.DS ---
Providers Date of admission: 02/09/20 18:03 Expected date of discharge: 02/17/20 Attending physician: Katharine Bosch Consults: 02/09/20 18:10 Consult Physician Stat Consulting Provider: Daniel Sweeney Consult Reason/Comments: acute hypoxia, covid pneumonia Do you want consulting provider notified?: Yes Primary care physician: Katharine Danitza [facility] Course: Diagnosis on discharge: 1. Bibasilar infiltrate compatible with pneumonia, final diagnosis bilateral Covid 19 pneumonia 2. Positive Covid 19 testing on 02/03/2020 maintained on Remdesivir 3. Underlying history of cpy-miwazow-waogyvrtw diabetes mellitus 4. Underlying history of hypertension 5. Underlying history of hyperlipidemia 6. Underlying history of depression [facility] Course: Tereza Greene, he is a 69-year-old female well known to my practice who presented to his office with her on , 02/03/2020 complaining of cough and stating that they were exposed to a relative who was positive for Covid 19, Covid 19 testing was done in the office at that time and they were given a course of Zithromax and a course of prednisone, testing came back positive for Covid 19 for both patient and her patient was initially stable however she developed worsening cough and worsening shortness of breath, she was told to go to emergency room. Patient was evaluated in the emergency room, vital examination on presentation revealed a temperature of 99.5 pulse 65 respiration 18 blood pressure 131/50 pulse ox 91% on room air white blood count was 9.7 sodium 127 BUN 26 creatinine 0.75 chest x-ray revealed evidence of by basilar infiltrates patient was admitted to medical floor she was started on IV dexamethasone and IV Rocephin and Zithromax pulmonary consultation was requested. Patient has a known history of hypertension, hyperlipidemia, and rex-ecjvpil-iqlvmvqid diabetes mellitus On review of systems patient is complaining of fatigue and generalized weakness she is complaining of fever and cough and shortness of breath with any activity otherwise she denies any complaints, there is no headache or dizziness no chest pain no palpitation no nausea or vomiting no abdominal pain no diarrhea no blood in the stools no burning with urination no frequency or urgency no hematuria On 02/11/2020 patient was seen and examined on the medical floor she is alert and oriented 3 in no apparent distress, she is maintained on oxygen via nasal cannula she is still complaining of cough and shortness of breath, otherwise she denies any complaints there is no fever or chills no headache or dizziness no chest pain no palpitation no nausea or vomiting no abdominal pain no diarrhea no blood in the stools no burning with urination no frequency or urgency and no immature he On 02/12/2020 patient was seen and examined on the medical floor she is still complaining of cough and shortness of breath, otherwise she denies any complaints there is no fever or chills no headache or dizziness no chest pain no shortness of breath no cough no nausea or vomiting no abdominal pain no diarrhea no blood in the stools no burning with urination no frequency or urgency no hematuria. On 02/13/2020 patient was seen and examined on the medical floor she is complaining of cough and shortness of breath otherwise she denies any complaints there is no fever or chills no headache or dizziness no chest pain no nausea or vomiting no abdominal pain no diarrhea no blood in the stools no burning with urination no frequency or urgency no hematuria On 02/14/2020 patient was seen and examined on the medical floor she is alert and oriented 3 in no distress she reports improvement in her cough and shortness of breath otherwise she denies any complaints there is no fever or chills no headache or dizziness no chest pain no nausea or vomiting no abdominal pain no diarrhea no blood in the stools no burning with urination no frequency or urgency no hematuria On 02/15/2020 patient was seen and examined on the medical floor she is feeling better she is sitting up in a chair there is no fever or chills no headache or dizziness she has occasional cough and shortness of breath with activity otherwise she denies any complaints there is no chest pain no nausea or vomiting no abdominal pain no diarrhea no blood in the stools no burning with urination no frequency or urgency and no hematuria. On 02/16/2020 patient was seen and examined on the medical floor she is alert and oriented in no distress she is sitting up in a chair, she completed course of Remdesivir she is tolerating her meals well she is still having occasional cough and shortness of breath with activity otherwise she denies any complaints there is no fever or chills no headache or dizziness no chest pain no shortness of breath no cough no nausea or vomiting no abdominal pain no diarrhea no blood in the stools no burning with urination no frequency or urgency no hematuria On 02/17/2020 patient was seen and examined on the medical floor she is alert and oriented 3 in no apparent distress she reports improvement in her shortness of breath and cough she completed course of Remdesivir, there is no fever or chills no headache or dizziness no chest pain no palpitation no nausea or vomiting no abdominal pain no diarrhea no blood in the stools no burning with urination no frequency or urgency and no hematuria. Patient was evaluated by pulmonary and was cleared for discharge today at this time will discharge patient to home she would be given 10 day course of dexamethasone 6 mg by mouth daily she will also be given a prescription for Pepcid and melatonin will follow in the office within one week Patient Condition at Discharge: Stable Plan - Discharge Summary Discharge Rx Participant: No New Discharge Prescriptions: New dexAMETHasone [Hexadrol] 6 mg PO DAILY 10 Days #10 tab Melatonin 5 mg PO HS tablet Zinc Sulfate [Orazinc] 220 mg PO DAILY cap Famotidine [Pepcid] 20 mg PO BID tab Ascorbic Acid [Vitamin C] 500 mg PO DAILY tab Continue cloNIDine HCL [Catapres] 0.1 mg PO BID Pravastatin Sodium [Pravachol] 40 mg PO HS Bouse-3 Fatty Acids/Fish Oil [Fish Oil 1,000 mg Softgel] 1 cap PO DAILY lisinopriL [Zestril] 20 mg PO DAILY Cholecalciferol [Vitamin D3 (25 Mcg = 1000 Iu)] 1,000 unit PO DAILY Aspirin [Children's Aspirin] 81 mg PO DAILY Aloe Vera 1 tab PO DAILY metFORMIN HCL [Glucophage] 500 mg PO BID Turmeric Root Extract [Turmeric] 500 mg PO DAILY FLUoxetine HCL [PROzac] 20 mg PO DAILY Vitamin D3/Calcium 1 tab PO DAILY Latanoprost/Pf [Latanoprost 0.005% Eye Drop] 1 drop RIGHT EYE HS [place] 1 tab PO DAILY Discontinued Azithromycin [Zithromax] 500 mg PO DAILY Discharge Medication List Aloe Vera 1 tab PO DAILY 11/05/17 [History] Aspirin [Children's Aspirin] 81 mg PO DAILY 11/05/17 [History] Cholecalciferol [Vitamin D3 (25 Mcg = 1000 Iu)] 1,000 unit PO DAILY 11/05/17 [History] Bouse-3 Fatty Acids/Fish Oil [Fish Oil 1,000 mg Softgel] 1 cap PO DAILY 11/05/17 [History] Pravastatin Sodium [Pravachol] 40 mg PO HS 11/05/17 [History] cloNIDine HCL [Catapres] 0.1 mg PO BID 11/05/17 [History] lisinopriL [Zestril] 20 mg PO DAILY 11/05/17 [History] FLUoxetine HCL [PROzac] 20 mg PO DAILY 01/26/19 [History] Turmeric Root Extract [Turmeric] 500 mg PO DAILY 01/26/19 [History] metFORMIN HCL [Glucophage] 500 mg PO BID 01/26/19 [History] Latanoprost/Pf [Latanoprost 0.005% Eye Drop] 1 drop RIGHT EYE HS 02/09/20 [History] Tart [place] 1 tab PO DAILY 02/09/20 [History] Vitamin D3/Calcium 1 tab PO DAILY 02/09/20 [History] Ascorbic Acid [Vitamin C] 500 mg PO DAILY tab 02/17/20 [Rx] Famotidine [Pepcid] 20 mg PO BID tab 02/17/20 [Rx] Melatonin 5 mg PO HS tablet 02/17/20 [Rx] Zinc Sulfate [Orazinc] 220 mg PO DAILY cap 02/17/20 [Rx] dexAMETHasone [Hexadrol] 6 mg PO DAILY 10 Days #10 tab 02/17/20 [Rx] Follow up Appointment(s)/Referral(s): Katharine Bosch MD [Primary Care Provider] - 1-2 days Activity/Diet/Wound Care/Special Instructions: *[facility] will deliver a portable oxygen tank to the bedside before discharge. The patient needs to call [employer] once home to arrange delivery of the oxygen concentrator: [phone].
[2020-02-17 15:59] VITALS: BP 105/59; PULSE 67; RESP 22; TEMP 98.1
== END 2020-02-17 16:49 | disposition home or self-care (01) | DRG 177 ==
LOC: EC 15:16 → 4SSUR 18:03
PROVIDERS: ADMIT Internal Medicine; ATTEND Internal Medicine
PROC: XW033E5 Introduction of Remdesivir Anti-infective into Peripheral Vein, Percutaneous Approach, New Technology Group 5 (ICD-10-PCS; principal; 2020-02-10)
DX: U07.1 COVID-19 (principal); J12.89 Other viral pneumonia; J96.01 Acute respiratory failure with hypoxia; J44.0 Chronic obstructive pulmonary disease with (acute) lower respiratory infection; E11.9 Type 2 diabetes mellitus without complications; F31.9 Bipolar disorder, unspecified; E78.5 Hyperlipidemia, unspecified; I10 Essential (primary) hypertension; K21.9 Gastro-esophageal reflux disease without esophagitis; D72.810 Lymphocytopenia; Z71.3 Dietary counseling and surveillance; Z79.82 Long term (current) use of aspirin; Z79.899 Other long term (current) drug therapy; Z79.84 Long term (current) use of oral hypoglycemic drugs; Z98.890 Other specified postprocedural states; Z90.710 Acquired absence of both cervix and uterus; Z87.891 Personal history of nicotine dependence; Z88.2 Allergy status to sulfonamides; Z82.49 Family history of ischemic heart disease and other diseases of the circulatory system; Z83.3 Family history of diabetes mellitus; Z80.3 Family history of malignant neoplasm of breast
CPT/HCPCS: 36415; 71045; 80053; 81001; 82728; 83605; 83615; 83735; 84145; 85025; 85379; 85384; 85610; 85730; 86140; 87040; 93005; 94640; 96365; 96372; 99285

== ENCOUNTER → 2020-03-21 | Outpatient (CLI) | payer MEDICARE, OTHER ==
[2020-03-21 13:03] VITALS: BP 117/69; PULSE 87; RESP 20; TEMP 97.8
--- NOTE | 2020-03-21 13:40 | P.HPOB ---
History of Present Illness H&P Date: 03/21/20 Chief Complaint: The patient is here for her routine gynecologic exam and ma mmogram. This is a 77-year-old with an LMP of 1980. The patient is status post vaginal hysterectomy for benign reasons. This patient states her vulvar irritation improved with Kenalog cream. She now uses the cream infrequently as needed. She does occasionally get redness and irritation beneath the breasts, in the groin area creases and beneath her abdominal pannus when there is moisture. She has typically used I drying powder. Review of Systems She has lost about 5 pounds over the past year. She denies cardiac or G.I. problems. Respiratory: She has occasional shortness of breath since she was hospitalized with cold did about 1 month ago. She does use intermittent oxygen. She denies maltreatment or problems with falling. : she denies any signific ant problems with urinary leakage. Past Medical History Past Medical History: COPD, Diabetes Mellitus, GERD/Reflux, Hyperlipidemia, Hypertension Additional Past Medical History / Comment(s): Borderline type 2 diabetes. 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 History of Any Multi-Drug Resistant Organisms: None Reported Past Surgical History: Breast Surgery, Hysterectomy Additional Past Surgical History / Comment(s): Right breast biopsy. Vaginal hysterectomy 1980. colonoscopy 2016. Past Anesthesia/Blood Transfusion Reactions: No Reported Reaction Past Psychological History: Bipolar, Depression Smoking Status: Former smoker Past Alcohol Use History: Occasional (1 per week) Additional Past Alcohol Use History / Comment(s): Quit smoking in 1996. Past Drug Use History: None Reported Additional History: She has been since 1966 and is retired. She has four horses. - Past Family History Father Family Medical History: Coronary Artery Disease (CAD), Diabetes Mellitus Mother Family Medical History: Myocardial Infarction (NH) Additional Family Medical History / Comment(s): 2 aunts had breast cancer. Sister(s) Family Medical History: Coronary Artery Disease (CAD) Brother(s) Family Medical History: Coronary Artery Disease (CAD) Medications and Allergies Home Medications Medication Instructions Recorded Confirmed Type Aloe Vera 1 tab PO DAILY 11/05/17 03/21/20 History Aspirin [Children's Aspirin] 81 mg PO DAILY 11/05/17 02/09/20 History Cholecalciferol [Vitamin D3 (25 1,000 unit PO DAILY 11/05/17 03/21/20 History Mcg = 1000 Iu)] Pravastatin Sodium [Pravachol] 40 mg PO HS 11/05/17 03/21/20 History cloNIDine HCL [Catapres] 0.1 mg PO BID 11/05/17 03/21/20 History lisinopriL [Zestril] 20 mg PO DAILY 11/05/17 03/21/20 History FLUoxetine HCL [PROzac] 20 mg PO DAILY 01/26/19 03/21/20 History Turmeric Root Extract [Turmeric] 500 mg PO DAILY 01/26/19 03/21/20 History metFORMIN HCL [Glucophage] 500 mg PO BID 01/26/19 03/21/20 History Latanoprost/Pf [Latanoprost 0.005% 1 drop RIGHT EYE HS 02/09/20 03/21/20 History Eye Drop] Tart [place] 1 tab PO DAILY 02/09/20 03/21/20 History Vitamin D3/Calcium 1 tab PO DAILY 02/09/20 03/21/20 History Ascorbic Acid [Vitamin C] 500 mg PO DAILY tab 02/17/20 03/21/20 Rx Melatonin 5 mg PO HS tablet 02/17/20 03/21/20 Rx Zinc Sulfate [Orazinc] 220 mg PO DAILY cap 02/17/20 03/21/20 Rx Allergies Allergy/AdvReac Type Severity Reaction Status Date / Time sulfamethoxazole AdvReac Severe Nausea & Verified 03/21/20 12:51 [From Bactrim] Vomiting trimethoprim [From Bactrim] AdvReac Severe Nausea & Verified 03/21/20 12:51 Vomiting Exam Vital Signs Temp Pulse Resp BP Pulse Ox 03/21/20 12:55 97.8 F 87 20 117/69 96 Intake and Output 03/20/20 03/21/20 03/21/20 22:59 06:59 14:59 Other: Weight 99.337 kg Height 5 feet 3 inches, weight 219 pounds, BMI 38.8. This is a well-developed well-nourished heavyset white female who is alert and oriented times 3 in no acute distress. HEENT: Within normal limits. NECK: Supple without mass or thyromegaly. CHEST AND LUNGS: Clear to auscultation. HEART: Regular rate and rhythm. BREASTS: Are without mass or discharge. AXILLARY EXAM: Negative for adenopathy. BACK: Negative for CVA tenderness. ABDOMEN: Soft, obese, nontender, without palpable masses. PELVIC EXAM: External genitalia appears normal with mild atrophy. Vagina appears normal is mild atrophy. There is no evidence of prolapse. Bimanual examination is negative for mass or tenderness. RECTAL EXAM: Rectovaginal exam is negative for mass or tenderness and is negative for occult blood. EXTREMITIES: Nontender. IMPRESSION: 1. 69-year-old menopausal female status post vaginal hysterectomy with normal gynecologic exam. 2. Vulvar irritation improved with Kenalog cream and she now uses this infrequently as needed. PLAN: 1. Pap smears have been discontinued. 2. Self breast awareness was discussed with the patient. 3. Screening mammogram will be done today. 4. A prescription for Kenalog 0.1% cream will be sent to [facility] pharmacy electronically. She can use this twice a day when necessary. 5. She had a normal bone density test in 2017 and we will plan on repeating this in approximately 3 years. 6. The patient was advised to return in 1-2 years for her well woman examination.
--- NOTE | 2020-03-22 13:54 | MM ---
Reason for exam: screening (asymptomatic). Last mammogram was performed 1 year and 2 months ago. History: Patient is postmenopausal. Family history of premenopausal breast cancer in 2 paternal aunts. Benign excisional biopsy of the right breast. Took hormonal contraceptives for 10 years beginning at age 19. Took estrogen for 14 years beginning at age 49. Physical Findings: A clinical breast exam by your physician is recommended on an annual basis and results should be correlated with mammographic findings. MG 3D Screening Mammo W/Cad Bilateral CC and MLO view(s) were taken. Prior study comparison: January 26, 2019, bilateral MG 3d screening mammo w/cad. November 05, 2017, bilateral MG 3d screening mammo w/cad. The breast tissue is almost entirely fat. No significant changes when compared with prior studies. ASSESSMENT: Benign, BI-RAD 2 RECOMMENDATION: Routine screening mammogram of both breasts in 1 year.
== END | disposition home or self-care (01) ==
LOC: WWCWWP 12:28
PROVIDERS: ATTEND Obstetrics & Gynecology
DX: Z12.31 Encounter for screening mammogram for malignant neoplasm of breast (principal)
CPT/HCPCS: 77063; 77067

== ENCOUNTER → 2022-04-30 | Outpatient (CLI) | payer MEDICARE ==
[2022-04-30 15:09] VITALS: BP 170/74; PULSE 68; RESP 17; TEMP 98.4
--- NOTE | 2022-04-30 16:01 | P.HPOB ---
History of Present Illness H&P Date: 04/30/22 Chief Complaint: The patient is here for her routine gynecologic exam and ma mmogram. This is a 71-year-old with an LMP of 1980. The patient is status post vaginal hysterectomy for benign reasons. She still has occasional vulvar irritation which is improved with Kenalog cream. She states she only needs to use the cream infrequently. On rare occasion, she has noticed a spot of blood when she wipes. This is very infrequent. Review of Systems She has lost about 16 pounds over the past year. She denies respiratory or cardiac problems. GI: Occasional indigestion. Past Medical History Past Medical History: COPD, Diabetes Mellitus, GERD/Reflux, Hyperlipidemia, Hypertension Additional Past Medical History / Comment(s): Borderline type 2 , RT EYE GLAUCOMA. 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 History of Any Multi-Drug Resistant Organisms: None Reported Past Surgical History: Breast Surgery, Hysterectomy Additional Past Surgical History / Comment(s): Right breast biopsy. Vaginal hysterectomy 1980. colonoscopy 2016. Past Anesthesia/Blood Transfusion Reactions: No Reported Reaction Past Psychological History: Bipolar, Depression Smoking Status: Former smoker Past Alcohol Use History: Rare (63 year) Additional Past Alcohol Use History / Comment(s): Quit smoking in 1996. Past Drug Use History: None Reported Additional History: She has been since 1966 and is retired. She owns 2 horses. - Past Family History Father Family Medical History: Coronary Artery Disease (CAD), Diabetes Mellitus Mother Family Medical History: Myocardial Infarction (MD) Additional Family Medical History / Comment(s): 2 aunts had breast cancer. Sister(s) Family Medical History: Coronary Artery Disease (CAD) Brother(s) Family Medical History: Coronary Artery Disease (CAD) Medications and Allergies Home Medications Medication Instructions Recorded Confirmed Type Aloe Vera 1 tab PO DAILY 11/05/17 04/30/22 History Aspirin [Children's Aspirin] 81 mg PO DAILY 11/05/17 04/30/22 History Cholecalciferol [Vitamin D3 (25 1,000 unit PO DAILY 11/05/17 04/30/22 History Mcg = 1000 Iu)] Pravastatin Sodium [Pravachol] 40 mg PO HS 11/05/17 04/30/22 History cloNIDine HCL [Catapres] 0.1 mg PO BID 11/05/17 04/30/22 History lisinopriL [Zestril] 20 mg PO DAILY 11/05/17 04/30/22 History FLUoxetine HCL [PROzac] 20 mg PO DAILY 01/26/19 04/30/22 History Turmeric Root Extract [Turmeric] 500 mg PO DAILY 01/26/19 04/30/22 History Latanoprost/Pf [Latanoprost 0.005% 1 drop RIGHT EYE HS 02/09/20 04/30/22 History Eye Drop] Tart [place] 1 tab PO DAILY 02/09/20 04/30/22 History Vitamin D3/Calcium 1 tab PO DAILY 02/09/20 04/30/22 History Ascorbic Acid [Vitamin C] 500 mg PO DAILY tab 02/17/20 04/30/22 Rx Melatonin 5 mg PO HS tablet 02/17/20 04/30/22 Rx Zinc Sulfate [Orazinc] 220 mg PO DAILY cap 02/17/20 04/30/22 Rx Triamcinolone 0.1% Cream [Kenalog 1 applicatio TOPICAL BID #30 gram 03/21/20 04/30/22 Rx 0.1% Cream] Allergies Allergy/AdvReac Type Severity Reaction Status Date / Time sulfamethoxazole AdvReac Severe Nausea & Verified 04/30/22 15:03 [From Bactrim] Vomiting trimethoprim [From Bactrim] AdvReac Severe Nausea & Verified 04/30/22 15:03 Vomiting Exam Vital Signs Temp Pulse Resp BP Pulse Ox 04/30/22 15:06 98.4 F 68 17 170/74 99 Intake and Output 04/30/22 04/30/22 04/30/22 06:59 14:59 22:59 Other: Weight 92.079 kg Height 5 feet 5 inches, weight 203 pounds, BMI 33.8. This is a well-developed well-nourished female who is alert and oriented times 3 in no acute distress. HEENT: Within normal limits. NECK: Supple without mass or thyromegaly. CHEST AND LUNGS: Clear to auscultation. HEART: Regular rate and rhythm. BREASTS: Are without mass or discharge. AXILLARY EXAM: Negative for adenopathy. BACK: Negative for CVA tenderness. ABDOMEN: Soft, nontender, without palpable masses. PELVIC EXAM: External genitalia appears normal with mild to moderate atrophy. There is no evidence of pallor. Vagina appears normal with mild atrophy. There is no evidence of prolapse. Bimanual examination is negative for mass or tenderness. RECTAL EXAM: Rectovaginal exam is negative for mass or tenderness and is negative for occult blood. EXTREMITIES: Nontender. IMPRESSION: 1. 71-year-old menopausal female status post vaginal hysterectomy for benign reasons, with normal gynecologic exam. 2. Infrequent vulvar irritation improved with Kenalog cream. 3. History of chronic hypertension with elevated blood pressure today. PLAN: 1. Pap smears have been discontinued. 2. Self breast awareness was discussed with the patient. We have also discussed symptoms associated with inflammatory breast cancer. 3. Screening mammogram will be done today. 4. We have discussed her elevated blood pressure. I recommended that she check her own blood pressures at home on a regular basis and follow up with her primary care physician for blood pressure elevations. 5. Kenalog 0.1% cream twice a day when necessary for vulvar irritation. The electronic prescription will be sent to [facility] pharmacy. 6.Osteoporosis prevention was discussed. I have stressed the importance of adequate calcium, vitamin D and regular exercise. Recommended amounts of calcium and vitamin D were also discussed. We will plan on doing another bone density test at her next well woman examination. 6. The patient was advised to return in 1-2 years for her well woman examination.
--- NOTE | 2022-05-01 22:03 | MM ---
Reason for Exam: Screening (asymptomatic). Last mammogram was performed 2 year(s) and 1 month(s) ago. Patient History: Menarche at age 11. First Full-Term at age 16. Hysterectomy at age 30. Postmenopausal. Estrogen for 14 years from age 49 until age 63. Hormonal Contraceptives, starting at age 19 for 10 years. Benign Excisional Biopsy on the right side. Paternal aunt had breast cancer. Paternal aunt had breast cancer. Risk Values: Lala 5 year model risk: 1.5%. NCI Lifetime model risk: 3.9%. Prior Study Comparison: 11/05/2017 Bilateral Screening Mammogram, [facility]. 01/26/2019 Bilateral Screening Mammogram, [facility]. 03/21/2020 Bilateral Screening Mammogram, [facility]. Tissue Density: There are scattered fibroglandular densities. Findings: Analyzed By CAD. The subareolar region of the left MLO view has a more nodular configuration that incompletely disperses on 3-D images. Further evaluation recommended. Otherwise, there are benign bilateral calcifications and a low axillary tail lymph node on the left which are all unchanged. Overall Assessment: Incomplete: need additional imaging evaluation, BI-RAD 0 Management: Special View Mammogram of the left breast. Diagnostic Breast Ultrasound of the left breast. Including spot 3-D MLO and 3-D lateral views. Subareolar and periareolar left breast ultrasound. [facility] will attempt to contact patient to return for supplemental views and ultrasound if indicated. Electronically signed and approved by: Golden Contreras M.D. Radiologist
== END ==
LOC: WWCWWP 14:57
PROVIDERS: ATTEND Obstetrics & Gynecology
DX: Z01.411 Encounter for gynecological examination (general) (routine) with abnormal findings (principal); Z12.31 Encounter for screening mammogram for malignant neoplasm of breast; J44.9 Chronic obstructive pulmonary disease, unspecified; E11.9 Type 2 diabetes mellitus without complications; K21.9 Gastro-esophageal reflux disease without esophagitis; I10 Essential (primary) hypertension; E78.5 Hyperlipidemia, unspecified; Z87.891 Personal history of nicotine dependence; Z86.79 Personal history of other diseases of the circulatory system; Z79.82 Long term (current) use of aspirin; Z79.899 Other long term (current) drug therapy; Z88.2 Allergy status to sulfonamides; Z99.89 Dependence on other enabling machines and devices; Z88.1 Allergy status to other antibiotic agents
CPT/HCPCS: 77063; 77067

== ENCOUNTER → 2022-05-06 | Outpatient (CLI) | payer MEDICARE ==
--- NOTE | 2022-05-06 10:53 | MM ---
Reason for Exam: Additional evaluation requested from abnormal screening. Last screening mammogram was performed less than 1 month ago. Patient History: Menarche at age 11. First Full-Term at age 16. Hysterectomy at age 30. Postmenopausal. Estrogen for 14 years from age 49 until age 63. Hormonal Contraceptives, starting at age 19 for 10 years. Benign Excisional Biopsy on the right side. Paternal aunt had breast cancer. Paternal aunt had breast cancer. Risk Values: Lala 5 year model risk: 1.5%. NCI Lifetime model risk: 3.9%. Prior Study Comparison: 01/26/2019 Bilateral Screening Mammogram, [facility]. 03/21/2020 Bilateral Screening Mammogram, [facility]. 04/30/2022 Bilateral MG 3D screening mammo w/cad, [facility]. Tissue Density: Left: There are scattered fibroglandular densities. Findings: Analyzed By CAD. No distinct new lesion persists on additional views. Overall Assessment: Negative, BI-RAD 1 Management: Screening Mammogram of both breasts in 1 year. Return to routine follow-up. Results were given to the patient verbally at the time of exam. Electronically signed and approved by: Nir Bailey M.D.
--- NOTE | 2022-05-06 11:24 | USB ---
Patient History: Menarche at age 11. First Full-Term at age 16. Hysterectomy at age 30. Postmenopausal. Estrogen for 14 years from age 49 until age 63. Hormonal Contraceptives, starting at age 19 for 10 years. Benign Excisional Biopsy on the right side. Paternal aunt had breast cancer. Paternal aunt had breast cancer. Risk Values: Lala 5 year model risk: 1.5%. NCI Lifetime model risk: 3.9%. Technique: Method: Targeted. Prior Study Comparison: 01/26/2019 Bilateral Screening Mammogram, [facility]. 03/21/2020 Bilateral Screening Mammogram, [facility]. 04/30/2022 Bilateral MG 3D screening mammo w/cad, [facility]. Findings: The axilla of the left breast and the retroareolar of the left breast were scanned. Tight ultrasound left breast shows prominent tissue subareolar region. No concerning solid or cystic mass is present. Overall Assessment: Negative, BI-RAD 1 Management: Screening Mammogram of both breasts in 1 year. A clinical breast exam by your physician is recommended on an annual basis and results should be correlated with mammographic findings. This exam should not preclude additional follow-up of suspicious palpable abnormalities. Results were given to the patient verbally at the time of exam. Electronically signed and approved by: Nir Bailey M.D.
== END | disposition home or self-care (01) ==
LOC: RADMAMWWP 10:16
PROVIDERS: ATTEND Obstetrics & Gynecology
DX: R92.8 Other abnormal and inconclusive findings on diagnostic imaging of breast (principal); Z78.0 Asymptomatic menopausal state; Z80.3 Family history of malignant neoplasm of breast
CPT/HCPCS: 77065; 76642; G0279; 77061

== ENCOUNTER 2023-05-10 09:37 | Observation (INO) | payer MEDICARE ==
[2023-05-10] MEDS ORDERED: SODIUM CHLORIDE 0.9% 1,000 ML IV STA ×2 (09:49→13:00)
[2023-05-10] MEDS ORDERED: ONDANSETRON 4 MG/2 ML VIAL IVP STA (09:49)
[2023-05-10] MEDS ORDERED: HYDROmorphone 1 MG/ML 1 ML SYRINGE IVP STA (09:50)
[2023-05-10] MEDS ORDERED: FAMOTIDINE 20 MG/2 ML VIAL IV STA (09:50)
--- NOTE | 2023-05-10 09:53 | ED ---
General Adult HPI - General Chief complaint: Abdominal Pain Stated complaint: Right abd pain Time Seen by Provider: 05/10/23 09:45 Source: patient, family, RN notes reviewed Mode of arrival: ambulatory Limitations: no limitations - History of Present Illness Initial comments: Patient is a pleasant 72-year-old female presenting to the emergency department with concerns with abdominal pain. Onset of symptoms was yesterday around noon. Patient has had some nausea, no vomiting. No constipation or diarrhea. Abdominal discomfort is more right sided. Discomfort does increase with upright position as well as movement. No history of similar symptoms previously. Patient denies any history of previous abdominal surgery. No urinary symptoms - Related Data Home Medications Medication Instructions Recorded Confirmed Aloe Vera 1 tab PO DAILY 11/05/17 04/30/22 Aspirin [Children's Aspirin] 81 mg PO DAILY 11/05/17 04/30/22 Cholecalciferol [Vitamin D3 (25 1,000 unit PO DAILY 11/05/17 04/30/22 Mcg = 1000 Iu)] Pravastatin Sodium [Pravachol] 40 mg PO HS 11/05/17 04/30/22 cloNIDine HCL [Catapres] 0.1 mg PO BID 11/05/17 04/30/22 lisinopriL [Zestril] 20 mg PO DAILY 11/05/17 04/30/22 FLUoxetine HCL [PROzac] 20 mg PO DAILY 01/26/19 04/30/22 Turmeric Root Extract [Turmeric] 500 mg PO DAILY 01/26/19 04/30/22 Latanoprost/Pf [Latanoprost 0.005% 1 drop RIGHT EYE HS 02/09/20 04/30/22 Eye Drop] [place] 1 tab PO DAILY 02/09/20 04/30/22 Vitamin D3/Calcium 1 tab PO DAILY 02/09/20 04/30/22 Previous Rx's Medication Instructions Recorded Ascorbic Acid [Vitamin C] 500 mg PO DAILY tab 02/17/20 Melatonin 5 mg PO HS tablet 02/17/20 Zinc Sulfate [Orazinc] 220 mg PO DAILY cap 02/17/20 Triamcinolone 0.1% Cream [Kenalog 1 applicatio TOPICAL BID PRN #30 04/30/22 0.1% Cream] gram Allergies Allergy/AdvReac Type Severity Reaction Status Date / Time sulfamethoxazole AdvReac Severe Nausea & Verified 04/30/22 15:03 [From Bactrim] Vomiting trimethoprim [From Bactrim] AdvReac Severe Nausea & Verified 04/30/22 15:03 Vomiting Review of Systems ROS Statement: Those systems with pertinent positive or pertinent negative responses have been documented in the HPI. ROS Other: All systems not noted in ROS Statement are negative. Constitutional: Denies: fever, chills ENT: Denies: ear pain Respiratory: Denies: cough Cardiovascular: Denies: chest pain Gastrointestinal: Reports: as per HPI, abdominal pain, nausea. Denies: vomiting Musculoskeletal: Denies: back pain Past Medical History Past Medical History: COPD, Diabetes Mellitus, GERD/Reflux, Hyperlipidemia, Hypertension Additional Past Medical History / Comment(s): Borderline type 2 , RT EYE GLAUCOMA. 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 History of Any Multi-Drug Resistant Organisms: None Reported Past Surgical History: Breast Surgery, Hysterectomy Additional Past Surgical History / Comment(s): Right breast biopsy. Vaginal hysterectomy 1980. colonoscopy 2016. Past Anesthesia/Blood Transfusion Reactions: No Reported Reaction Past Psychological History: Bipolar, Depression Smoking Status: Former smoker Past Alcohol Use History: Rare Past Drug Use History: None Reported - Past Family History Father Family Medical History: Coronary Artery Disease (CAD), Diabetes Mellitus Mother Family Medical History: Myocardial Infarction ([place]) Additional Family Medical History / Comment(s): 2 aunts had breast cancer. Sister(s) Family Medical History: Coronary Artery Disease (CAD) Brother(s) Family Medical History: Coronary Artery Disease (CAD) General Exam Limitations: no limitations General appearance: alert, in no apparent distress Head exam: Present: normocephalic Eye exam: Present: normal appearance Neck exam: Present: normal inspection Respiratory exam: Present: normal lung sounds bilaterally Cardiovascular Exam: Present: regular rate, normal rhythm Expanded Peripheral pulses: 2+: Dorsalis Pedis (R), Dorsalis Pedis (L) GI/Abdominal exam: Present: soft, tenderness (Moderate tenderness right side of abdomen), normal bowel sounds. Absent: distended, rebound, rigid, pulsatile mass Extremities exam: Present: normal inspection Neurological exam: Present: alert Psychiatric exam: Present: normal affect, normal mood Skin exam: Present: normal color Course Vital Signs 05/10/23 05/10/23 05/10/23 09:39 10:23 12:01 Temperature 97.3 F L Pulse Rate 93 85 78 Respiratory 16 17 18 Rate Blood Pressure 194/98 128/66 128/63 O2 Sat by Pulse 98 98 95 Oximetry EKG Findings - EKG Results: EKG: interpreted by ERMD (Low QRS voltage. Q waves V1. Nonspecific ST-T), sinus rhythm, normal axis Medical Decision Making - Medical Decision Making Was pt. sent in by a medical professional or institution (, PA, GHOST WRITER, urgent care, hospital, or [facility]...) When possible be specific @ -No Did you speak to anyone other than the patient for history (EMS, parent, family, police, friend...)? What history was obtained from this source @ -Family is present and confirms history as patient presents at Did you review nursing and triage notes (agree or disagree)? Why? @ -I reviewed and agree with nursing and triage notes Were old charts reviewed (outside hosp., previous admission, EMS record, old EKG, old radiological studies, urgent care reports/EKG's, [facility] records)? Report findings @ -No old charts were reviewed Differential Diagnosis (chest pain, altered mental status, abdominal pain women, abdominal pain men, vaginal bleeding, weakness, fever, dyspnea, syncope, headache, dizziness, GI bleed, back pain, seizure, CVA, palpatations, mental health, musculoskeletal)? @ -Differential Abdominal Pain Women: Appendicitis, Cholecystitis, diverticulosis, ischemic bowel, pancreatitis, hepatitis, UTI, gastroenteritis, AAA, incarcerated hernia, bowel obstruction, constipation, inflammatory bowel, hepatitis, peptic ulcer disease, splenic infarction, perforated viscus, vulvitis, ovarian torsion, PID, kidney stone, placenta abruption, this is not meant to be an all-inclusive list EKG interpreted by me (3pts min.). @ -As above X-rays interpreted by me (1pt min.). @ -None done CT interpreted by me (1pt min.). @ -Computed tomography scan shows right lower abdominal inflammation consistent with appendicitis. U/S interpreted by me (1pt. min.). @ -None done What testing was considered but not performed or refused? (CT, X-rays, U/S, labs)? Why? @ -None What meds were considered but not given or refused? Why? @ -None Did you discuss the management of the patient with other professionals (professionals i.e. Dr., PA, GHOST WRITER, lab, RT, psych nurse, social media editor, clinical manager home care, teacher, aviation tactical readiness officer, case sealer)? Give summary @ -Case was discussed with surgeon Dr. Mcghee who will admit and does agree with antibiotics Was smoking cessation discussed for >3mins.? @ -No Was critical care preformed (if so, how long)? @ -No Were there social determinants of health that impacted care today? How? (Homelessness, low income, unemployed, alcoholism, drug addiction, transportation, low edu. Level, literacy, decrease access to med. care, alf, rehab)? @ -No Was there de-escalation of care discussed even if they declined (Discuss DNR or withdrawal of care, Hospice)? DNR status @ -No What co-morbidities impacted this encounter? (DM, HTN, Smoking, COPD, CAD, Cancer, CVA, ARF, Chemo, Hep., AIDS, mental health diagnosis, sleep apnea, morbid obesity)? @ -None Was patient admitted / discharged? Hospital course, mention meds given and route, prescriptions, significant lab abnormalities, going to OR and other pertinent info. @ -Patient reevaluated. Patient and family are updated on results and plan. Patient will be admitted to surgeon. Antibiotics started. Admission orders written. Undiagnosed new problem with uncertain prognosis? @ -No Drug Therapy requiring intensive monitoring for toxicity (Heparin, Nitro, Insulin, Cardizem)? @ -No Were any procedures done? @ -No Diagnosis/symptom? @ -appendicitis Acute, or Chronic, or Acute on Chronic? @ -Acute Uncomplicated (without systemic symptoms) or Complicated (systemic symptoms)? @ -default Side effects of treatment? @ -No Exacerbation, Progression, or Severe Exacerbation? @ -No Poses a threat to life or bodily function? How? (Chest pain, [place], [place], pneumonia, PE, COPD, DKA, ARF, appy, cholecystitis, CVA, Diverticulitis, Homicidal, Suicidal, threat to staff... and all critical care pts) @ -No - Lab Data Result diagrams: 05/10/23 09:58 05/10/23 09:58 Lab Results 05/10/23 05/10/23 05/10/23 Range/Units 09:58 09:58 09:58 WBC 17.5 H (3.8-10.6) k/uL RBC 4.82 (3.80-5.40) m/uL Hgb 14.6 (11.4-16.0) gm/dL Hct 43.2 (34.0-46.0) % MCV 89.6 (80.0-100.0) fL MCH 30.3 (25.0-35.0) pg MCHC 33.8 (31.0-37.0) g/dL RDW 13.2 (11.5-15.5) % Plt Count 225 (150-450) k/uL MPV 7.7 Neutrophils % 89 % Lymphocytes % 6 % Monocytes % 4 % Eosinophils % 1 % Basophils % 0 % Neutrophils # 15.5 H (1.3-7.7) k/uL Lymphocytes # 1.0 (1.0-4.8) k/uL Monocytes # 0.7 (0-1.0) k/uL Eosinophils # 0.1 (0-0.7) k/uL Basophils # 0.1 (0-0.2) k/uL PT 9.9 L (10.0-12.5) sec INR 0.9 (<1.2) APTT 24.9 (22.0-30.0) sec Sodium (137-145) mmol/L Potassium (3.5-5.1) mmol/L Chloride (98-107) mmol/L Carbon Dioxide (22-30) mmol/L Anion Gap mmol/L BUN (7-17) mg/dL Creatinine (0.52-1.04) mg/dL Est GFR (CKD-EPI)AfAm (>60 ml/min/1.73 sqM) Est GFR (CKD-EPI)NonAf (>60 ml/min/1.73 sqM) Glucose (74-99) mg/dL Calcium (8.4-10.2) mg/dL Total Bilirubin (0.2-1.3) mg/dL AST (14-36) U/L ALT (4-34) U/L Alkaline Phosphatase (38-126) U/L Total Protein (6.3-8.2) g/dL Albumin (3.5-5.0) g/dL Amylase (30-110) U/L Lipase (23-300) U/L Urine Color Light Yellow Urine Appearance Cloudy H (Clear) Urine pH 6.5 (5.0-8.0) Ur Specific [place] >1.050 H (1.001-1.035) Urine Protein Trace H (Negative) Urine Glucose (UA) Negative (Negative) Urine Ketones Negative (Negative) Urine Blood Negative (Negative) Urine Nitrite Negative (Negative) Urine Bilirubin Negative (Negative) Urine Urobilinogen <2.0 (<2.0) mg/dL Ur Leukocyte Esterase Negative (Negative) Urine RBC 4 (0-5) /hpf Urine WBC 5 (0-5) /hpf Ur Squamous Epith Cells 38 H (0-4) /hpf Urine Mucus Few H (None) /hpf 05/10/23 Range/Units 09:58 WBC (3.8-10.6) k/uL RBC (3.80-5.40) m/uL Hgb (11.4-16.0) gm/dL Hct (34.0-46.0) % MCV (80.0-100.0) fL MCH (25.0-35.0) pg MCHC (31.0-37.0) g/dL RDW (11.5-15.5) % Plt Count (150-450) k/uL MPV Neutrophils % % Lymphocytes % % Monocytes % % Eosinophils % % Basophils % % Neutrophils # (1.3-7.7) k/uL Lymphocytes # (1.0-4.8) k/uL Monocytes # (0-1.0) k/uL Eosinophils # (0-0.7) k/uL Basophils # (0-0.2) k/uL PT (10.0-12.5) sec INR (<1.2) APTT (22.0-30.0) sec Sodium 134 L (137-145) mmol/L Potassium 4.5 (3.5-5.1) mmol/L Chloride 102 (98-107) mmol/L Carbon Dioxide 23 (22-30) mmol/L Anion Gap 9 mmol/L BUN 15 (7-17) mg/dL Creatinine 0.55 (0.52-1.04) mg/dL Est GFR (CKD-EPI)AfAm >90 (>60 ml/min/1.73 sqM) Est GFR (CKD-EPI)NonAf >90 (>60 ml/min/1.73 sqM) Glucose 141 H (74-99) mg/dL Calcium 10.2 (8.4-10.2) mg/dL Total Bilirubin 0.9 (0.2-1.3) mg/dL AST 28 (14-36) U/L ALT 29 (4-34) U/L Alkaline Phosphatase 109 (38-126) U/L Total Protein 7.9 (6.3-8.2) g/dL Albumin 4.7 (3.5-5.0) g/dL Amylase 63 (30-110) U/L Lipase 30 (23-300) U/L Urine Color Urine Appearance (Clear) Urine pH (5.0-8.0) Ur Specific [place] (1.001-1.035) Urine Protein (Negative) Urine Glucose (UA) (Negative) Urine Ketones (Negative) Urine Blood (Negative) Urine Nitrite (Negative) Urine Bilirubin (Negative) Urine Urobilinogen (<2.0) mg/dL Ur Leukocyte Esterase (Negative) Urine RBC (0-5) /hpf Urine WBC (0-5) /hpf Ur Squamous Epith Cells (0-4) /hpf Urine Mucus (None) /hpf Disposition Clinical Impression: Acute appendicitis Disposition: ADMITTED IP TO THIS HOSP Is patient prescribed a controlled substance at d/c from ED?: No Referrals: Katharine Bosch MD [Primary Care Provider] - 1-2 days Time of Disposition: 13:03
[2023-05-10 10:34] LABS: Basophils # (A) 0.1 k/uL (0-0.2); Basophils % (A) 0 %; Eosinophils # (A) 0.1 k/uL (0-0.7); Eosinophils % (A) 1 %; HCT 43.2 % (34.0-46.0); HGB 14.6 gm/dL (11.4-16.0); Lymphocytes % (A) 6 %; MCH 30.3 pg (25.0-35.0); MCHC 33.8 g/dL (31.0-37.0); MCV 89.6 fL (80.0-100.0); Mean Platelet Volume 7.7; Monocytes # (A) 0.7 k/uL (0-1.0); Monocytes % (A) 4 %; Neutrophils # (A) 15.5 k/uL (1.3-7.7); Neutrophils % (A) 89 %; Platelet Count 225 k/uL (150-450); RBC 4.82 m/uL (3.80-5.40); RDW 13.2 % (11.5-15.5); WBC 17.5 k/uL (3.8-10.6)
[2023-05-10 10:44] LABS: INR 0.9 (<1.2); Partial Thromboplastin Time 24.9 sec (22.0-30.0); Prothrombin Time 9.9 sec (10.0-12.5)
[2023-05-10 10:49] LABS: ALT 29 U/L (4-34); AST 28 U/L (14-36); African American GFR (CKD) >90 (>60 ml/min/1.73 sqM); Albumin 4.7 g/dL (3.5-5.0); Alkaline Phosphatase 109 U/L (38-126); Amylase 63 U/L (30-110); Anion Gap 9 mmol/L; Blood Urea Nitrogen 15 mg/dL (7-17); Calcium 10.2 mg/dL (8.4-10.2); Carbon Dioxide 23 mmol/L (22-30); Chloride 102 mmol/L (98-107); Glucose 141 mg/dL (74-99); Lipase 30 U/L (23-300); Non-African American GFR(CKD) >90 (>60 ml/min/1.73 sqM); Potassium 4.5 mmol/L (3.5-5.1); Sodium 134 mmol/L (137-145); Total Bilirubin 0.9 mg/dL (0.2-1.3); Total Protein 7.9 g/dL (6.3-8.2)
[2023-05-10 12:27] LABS: Appearance,Urine Cloudy (Clear); Bilirubin,Urine Negative (Negative); Blood,Urine Negative (Negative); Color,Urine Light Yellow; Glucose,Urine (UA) Negative (Negative); Ketones,Urine Negative (Negative); Leukocyte Esterase,Urine Negative (Negative); Mucus,Urine Few /hpf; Nitrite,Urine Negative (Negative); PH, Urine 6.5 (5.0-8.0); Protein,Urine Trace (Negative); RBC,Urine 4 /hpf (0-5); Squamous Epithelial Cell,Urine 38 /hpf (0-4); Urobilinogen,Urine <2.0 mg/dL (<2.0); WBC,Urine 5 /hpf (0-5)
[2023-05-10 12:42] LABS: Specific Gravity,Urine >1.050 (1.001-1.035)
--- NOTE | 2023-05-10 12:57 | CT ---
EXAMINATION TYPE: CT abdomen pelvis w con DATE OF EXAM: 05/10/2023 COMPARISON: None INDICATION: RLQ abdominal pain DLP: 1152.4 mGycm, Automated exposure control for dose reduction was used. CONTRAST: 100ml mL of Isovue 300. Study performed without Oral Contrast TECHNIQUE: Axial images were obtained from above the diaphragm to the pubic rami in the axial plane a t 5 mm thick sections. Reconstructed images are reviewed on the computer in the coronal plane. FINDINGS: Limited CT sections are obtained the lung bases. The lung bases are clear. CT ABDOMEN: Liver: There is moderate fatty infiltration of liver. Spleen: Normal Pancreas: Normal Adrenal glands: The adrenal glands are normal. Gallbladder: Normal Kidneys: No masses are evident. No hydronephrosis is present. No cysts are present. Delayed images were obtained through the kidneys, which remain unremarkable. Aorta: Vascular calcification is within the aorta. Inferior vena cava: Normal. CT PELVIS: Loops of bowel within the abdomen and pelvis are normal. Some inflammatory changes are in the rig ht lower quadrant. Appendix: There is a dilated appendix with thickened wall appendix measures 1.2 cm in diameter. Infla mmatory changes are adjacent to the appendix. No free air is evident. No abscess formation is identif ied. Findings are compatible with acute appendicitis. Report was called to the emergency room at the time of dictation. Urinary bladder: Normal. Genitourinary structures: Uterus and ovaries are not identified Osseous structures: No suspicious lytic or sclerotic lesions. IMPRESSION: 1. Acute appendicitis.
[2023-05-10] MEDS ORDERED: PIPERACILLIN-TAZOBACTAM 3.375 GM in SODIUM CHLORIDE 0.9% 100 ML IVPB STA (13:00)
[2023-05-10] MEDS ORDERED: HYDROmorphone 1 MG/ML 1 ML SYRINGE IVP PRN (13:03)
[2023-05-10] MEDS ORDERED: ONDANSETRON 4 MG/2 ML VIAL IVP PRN (13:03)
[2023-05-10] MEDS ORDERED: NALOXONE 0.4 MG/ML 1 ML VIAL IV PRN (13:03)
[2023-05-10] MEDS ORDERED: HYDROmorphone 0.5 MG/0.5 ML SYRINGE IVP PRN (13:03)
[2023-05-10] MEDS: SODIUM CHLORIDE 0.9% 1,000 ML IV SCH ×4 (13:23→23:21)
--- NOTE | 2023-05-10 14:02 | P.GSHP ---
History of Present Illness H&P Date: 05/10/23 Chief Complaint: Abdominal Pain 72 year old female presents with abdominal pain. She has associated nausea and vomiting. She had a CT-AP done which shows acute appendicitis. - Constitutional Constitutional: Denies chills, Denies fever - Cardiovascular Cardiovascular: Denies chest pain, Denies shortness of breath - Respiratory Respiratory: Denies cough, Denies 7 - Gastrointestinal Gastrointestinal: Reports abdominal pain, Reports belching, Reports bloating - Musculoskeletal Musculoskeletal: Denies myalgias Past Medical History Past Medical History: COPD, Diabetes Mellitus, GERD/Reflux, Hyperlipidemia, Hypertension Additional Past Medical History / Comment(s): Borderline type 2 , RT EYE GLAUCOMA. 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 History of Any Multi-Drug Resistant Organisms: None Reported Past Surgical History: Breast Surgery, Hysterectomy Additional Past Surgical History / Comment(s): Right breast biopsy. Vaginal hysterectomy 1980. colonoscopy 2016. Past Anesthesia/Blood Transfusion Reactions: No Reported Reaction Past Psychological History: Bipolar, Depression Smoking Status: Former smoker Past Alcohol Use History: Rare Additional Past Alcohol Use History / Comment(s): Quit smoking in 1996. Past Drug Use History: None Reported - Past Family History Father Family Medical History: Coronary Artery Disease (CAD), Diabetes Mellitus Mother Family Medical History: Myocardial Infarction ([place]) Additional Family Medical History / Comment(s): 2 aunts had breast cancer. Sister(s) Family Medical History: Coronary Artery Disease (CAD) Brother(s) Family Medical History: Coronary Artery Disease (CAD) Medications and Allergies Home Medications Medication Instructions Recorded Confirmed Type Aspirin [Children's Aspirin] 81 mg PO DAILY 11/05/17 05/10/23 History cloNIDine HCL [Catapres] 0.1 mg PO BID 11/05/17 05/10/23 History lisinopriL [Zestril] 20 mg PO DAILY 11/05/17 05/10/23 History FLUoxetine HCL [PROzac] 20 mg PO DAILY 01/26/19 05/10/23 History Turmeric Root Extract [Turmeric] 500 mg PO DAILY 01/26/19 05/10/23 History Calcium W/Vitamin D3(Unknown Dose) 1 tab PO DAILY 05/10/23 05/10/23 History Melatonin 3 mg PO HS 05/10/23 05/10/23 History Pravastatin Sodium [Pravachol] 20 mg PO HS 05/10/23 05/10/23 History Timolol 0.5% Ophth Soln [Timoptic 1 drop RIGHT EYE BID 05/10/23 05/10/23 History 0.5% Ophth Soln] Tums Extra Strength 400mg 400 mg PO BID 05/10/23 05/10/23 History Vit A/Vit C/Vit E/Zinc/Copper 1 cap PO DAILY 05/10/23 05/10/23 History [ICAPS SOFTGEL] Vitamin B Complex 1 cap PO DAILY 05/10/23 05/10/23 History Zinc Gluconate [Zinc] 50 mg PO DAILY 05/10/23 05/10/23 History Allergies Allergy/AdvReac Type Severity Reaction Status Date / Time sulfamethoxazole Allergy Severe Rash/Hives Verified 05/10/23 13:25 [From Bactrim] all over body trimethoprim [From Bactrim] Allergy Severe Rash/Hives Verified 05/10/23 13:25 all over body Surgical - Exam Vital Signs Temp Pulse Resp BP Pulse Ox 97.3 F L 93 16 194/98 98 05/10/23 09:39 05/10/23 09:39 05/10/23 09:39 05/10/23 09:39 05/10/23 09:39 - General well developed, well nourished - Abdomen Abdomen: soft, distended (Abdomen TTP RLQ) Results - Labs 05/10/23 09:58 05/10/23 09:58 Abnormal Lab Results - Last 24 Hours (Table) 05/10/23 05/10/23 05/10/23 Range/Units 09:58 09:58 09:58 WBC 17.5 H (3.8-10.6) k/uL Neutrophils # 15.5 H (1.3-7.7) k/uL PT 9.9 L (10.0-12.5) sec Sodium (137-145) mmol/L Glucose (74-99) mg/dL Urine Appearance Cloudy H (Clear) Ur Specific [place] >1.050 H (1.001-1.035) Urine Protein Trace H (Negative) Ur Squamous Epith Cells 38 H (0-4) /hpf Urine Mucus Few H (None) /hpf 05/10/23 Range/Units 09:58 WBC (3.8-10.6) k/uL Neutrophils # (1.3-7.7) k/uL PT (10.0-12.5) sec Sodium 134 L (137-145) mmol/L Glucose 141 H (74-99) mg/dL Urine Appearance (Clear) Ur Specific [place] (1.001-1.035) Urine Protein (Negative) Ur Squamous Epith Cells (0-4) /hpf Urine Mucus (None) /hpf Diabetes panel 05/10/23 Range/Units 09:58 Sodium 134 L (137-145) mmol/L Potassium 4.5 (3.5-5.1) mmol/L Chloride 102 (98-107) mmol/L Carbon Dioxide 23 (22-30) mmol/L BUN 15 (7-17) mg/dL Creatinine 0.55 (0.52-1.04) mg/dL Glucose 141 H (74-99) mg/dL Calcium 10.2 (8.4-10.2) mg/dL AST 28 (14-36) U/L ALT 29 (4-34) U/L Alkaline Phosphatase 109 (38-126) U/L Total Protein 7.9 (6.3-8.2) g/dL Albumin 4.7 (3.5-5.0) g/dL Calcium panel 05/10/23 Range/Units 09:58 Calcium 10.2 (8.4-10.2) mg/dL Albumin 4.7 (3.5-5.0) g/dL Pituitary panel 05/10/23 Range/Units 09:58 Sodium 134 L (137-145) mmol/L Potassium 4.5 (3.5-5.1) mmol/L Chloride 102 (98-107) mmol/L Carbon Dioxide 23 (22-30) mmol/L BUN 15 (7-17) mg/dL Creatinine 0.55 (0.52-1.04) mg/dL Glucose 141 H (74-99) mg/dL Calcium 10.2 (8.4-10.2) mg/dL Adrenal panel 05/10/23 Range/Units 09:58 Sodium 134 L (137-145) mmol/L Potassium 4.5 (3.5-5.1) mmol/L Chloride 102 (98-107) mmol/L Carbon Dioxide 23 (22-30) mmol/L BUN 15 (7-17) mg/dL Creatinine 0.55 (0.52-1.04) mg/dL Glucose 141 H (74-99) mg/dL Calcium 10.2 (8.4-10.2) mg/dL Total Bilirubin 0.9 (0.2-1.3) mg/dL AST 28 (14-36) U/L ALT 29 (4-34) U/L Alkaline Phosphatase 109 (38-126) U/L Total Protein 7.9 (6.3-8.2) g/dL Albumin 4.7 (3.5-5.0) g/dL Assessment and Plan (1) Acute appendicitis Current Visit: Yes Status: Acute Code(s): K35.80 - UNSPECIFIED ACUTE APPENDICITIS SNOMED Code(s): 29898146 Plan: OR for appendectomy
[2023-05-10] MEDS ORDERED: PROPOFOL 10 MG/ML 20 ML VIAL IV ONE (14:24)
[2023-05-10] MEDS ORDERED: fentaNYL (PF) 50 MCG/ML 2 ML AMP ONE (14:24)
[2023-05-10] MEDS ORDERED: DEXAMETHASONE SOD PHOSPHATE 4 MG/ML 1 ML VIAL ONE (14:24)
[2023-05-10] MEDS ORDERED: LIDOCAINE 4% LTA KIT (4 ML) TOPICAL ONE (14:24)
[2023-05-10] MEDS ORDERED: SUCCINYLCHOLINE CHLORIDE 200 MG/10 ML VIAL IV ONE (14:24)
[2023-05-10] MEDS ORDERED: KETOROLAC 15 MG/ML 1 ML VIAL ONE (14:24)
[2023-05-10] MEDS ORDERED: NEOSTIGMINE 1 MG/ML 10 ML VIAL ONE (14:24)
[2023-05-10] MEDS ORDERED: MIDAZOLAM 2 MG/2 ML VIAL ONE (14:24)
[2023-05-10] MEDS ORDERED: GLYCOPYRROLATE 0.2 MG/ML 2 ML VIAL ONE (14:24)
[2023-05-10] MEDS ORDERED: ROCURONIUM 10 MG/ML (5 ML VIAL) IV ONE (14:24)
[2023-05-10] MEDS ORDERED: ONDANSETRON 4 MG/2 ML VIAL ONE (14:24)
[2023-05-10] MEDS ORDERED: LIDOCAINE 1% INJ 10MG/ML (20 ML MDV) ONE (14:24)
[2023-05-10] MEDS ORDERED: SODIUM CHLORIDE 0.9% 1,000 ML IV ONE (14:28)
[2023-05-10] MEDS ORDERED: BUPIVACAINE (PF) 0.25% 30 ML VIAL SQ ONE ×2 (14:28→14:49)
[2023-05-10 15:59] LABS: Glucose,Whole Blood 125 mg/dL (70-110)
--- NOTE | 2023-05-10 16:18 | P.OP ---
Date of Procedure: 05/10/23 Preoperative Diagnosis: Acute Appendicitis Postoperative Diagnosis: Perforated Appendicitis Procedure(s) Performed: Laparoscopic Appendectomy Implants: None Anesthesia: ANDI Surgeon: Yousif Gonzalez Condition: stable Disposition: floor Indications for Procedure: Appendicitis Operative Findings: See Note Description of Procedure: The patient was brought to the operating suite and placed in the supine position. Anesthesia was given and the patient was intubated. The patient was prepped and draped in sterile fashion. A timeout was performed prior to the procedure. An #11 blade was used to make an incision at [place] point and a 5 mm optiview was used to gain access to the abdomen. The abdomen was insufflated. Additional working ports were placed and the 5 mm port was replaced with a 12 mm port. The appendix was inspected and was perforated with an abscess cavity. There was little residual appendix left and it was adhered to the cecum. Suction quality specialist was used to irrigate the area. The mesoappendix was taken down with a ligasure device and the appendix was divided at the base with a 60 mm purple staple load. The specimen was removed. The incisions were closed with 4-0 monocryl and skin glue was applied. The patient was sent to the PACU in stable condition.
[2023-05-10] MEDS: PIPERACILLIN-TAZOBACTAM 3.375 GM in SODIUM CHLORIDE 0.9% 100 ML IVPB SCH ×2 (16:58→22:59)
[2023-05-11] MEDS: SODIUM CHLORIDE 0.9% 1,000 ML IV SCH ×6 (06:18→20:56)
[2023-05-11] MEDS: PIPERACILLIN-TAZOBACTAM 3.375 GM in SODIUM CHLORIDE 0.9% 100 ML IVPB SCH ×2 (08:40→16:41)
[2023-05-11] MEDS: PANTOPRAZOLE 40 MG/10 ML VIAL IV SCH (08:42)
[2023-05-11] MEDS ORDERED: NON FORMULARY DRUG (Vitamin B Complex [Vitamin B Complex] 1 EACH Capsule) PO SCH (09:00)
[2023-05-11] MEDS ORDERED: NON FORMULARY DRUG (Turmeric Root Extract [Turmeric] 500 MG Capsule) PO SCH (09:00)
--- NOTE | 2023-05-11 09:44 | P.CONS ---
History of Present Illness - Reason for Consult Consult date: 05/11/23 - History of Present Illness Tereza Greene, is a 72-year-old female who presented to [facility] emergency room with a chief complaint of abdominal pain. Patient describes severe pain that started in the periumbilical area and then was more located to the right lower quadrant. She was evaluated in the emergency room vital examination on presentation revealed a temperature of 97.3 pulse 93 respiration 16 blood pressure 194/98 pulse ox 98% on room air Laboratory data revealed a white blood count of 17.5 hemoglobin 14.6 platelet count 225 BUN 15 creatinine 0.55 Testing in the emergency room revealed computed tomography scan of the abdomen and pelvis revealed acute appendicitis with dilated appendix and thickened cruz and inflammatory changes in the area adjacent to the appendix. Patient underwent surgery on 05/10/2023 and had evidence of perforated appendicitis. Patient was admitted to medical floor for further evaluation and treatment, she was started on IV antibiotic Zosyn. Past Medical History Past Medical History: COPD, Diabetes Mellitus, GERD/Reflux, Hyperlipidemia, Hypertension Additional Past Medical History / Comment(s): Borderline type 2 , RT EYE GLAUCOMA. PAST DAYCARE ASSISTANT HISTORY: She has no history of STDs. History of Any Multi-Drug Resistant Organisms: None Reported Past Surgical History: Breast Surgery, Hysterectomy Additional Past Surgical History / Comment(s): Right breast biopsy. Vaginal hysterectomy 1980. colonoscopy 2016. Past Anesthesia/Blood Transfusion Reactions: No Reported Reaction Smoking Status: Former smoker - Past Family History Father Family Medical History: Coronary Artery Disease (CAD), Diabetes Mellitus Mother Family Medical History: Myocardial Infarction ([place]) Additional Family Medical History / Comment(s): 2 aunts had breast cancer. Sister(s) Family Medical History: Coronary Artery Disease (CAD) Brother(s) Family Medical History: Coronary Artery Disease (CAD) Medications and Allergies Home Medications Medication Instructions Recorded Confirmed Type Aspirin [Children's Aspirin] 81 mg PO DAILY 11/05/17 05/10/23 History cloNIDine HCL [Catapres] 0.1 mg PO BID 11/05/17 05/10/23 History lisinopriL [Zestril] 20 mg PO DAILY 11/05/17 05/10/23 History FLUoxetine HCL [PROzac] 20 mg PO DAILY 01/26/19 05/10/23 History Turmeric Root Extract [Turmeric] 500 mg PO DAILY 01/26/19 05/10/23 History Calcium W/Vitamin D3(Unknown Dose) 1 tab PO DAILY 05/10/23 05/10/23 History Melatonin 3 mg PO HS 05/10/23 05/10/23 History Pravastatin Sodium [Pravachol] 20 mg PO HS 05/10/23 05/10/23 History Timolol 0.5% Ophth Soln [Timoptic 1 drop RIGHT EYE BID 05/10/23 05/10/23 History 0.5% Ophth Soln] Tums Extra Strength 400mg 400 mg PO BID 05/10/23 05/10/23 History Vit A/Vit C/Vit E/Zinc/Copper 1 cap PO DAILY 05/10/23 05/10/23 History [ICAPS SOFTGEL] Vitamin B Complex 1 cap PO DAILY 05/10/23 05/10/23 History Zinc Gluconate [Zinc] 50 mg PO DAILY 05/10/23 05/10/23 History Allergies Allergy/AdvReac Type Severity Reaction Status Date / Time sulfamethoxazole Allergy Severe Rash/Hives Verified 05/10/23 13:25 [From Bactrim] all over body trimethoprim [From Bactrim] Allergy Severe Rash/Hives Verified 05/10/23 13:25 all over body Physical Exam Vitals: Vital Signs Temp Pulse Pulse Pulse Resp BP BP 05/11/23 07:00 98.0 F 81 16 05/11/23 02:50 98.3 F 80 16 121/54 05/11/23 02:21 73 81 17 05/10/23 21:51 73 81 17 05/10/23 18:56 98.6 F 81 17 120/57 05/10/23 18:15 82 16 132/76 05/10/23 17:45 79 143/70 05/10/23 17:30 68 124/57 05/10/23 17:15 77 135/65 05/10/23 17:01 98.9 F 73 18 130/70 05/10/23 17:00 71 130/70 05/10/23 16:45 98.9 F 71 16 139/78 05/10/23 16:34 75 16 141/71 05/10/23 16:23 81 16 125/59 05/10/23 16:08 68 16 116/50 05/10/23 15:53 97.3 F L 71 12 127/56 05/10/23 13:25 92 18 139/60 05/10/23 12:01 78 18 128/63 05/10/23 10:23 85 17 128/66 05/10/23 09:39 97.3 F L 93 16 194/98 BP Pulse Ox 05/11/23 07:00 134/68 94 L 05/11/23 02:50 96 05/11/23 02:21 05/10/23 21:51 05/10/23 18:56 93 L 05/10/23 18:15 93 L 05/10/23 17:45 94 L 05/10/23 17:30 94 L 05/10/23 17:15 94 L 05/10/23 17:01 95 05/10/23 17:00 96 05/10/23 16:45 94 L 05/10/23 16:34 95 05/10/23 16:23 95 05/10/23 16:08 95 05/10/23 15:53 95 05/10/23 13:25 91 L 05/10/23 12:01 95 05/10/23 10:23 98 05/10/23 09:39 98 Intake and Output 05/10/23 05/11/23 05/11/23 22:59 06:59 14:59 Intake Total 200 Balance 200 Intake: IV 200 Other: Voiding Method Toilet Toilet # Voids 1 2 Weight 97.522 kg In general patient is alert and oriented x 3 in no distress HEENT head normocephalic and atraumatic Neck is supple no JVD no goiter no lymphadenopathy no carotid bruit Chest examination is clear to auscultation no crackles no wheezing Cardiac exam reveals regular heart sounds S1 and S2 no gallops no murmurs Abdomen is soft with generalized tenderness, no organomegaly, normal bowel sounds Extremity exam reveals no edema no cyanosis or clubbing Neurological examination reveals no gross focal deficits Results CBC & Chem 7: 05/10/23 09:58 05/10/23 09:58 Labs: Abnormal Lab Results - Last 24 Hours (Table) 05/10/23 05/10/23 05/10/23 Range/Units 09:58 09:58 09:58 WBC 17.5 H (3.8-10.6) k/uL Neutrophils # 15.5 H (1.3-7.7) k/uL PT 9.9 L (10.0-12.5) sec Sodium (137-145) mmol/L Glucose (74-99) mg/dL POC Glucose (mg/dL) (70-110) mg/dL Urine Appearance Cloudy H (Clear) Ur Specific [place] >1.050 H (1.001-1.035) Urine Protein Trace H (Negative) Ur Squamous Epith Cells 38 H (0-4) /hpf Urine Mucus Few H (None) /hpf 05/10/23 05/10/23 Range/Units 09:58 15:56 WBC (3.8-10.6) k/uL Neutrophils # (1.3-7.7) k/uL PT (10.0-12.5) sec Sodium 134 L (137-145) mmol/L Glucose 141 H (74-99) mg/dL POC Glucose (mg/dL) 125 H (70-110) mg/dL Urine Appearance (Clear) Ur Specific [place] (1.001-1.035) Urine Protein (Negative) Ur Squamous Epith Cells (0-4) /hpf Urine Mucus (None) /hpf Assessment and Plan Plan: Acute perforated appendicitis Underlying history of hypertension Underlying history of gastroesophageal reflux disease Underlying history of borderline diabetes mellitus will check hemoglobin A1c Underlying history of hyperlipidemia Previous history of smoking At this time patient is post appendectomy Home medications reviewed and reordered She is maintained on IV Zosyn For DVT prophylaxis subcu Lovenox For GI prophylaxis Protonix Will follow closely
[2023-05-11] MEDS: cloNIDine HCL 0.1 MG TAB PO SCH ×2 (10:04→20:57)
[2023-05-11] MEDS: ASPIRIN 81 MG PO SCH ×2 (10:04→10:55)
[2023-05-11] MEDS: FLUoxetine HCL 20 MG CAP PO SCH (10:04)
[2023-05-11] MEDS: CALCIUM CARB-VIT D 500 MG-5 MCG TAB PO SCH (10:04)
[2023-05-11] MEDS: CALCIUM CARBONATE 500 MG CHEWABLE PO SCH ×2 (10:04→20:57)
[2023-05-11] MEDS: lisinopriL 20 MG TAB PO SCH (10:05)
[2023-05-11 10:12] LABS: Glucose,Whole Blood 128 mg/dL (70-110)
[2023-05-11 10:25] LABS: Basophils # (A) 0.01 X 10*3/uL (0.00-0.10); Basophils % (A) 0.1 %; Eosinophils # (A) 0 X 10*3/uL (0.04-0.35); Eosinophils % (A) 0 %; HCT 37.5 % (37.2-46.3); HGB 11.8 g/dL (12.0-15.0); Lymphocytes # (A) 0.71 X 10*3/uL (0.90-5.00); Lymphocytes % (A) 4.1 %; MCH 29.2 pg (27.0-32.0); MCHC 31.5 g/dL (32.0-37.0); MCV 92.8 FL (80.0-97.0); Mean Platelet Volume 10.2 FL (9.5-12.2); Monocytes # (A) 1.12 X 10*3/uL (0.20-1.00); Monocytes % (A) 6.4 %; NRBC Per 100 WBC 0 X 10*3/uL (0.00-0.01); Neutrophils # (A) 15.46 X 10*3/uL (1.80-7.70); Neutrophils % (A) 88.9 %; Platelet Count 188 X 10*3/uL (140-440); RBC 4.04 X 10*6/uL (4.10-5.20); RDW 13.9 % (11.5-14.5); WBC 17.39 X 10*3/uL (4.50-10.00)
[2023-05-11 10:44] LABS: Blood Urea Nitrogen 16.1 mg/dL (9.0-27.0); Calcium 9.2 mg/dL (8.7-10.3); Carbon Dioxide 23.1 mmol/L (21.6-31.8); Chloride 104 mmol/L (96-109); Glucose 142 mg/dL (70-110); Potassium 4.2 mmol/L (3.5-5.5); Sodium 138 mmol/L (135-145)
[2023-05-11] MEDS: TIMOLOL 0.5% OPHTH DROPS 5 ML BTL RIGHT EYE SCH ×2 (10:55→20:57)
[2023-05-11] MEDS: VIT A,C & E-LUTEIN-MINERALS 1 EACH TAB PO SCH (10:56)
[2023-05-11] MEDS: ZINC SULFATE 220 MG CAP PO SCH (10:56)
--- NOTE | 2023-05-11 11:57 | P.PN ---
Subjective Progress Note Date: 05/11/23 Principal diagnosis: Acute appendicitis Patient doing well today. Pain more diffuse but less than it was preoperatively. She is afebrile. She remains NPO. She is hungry. Denies nausea or vomiting. She has ambulated. Objective - Vital Signs Vital signs: Vital Signs Temp 98.0 F 05/11/23 07:00 Pulse 81 05/11/23 08:00 Resp 16 05/11/23 08:00 BP 134/68 05/11/23 07:00 Pulse Ox 94 L 05/11/23 07:00 FiO2 Intake & Output 05/10/23 05/11/23 05/11/23 18:59 06:59 18:59 Intake Total 900 Output Total 100 Balance 800 Weight 97.522 kg Intake: IV 900 Output: Estimated Blood Loss 100 Other: Voiding Method Toilet Toilet # Voids 2 - Exam Abdomen: Soft, nondistended, mild tenderness, laparoscopic incisions clean and dry - Labs CBC & Chem 7: 05/11/23 06:12 05/11/23 06:12 Labs: Abnormal Lab Results - Last 24 Hours (Table) 05/10/23 05/10/23 05/11/23 Range/Units 09:58 15:56 06:12 WBC 17.39 H (4.50-10.00) X 10*3/uL RBC 4.04 L (4.10-5.20) X 10*6/uL Hgb 11.8 L (12.0-15.0) g/dL MCHC 31.5 L (32.0-37.0) g/dL Immature Gran # 0.09 H (0.00-0.04) X 10*3/uL Neutrophils # 15.46 H (1.80-7.70) X 10*3/uL Lymphocytes # 0.71 L (0.90-5.00) X 10*3/uL Monocytes # 1.12 H (0.20-1.00) X 10*3/uL Eosinophils # 0 L (0.04-0.35) X 10*3/uL BUN/Creatinine Ratio (12.00-20.00) Ratio Glucose (70-110) mg/dL POC Glucose (mg/dL) 125 H (70-110) mg/dL Urine Appearance Cloudy H (Clear) Ur Specific [place] >1.050 H (1.001-1.035) Urine Protein Trace H (Negative) Ur Squamous Epith Cells 38 H (0-4) /hpf Urine Mucus Few H (None) /hpf 05/11/23 05/11/23 Range/Units 06:12 10:10 WBC (4.50-10.00) X 10*3/uL RBC (4.10-5.20) X 10*6/uL Hgb (12.0-15.0) g/dL MCHC (32.0-37.0) g/dL Immature Gran # (0.00-0.04) X 10*3/uL Neutrophils # (1.80-7.70) X 10*3/uL Lymphocytes # (0.90-5.00) X 10*3/uL Monocytes # (0.20-1.00) X 10*3/uL Eosinophils # (0.04-0.35) X 10*3/uL BUN/Creatinine Ratio 23.00 H (12.00-20.00) Ratio Glucose 142 H (70-110) mg/dL POC Glucose (mg/dL) 128 H (70-110) mg/dL Urine Appearance (Clear) Ur Specific [place] (1.001-1.035) Urine Protein (Negative) Ur Squamous Epith Cells (0-4) /hpf Urine Mucus (None) /hpf Assessment and Plan (1) Acute appendicitis Narrative/Plan: 72-year-old female doing well after laparoscopic appendectomy for appendicitis with small abscess and perforation. Continue antibiotics. Advance diet as tolerated. Ambulate. Possible discharge tomorrow. Current Visit: Yes Status: Acute Code(s): K35.80 - UNSPECIFIED ACUTE APPENDICITIS SNOMED Code(s): 99241908
[2023-05-11] MEDS: HEPARIN SODIUM,PORCINE 5,000 UNIT/ML 1 ML VIAL SQ SCH (16:42)
[2023-05-11] MEDS: HYDROcodone/APAP 5-325MG 1 EACH TAB PO PRN ×2 (17:16→22:41)
[2023-05-11] MEDS: PRAVASTATIN SODIUM 20 MG TAB PO SCH (20:57)
[2023-05-11] MEDS: MELATONIN 3 MG TABLET PO SCH (20:57)
[2023-05-12] MEDS: HEPARIN SODIUM,PORCINE 5,000 UNIT/ML 1 ML VIAL SQ SCH ×4 (00:46→23:22)
[2023-05-12] MEDS: PIPERACILLIN-TAZOBACTAM 3.375 GM in SODIUM CHLORIDE 0.9% 100 ML IVPB SCH ×4 (00:47→23:29)
[2023-05-12] MEDS: SODIUM CHLORIDE 0.9% 1,000 ML IV SCH ×4 (05:24→09:08)
[2023-05-12] MEDS: HYDROcodone/APAP 5-325MG 1 EACH TAB PO PRN (06:03)
[2023-05-12] MEDS: VIT A,C & E-LUTEIN-MINERALS 1 EACH TAB PO SCH (08:04)
[2023-05-12] MEDS: CALCIUM CARBONATE 500 MG CHEWABLE PO SCH ×2 (08:04→21:07)
[2023-05-12] MEDS: ZINC SULFATE 220 MG CAP PO SCH (08:04)
[2023-05-12] MEDS: FLUoxetine HCL 20 MG CAP PO SCH (08:04)
[2023-05-12] MEDS: CALCIUM CARB-VIT D 500 MG-5 MCG TAB PO SCH (08:05)
[2023-05-12] MEDS: TIMOLOL 0.5% OPHTH DROPS 5 ML BTL RIGHT EYE SCH ×2 (08:14→21:08)
[2023-05-12] MEDS: lisinopriL 20 MG TAB PO SCH (08:15)
[2023-05-12] MEDS: cloNIDine HCL 0.1 MG TAB PO SCH ×2 (08:15→21:07)
[2023-05-12 08:31] LABS: Basophils # (A) 0.03 X 10*3/uL (0.00-0.10); Basophils % (A) 0.2 %; Eosinophils # (A) 0.04 X 10*3/uL (0.04-0.35); Eosinophils % (A) 0.3 %; HCT 37.5 % (37.2-46.3); HGB 11.5 g/dL (12.0-15.0); Lymphocytes # (A) 0.82 X 10*3/uL (0.90-5.00); Lymphocytes % (A) 6.4 %; MCHC 30.7 g/dL (32.0-37.0); MCV 94.5 FL (80.0-97.0); Mean Platelet Volume 10.7 FL (9.5-12.2); Monocytes # (A) 1.18 X 10*3/uL (0.20-1.00); Monocytes % (A) 9.3 %; NRBC Per 100 WBC 0 X 10*3/uL (0.00-0.01); Neutrophils # (A) 10.62 X 10*3/uL (1.80-7.70); Neutrophils % (A) 83.4 %; Platelet Count 192 X 10*3/uL (140-440); RBC 3.97 X 10*6/uL (4.10-5.20); RDW 13.9 % (11.5-14.5); WBC 12.74 X 10*3/uL (4.50-10.00)
[2023-05-12 08:48] LABS: BUN/Creat Ratio 23.33 Ratio (12.00-20.00); Carbon Dioxide 27.5 mmol/L (21.6-31.8); Chloride 104 mmol/L (96-109); Glucose 117 mg/dL (70-110); Potassium 4.1 mmol/L (3.5-5.5); Sodium 139 mmol/L (135-145)
[2023-05-12 08:49] LABS: ALT 21 U/L (8-44); AST 21 U/L (13-35); Albumin 3.7 g/dL (3.8-4.9); Albumin/Globulin Ratio 1.48 Ratio (1.60-3.17); Alkaline Phosphatase 80 U/L (41-126); Calcium 9.2 mg/dL (8.7-10.3); Globulin 2.5 g/dL (1.6-3.3); Total Bilirubin 0.6 mg/dL (0.3-1.2); Total Protein 6.2 g/dL (6.2-8.2)
[2023-05-12] MEDS ORDERED: ENOXAPARIN 40 MG/0.4 ML SYRINGE SQ SCH (09:00)
[2023-05-12] MEDS: PANTOPRAZOLE 40 MG/10 ML VIAL IV SCH (09:08)
[2023-05-12] MEDS: KETOROLAC 15 MG/ML 1 ML VIAL IVP SCH ×3 (10:20→21:07)
--- NOTE | 2023-05-12 12:17 | P.PN ---
Subjective Progress Note Date: 05/12/23 CHIEF COMPLAINT: Acute appendicitis HISTORY OF PRESENT ILLNESS: Postop day #2 status post laparoscopic appendectomy for perforated appendicitis. Patient continues to have intermittent episodes of abdominal pain rating 8 out of 10. She has not had a very small amount of flatus. She is sitting up bedside chair denies any nausea or vomiting. Urinating without difficulty. Afebrile. Elevated BP. WBC 17 down to 12.74 Hgb 11.5 platelets 192 sodium is 139 potassium 4.1 creatinine 0.6 PHYSICAL EXAM: VITAL SIGNS: Reviewed. GENERAL: Well-developed in no acute distress. HEENT: No sclera icterus. Extraocular movements grossly intact. Moist buccal mucosa. Head is atraumatic, normocephalic. ABDOMEN: Soft. Nondistended. Tender at incision sites and right lower abdomen. Incision sites clean dry and intact NEUROLOGIC: Alert and oriented. Cranial nerves II through XII grossly intact. ASSESSMENT: 1. Acute appendicitis with small abscess and perforation PLAN: -Toradol added for pain management -Add abdominal binder -Continue ice as needed -Advance diet as tolerated -Continue antibiotics -Decrease IV fluids to 75 mL/h -GI prophylaxis Protonix and DVT prophylaxis subcu heparin Physician Roll Over Press Operator note has been reviewed by physician. Signing provider agrees with the documented findings, assessment, and plan of care. I have personally seen and examined the patient, reviewed the SAWMILLING OPERATOR /PAs history, exam and MDM and agree with the assessment and plan as written. Based on total visit time, I have performed more than 50% of the visit. As above: Patient still having mild discomfort. Tolerating diet. Not getting around much. Will ambulate more. Add Toradol. Continue antibiotics today. Possible discharge later today or tomorrow. Objective - Vital Signs Vital signs: Vital Signs Temp 97.8 F 05/12/23 07:41 Pulse 90 05/12/23 08:00 Resp 16 05/12/23 08:00 BP 174/70 05/12/23 07:41 Pulse Ox 95 05/12/23 07:41 FiO2 Intake & Output 05/11/23 05/12/23 05/12/23 18:59 06:59 18:59 Other: Voiding Method Toilet Toilet Toilet # Voids 3 1 - Labs CBC & Chem 7: 05/12/23 06:14 05/12/23 06:14 Labs: Abnormal Lab Results - Last 24 Hours (Table) 05/11/23 05/12/23 05/12/23 Range/Units 06:12 06:14 06:14 WBC 12.74 H (4.50-10.00) X 10*3/uL RBC 3.97 L (4.10-5.20) X 10*6/uL Hgb 11.5 L (12.0-15.0) g/dL MCHC 30.7 L (32.0-37.0) g/dL Immature Gran # 0.05 H (0.00-0.04) X 10*3/uL Neutrophils # 10.62 H (1.80-7.70) X 10*3/uL Lymphocytes # 0.82 L (0.90-5.00) X 10*3/uL Monocytes # 1.18 H (0.20-1.00) X 10*3/uL BUN/Creatinine Ratio 23.33 H (12.00-20.00) Ratio Glucose 117 H (70-110) mg/dL Hemoglobin A1c 6.2 H (<=6.0) % Albumin 3.7 L (3.8-4.9) g/dL Albumin/Globulin Ratio 1.48 L (1.60-3.17) Ratio Microbiology - Last 24 Hours (Table) 05/10/23 13:15 Blood Culture - Preliminary Blood 05/10/23 13:00 Blood Culture - Preliminary Blood
--- NOTE | 2023-05-12 13:34 | P.PN ---
Subjective Progress Note Date: 05/12/23 Tereza Greene, is a 72-year-old female who presented to [facility] emergency room with a chief complaint of abdominal pain. Patient describes severe pain that started in the periumbilical area and then was more located to the right lower quadrant. She was evaluated in the emergency room vital examination on presentation revealed a temperature of 97.3 pulse 93 respiration 16 blood pressure 194/98 pulse ox 98% on room air Laboratory data revealed a white blood count of 17.5 hemoglobin 14.6 platelet count 225 BUN 15 creatinine 0.55 Testing in the emergency room revealed computed tomography scan of the abdomen and pelvis revealed acute appendicitis with dilated appendix and thickened cruz and inflammatory changes in the area adjacent to the appendix. Patient underwent surgery on 05/10/2023 and had evidence of perforated appendicitis. Patient was admitted to medical floor for further evaluation and treatment, she was started on IV antibiotic Zosyn. On 05/12/2023 patient was seen and examined on the medical floor, she is alert and oriented 3 in no apparent distress she is sitting up in chair she is still complaining of abdominal discomfort and complaining of shortness of breath and occasional cough otherwise she denies any complaints, there is no fever or chills no headache or dizziness no chest pain no nausea or vomiting no diarrhea and no urinary symptoms. Temperature is 90.8 heart rate 79 respiration 16 blood pressure 136/74 pulse ox 94% on room air white blood count 12.74 down from 17.39 yesterday hemoglobin 11.5 platelet count 192 BUN 14 creatinine 0.6 patient is improving gradually continue IV antibiotics continue current care increase diet gradually will follow in a.m.. Objective - Vital Signs Vital signs: Vital Signs Temp 97.8 F 05/12/23 07:41 Pulse 90 05/12/23 08:00 Resp 16 05/12/23 08:00 BP 174/70 05/12/23 07:41 Pulse Ox 95 05/12/23 07:41 FiO2 Intake & Output 05/11/23 05/12/23 05/12/23 18:59 06:59 18:59 Other: Voiding Method Toilet Toilet Toilet # Voids 3 1 - Exam In general patient is alert and oriented x 3 in no distress HEENT head normocephalic and atraumatic Neck is supple no JVD no goiter no lymphadenopathy no carotid bruit Chest examination is clear to auscultation no crackles no wheezing Cardiac exam reveals regular heart sounds S1 and S2 no gallops no murmurs Abdomen is soft with generalized tenderness, no organomegaly, normal bowel sounds Extremity exam reveals no edema no cyanosis or clubbing Neurological examination reveals no gross focal deficits - Labs CBC & Chem 7: 05/12/23 06:14 05/12/23 06:14 Labs: Abnormal Lab Results - Last 24 Hours (Table) 05/11/23 05/11/23 05/11/23 Range/Units 06:12 06:12 06:12 WBC 17.39 H (4.50-10.00) X 10*3/uL RBC 4.04 L (4.10-5.20) X 10*6/uL Hgb 11.8 L (12.0-15.0) g/dL MCHC 31.5 L (32.0-37.0) g/dL Immature Gran # 0.09 H (0.00-0.04) X 10*3/uL Neutrophils # 15.46 H (1.80-7.70) X 10*3/uL Lymphocytes # 0.71 L (0.90-5.00) X 10*3/uL Monocytes # 1.12 H (0.20-1.00) X 10*3/uL Eosinophils # 0 L (0.04-0.35) X 10*3/uL BUN/Creatinine Ratio 23.00 H (12.00-20.00) Ratio Glucose 142 H (70-110) mg/dL POC Glucose (mg/dL) (70-110) mg/dL Hemoglobin A1c 6.2 H (<=6.0) % Albumin (3.8-4.9) g/dL Albumin/Globulin Ratio (1.60-3.17) Ratio 05/11/23 05/12/23 05/12/23 Range/Units 10:10 06:14 06:14 WBC 12.74 H (4.50-10.00) X 10*3/uL RBC 3.97 L (4.10-5.20) X 10*6/uL Hgb 11.5 L (12.0-15.0) g/dL MCHC 30.7 L (32.0-37.0) g/dL Immature Gran # 0.05 H (0.00-0.04) X 10*3/uL Neutrophils # 10.62 H (1.80-7.70) X 10*3/uL Lymphocytes # 0.82 L (0.90-5.00) X 10*3/uL Monocytes # 1.18 H (0.20-1.00) X 10*3/uL Eosinophils # (0.04-0.35) X 10*3/uL BUN/Creatinine Ratio 23.33 H (12.00-20.00) Ratio Glucose 117 H (70-110) mg/dL POC Glucose (mg/dL) 128 H (70-110) mg/dL Hemoglobin A1c (<=6.0) % Albumin 3.7 L (3.8-4.9) g/dL Albumin/Globulin Ratio 1.48 L (1.60-3.17) Ratio Microbiology - Last 24 Hours (Table) 05/10/23 13:15 Blood Culture - Preliminary Blood 05/10/23 13:00 Blood Culture - Preliminary Blood Assessment and Plan Plan: Acute perforated appendicitis Underlying history of hypertension Underlying history of gastroesophageal reflux disease Underlying history of borderline diabetes mellitus will check hemoglobin A1c Underlying history of hyperlipidemia Previous history of smoking At this time patient is post appendectomy Home medications reviewed and reordered She is maintained on IV Zosyn For DVT prophylaxis subcu Lovenox For GI prophylaxis Protonix Will follow closely
--- NOTE | 2023-05-12 20:34 | XR ---
EXAM: XR chest 1V portable CLINICAL INDICATION:Female, 72 years old with history of dyspnea; [facility] COMPARISON: 02/16/2020 TECHNIQUE: Chest single view. FINDINGS: Slight rotation limits assessment. Lines/tubes/devices: None. Cardiomediastinum: Cardiac silhouette appears mildly enlarged Unremarkable mediastinal silhouette. Vasculature: No increased pulmonary vasculature. Lungs/pleura: Bibasilar linear atelectasis. No consolidation, sizeable effusion, or visible pneumothorax. Tiny effu sions cannot be ruled out. Bones/soft tissues: Bony thorax appears grossly intact as seen. Chronic rib deformities. Regional soft tissues appear unr emarkable. Mild asymmetric elevation of the right hemidiaphragm. IMPRESSION: Linear bibasilar atelectasis. Otherwise no acute cardiopulmonary findings.
[2023-05-12] MEDS: MELATONIN 3 MG TABLET PO SCH (21:07)
[2023-05-12] MEDS: PRAVASTATIN SODIUM 20 MG TAB PO SCH (21:07)
[2023-05-13] MEDS: SODIUM CHLORIDE 0.9% 1,000 ML IV SCH (00:13)
[2023-05-13] MEDS: KETOROLAC 15 MG/ML 1 ML VIAL IVP SCH ×3 (03:44→17:07)
[2023-05-13 09:02] LABS: Basophils # (A) 0.03 X 10*3/uL (0.00-0.10); Basophils % (A) 0.3 %; Eosinophils # (A) 0.07 X 10*3/uL (0.04-0.35); Eosinophils % (A) 0.7 %; HCT 33.8 % (37.2-46.3); HGB 10.6 g/dL (12.0-15.0); Lymphocytes # (A) 0.89 X 10*3/uL (0.90-5.00); Lymphocytes % (A) 8.5 %; MCH 29.5 pg (27.0-32.0); MCHC 31.4 g/dL (32.0-37.0); MCV 94.2 FL (80.0-97.0); Mean Platelet Volume 10.7 FL (9.5-12.2); Monocytes # (A) 1.09 X 10*3/uL (0.20-1.00); Monocytes % (A) 10.4 %; NRBC Per 100 WBC 0 X 10*3/uL (0.00-0.01); Neutrophils # (A) 8.36 X 10*3/uL (1.80-7.70); Neutrophils % (A) 79.8 %; Platelet Count 203 X 10*3/uL (140-440); RBC 3.59 X 10*6/uL (4.10-5.20); RDW 13.6 % (11.5-14.5); WBC 10.47 X 10*3/uL (4.50-10.00)
[2023-05-13 09:34] LABS: ALT 22 U/L (8-44); AST 18 U/L (13-35); Albumin 3.4 g/dL (3.8-4.9); Albumin/Globulin Ratio 1.48 Ratio (1.60-3.17); Alkaline Phosphatase 78 U/L (41-126); BUN/Creat Ratio 29.17 Ratio (12.00-20.00); Blood Urea Nitrogen 17.5 mg/dL (9.0-27.0); Calcium 9.1 mg/dL (8.7-10.3); Carbon Dioxide 26.4 mmol/L (21.6-31.8); Chloride 104 mmol/L (96-109); Globulin 2.3 g/dL (1.6-3.3); Glucose 154 mg/dL (70-110); Sodium 139 mmol/L (135-145); Total Bilirubin 0.3 mg/dL (0.3-1.2); Total Protein 5.7 g/dL (6.2-8.2)
[2023-05-13] MEDS: PIPERACILLIN-TAZOBACTAM 3.375 GM in SODIUM CHLORIDE 0.9% 100 ML IVPB SCH ×2 (10:48→17:06)
[2023-05-13] MEDS: CALCIUM CARBONATE 500 MG CHEWABLE PO SCH (10:50)
[2023-05-13] MEDS: ZINC SULFATE 220 MG CAP PO SCH (10:50)
[2023-05-13] MEDS: FLUoxetine HCL 20 MG CAP PO SCH (10:50)
[2023-05-13] MEDS: ASPIRIN 81 MG PO SCH (10:51)
[2023-05-13] MEDS: HEPARIN SODIUM,PORCINE 5,000 UNIT/ML 1 ML VIAL SQ SCH ×2 (10:51→17:06)
[2023-05-13] MEDS: lisinopriL 20 MG TAB PO SCH (10:51)
[2023-05-13] MEDS: PANTOPRAZOLE 40 MG/10 ML VIAL IV SCH (10:51)
[2023-05-13] MEDS: CALCIUM CARB-VIT D 500 MG-5 MCG TAB PO SCH (10:51)
[2023-05-13] MEDS: TIMOLOL 0.5% OPHTH DROPS 5 ML BTL RIGHT EYE SCH (10:52)
[2023-05-13] MEDS: VIT A,C & E-LUTEIN-MINERALS 1 EACH TAB PO SCH (10:52)
[2023-05-13] MEDS: cloNIDine HCL 0.1 MG TAB PO SCH (11:08)
[2023-05-13 13:37] VITALS: BP 160/78; PULSE 81; RESP 18; TEMP 97.9
--- NOTE | 2023-05-13 14:30 | P.DS ---
Providers Date of admission: 05/10/23 13:04 Expected date of discharge: 05/13/23 Attending physician: Yousif Gonzalez, Consults: 05/10/23 13:03 Consult Physician Routine Consulting Provider: Katharine Bosch Consult Reason/Comments: medical y Do you want consulting provider notified?: Yes 05/12/23 07:45 Consult Physician Routine Consulting Provider: Madi Metzger Consult Reason/Comments: appendicitis Do you want consulting provider notified?: Already Contacted Primary care physician: Katharine Bosch Hospital Course: Discharge diagnosis 1. Acute appendicitis with small abscess and perforation Hospital course This is a 72-year-old female who presented with right lower quadrant abdominal pain. CT scan of abdomen had shown evidence of acute appendicitis. Patient is status post laparoscopic appendectomy for acute appendicitis with small abscess and perforation. Patient is tolerating diet. Her pain is controlled. She is having flatus. She has been up and ambulating. She is afebrile. She is stable for discharge. She will be discharged home with oral antibiotics. Incision sites clean dry and intact. Please refer to chart for any further details. Physician Machine Preservative Filler note has been reviewed by physician. Signing provider agrees with the documented findings, assessment, and plan of care. Patient Condition at Discharge: Stable Plan - Discharge Summary Discharge Rx Participant: Yes New Discharge Prescriptions: New Amoxic-Pot Clav 875-125Mg [Augmentin 875-125] 1 tab PO Q12HR 5 Days #10 tab Docusate [Colace] 100 mg PO BID #30 capsule Ibuprofen [Motrin] 600 mg PO Q8HR PRN #30 tab PRN Reason: Pain HYDROcodone/APAP 5-325MG [[place] 5-325] 1 tab PO Q6HR PRN 3 Days #12 tab PRN Reason: Pain Continue cloNIDine HCL [Catapres] 0.1 mg PO BID lisinopriL [Zestril] 20 mg PO DAILY Aspirin [Children's Aspirin] 81 mg PO DAILY FLUoxetine HCL [PROzac] 20 mg PO DAILY Vit A/Vit C/Vit E/Zinc/Copper [ICAPS SOFTGEL] 1 cap PO DAILY Calcium W/Vitamin D3(Unknown Dose) 1 tab PO DAILY Tums Extra Strength 400mg 400 mg PO BID Zinc Gluconate [Zinc] 50 mg PO DAILY Pravastatin Sodium [Pravachol] 20 mg PO HS Vitamin B Complex 1 cap PO DAILY Melatonin 3 mg PO HS Timolol 0.5% Ophth Soln [Timoptic 0.5% Ophth Soln] 1 drop RIGHT EYE BID Discontinued Turmeric Root Extract [Turmeric] 500 mg PO DAILY Discharge Medication List Aspirin [Children's Aspirin] 81 mg PO DAILY 11/05/17 [History] cloNIDine HCL [Catapres] 0.1 mg PO BID 11/05/17 [History] lisinopriL [Zestril] 20 mg PO DAILY 11/05/17 [History] FLUoxetine HCL [PROzac] 20 mg PO DAILY 01/26/19 [History] Calcium W/Vitamin D3(Unknown Dose) 1 tab PO DAILY 05/10/23 [History] Melatonin 3 mg PO HS 05/10/23 [History] Pravastatin Sodium [Pravachol] 20 mg PO HS 05/10/23 [History] Timolol 0.5% Ophth Soln [Timoptic 0.5% Ophth Soln] 1 drop RIGHT EYE BID 05/10/23 [History] Tums Extra Strength 400mg 400 mg PO BID 05/10/23 [History] Vit A/Vit C/Vit E/Zinc/Copper [ICAPS SOFTGEL] 1 cap PO DAILY 05/10/23 [History] Vitamin B Complex 1 cap PO DAILY 05/10/23 [History] Zinc Gluconate [Zinc] 50 mg PO DAILY 05/10/23 [History] Amoxic-Pot Clav 875-125Mg [Augmentin 875-125] 1 tab PO Q12HR 5 Days #10 tab 05/13/23 [Rx] Docusate [Colace] 100 mg PO BID #30 capsule 05/13/23 [Rx] HYDROcodone/APAP 5-325MG [[place] 5-325] 1 tab PO Q6HR PRN 3 Days #12 tab 05/13/23 [Rx] Ibuprofen [Motrin] 600 mg PO Q8HR PRN #30 tab 05/13/23 [Rx] Follow up Appointment(s)/Referral(s): Katharine Bosch MD [Primary Care Provider] - 1-2 days Madi Metzger MD [Medical Doctor] - 1 Week Activity/Diet/Wound Care/Special Instructions: No driving while taking [place] No lifting over 10 pounds You may shower. No soaking or tub baths for 2 weeks Very light activity until you are reevaluated at your follow up appointment with your surgeon Discharge Disposition: HOME SELF-CARE
--- NOTE | 2023-05-13 14:52 | P.PN ---
Subjective Progress Note Date: 05/13/23 Tereza Greene, is a 72-year-old female who presented to [facility] emergency room with a chief complaint of abdominal pain. Patient describes severe pain that started in the periumbilical area and then was more located to the right lower quadrant. She was evaluated in the emergency room vital examination on presentation revealed a temperature of 97.3 pulse 93 respiration 16 blood pressure 194/98 pulse ox 98% on room air Laboratory data revealed a white blood count of 17.5 hemoglobin 14.6 platelet count 225 BUN 15 creatinine 0.55 Testing in the emergency room revealed computed tomography scan of the abdomen and pelvis revealed acute appendicitis with dilated appendix and thickened cruz and inflammatory changes in the area adjacent to the appendix. Patient underwent surgery on 05/10/2023 and had evidence of perforated appendicitis. Patient was admitted to medical floor for further evaluation and treatment, she was started on IV antibiotic Zosyn. On 05/12/2023 patient was seen and examined on the medical floor, she is alert and oriented 3 in no apparent distress she is sitting up in chair she is still complaining of abdominal discomfort and complaining of shortness of breath and occasional cough otherwise she denies any complaints, there is no fever or chills no headache or dizziness no chest pain no nausea or vomiting no diarrhea and no urinary symptoms. Temperature is 90.8 heart rate 79 respiration 16 blood pressure 136/74 pulse ox 94% on room air white blood count 12.74 down from 17.39 yesterday hemoglobin 11.5 platelet count 192 BUN 14 creatinine 0.6 patient is improving gradually continue IV antibiotics continue current care increase diet gradually will follow in a.m.. On 05/13/2023 patient was seen and examined on the medical floor, she is alert and oriented 3 in no apparent distress she is sitting up in chair she is still complaining of abdominal discomfort and complaining of shortness of breath and occasional cough otherwise she denies any complaints, there is no fever or chills no headache or dizziness no chest pain no nausea or vomiting no diarrhea and no urinary symptoms. patient is improving gradually, she was cleared by surgery for discharge, she will be on Augmentin for the next five days, follow up in the office with me on Friday. Objective - Vital Signs Vital signs: Vital Signs Temp 97.9 F 05/13/23 13:30 Pulse 81 05/13/23 13:30 Resp 18 05/13/23 13:30 BP 160/78 05/13/23 13:30 Pulse Ox 95 05/13/23 13:30 FiO2 Intake & Output 05/12/23 05/13/23 05/13/23 18:59 06:59 18:59 Intake Total 118 991 Balance 118 991 Intake: Oral 118 991 Other: Voiding Method Toilet Toilet # Voids 2 2 - Exam In general patient is alert and oriented x 3 in no distress HEENT head normocephalic and atraumatic Neck is supple no JVD no goiter no lymphadenopathy no carotid bruit Chest examination is clear to auscultation no crackles no wheezing Cardiac exam reveals regular heart sounds S1 and S2 no gallops no murmurs Abdomen is soft with generalized tenderness, no organomegaly, normal bowel sounds Extremity exam reveals no edema no cyanosis or clubbing Neurological examination reveals no gross focal deficits - Labs CBC & Chem 7: 05/13/23 05:57 05/13/23 05:57 Labs: Abnormal Lab Results - Last 24 Hours (Table) 05/13/23 05/13/23 Range/Units 05:57 05:57 WBC 10.47 H (4.50-10.00) X 10*3/uL RBC 3.59 L (4.10-5.20) X 10*6/uL Hgb 10.6 L (12.0-15.0) g/dL Hct 33.8 L (37.2-46.3) % MCHC 31.4 L (32.0-37.0) g/dL Neutrophils # 8.36 H (1.80-7.70) X 10*3/uL Lymphocytes # 0.89 L (0.90-5.00) X 10*3/uL Monocytes # 1.09 H (0.20-1.00) X 10*3/uL BUN/Creatinine Ratio 29.17 H (12.00-20.00) Ratio Glucose 154 H (70-110) mg/dL Total Protein 5.7 L (6.2-8.2) g/dL Albumin 3.4 L (3.8-4.9) g/dL Albumin/Globulin Ratio 1.48 L (1.60-3.17) Ratio Microbiology - Last 24 Hours (Table) 05/10/23 13:15 Blood Culture - Preliminary Blood 05/10/23 13:00 Blood Culture - Preliminary Blood Assessment and Plan Plan: Acute perforated appendicitis Underlying history of hypertension Underlying history of gastroesophageal reflux disease Underlying history of borderline diabetes mellitus will check hemoglobin A1c Underlying history of hyperlipidemia Previous history of smoking At this time patient is post appendectomy Home medications reviewed and reordered She is maintained on IV Zosyn For DVT prophylaxis subcu Lovenox For GI prophylaxis Protonix Will follow closely
--- NOTE | 2023-05-14 17:33 | P.PN ---
Progress Note - Text Progress Note Date: 05/14/23 I was contacted yesterday evening by Dr. Ahuja from pathology. Patient's specimen did not show any appendiceal tissue. I knew from my initial signout from Dr. Mcghee that the appendix appeared necrotic. The patient was discharged yesterday afternoon prior to me hearing from pathology. I spoke with Dr. Mcghee today by phone. He was not surprised by the pathology findings given the intraoperative appearance of the area. Apparently he had a discussion with the patient and her family on whether to proceed with open ileocecectomy versus the laparoscopic procedure that was performed. After our discussion he agreed to contact the patient. He spoke with her by phone. Reportedly she is doing well. Patient has an appointment to follow-up with me in the office next week. Will consider follow-up CAT scan at that time.
== END 2023-05-13 17:06 | disposition home or self-care (01) ==
LOC: EC 09:37 → 6NMEDSUR 13:04
PROVIDERS: ADMIT Surgery; ATTEND Surgery
DX: K35.33 Acute appendicitis with perforation, localized peritonitis, and gangrene, with abscess (principal); J44.9 Chronic obstructive pulmonary disease, unspecified; I10 Essential (primary) hypertension; E78.5 Hyperlipidemia, unspecified; R73.03 Prediabetes; K21.9 Gastro-esophageal reflux disease without esophagitis; H40.9 Unspecified glaucoma; F31.9 Bipolar disorder, unspecified; Z79.82 Long term (current) use of aspirin; Z79.899 Other long term (current) drug therapy; Z88.1 Allergy status to other antibiotic agents; Z88.2 Allergy status to sulfonamides; Z87.891 Personal history of nicotine dependence
CPT/HCPCS: 96372 ×3; 96376; 96361; 96374; 96375; 99285; 36415; 93005; 88304; 80053 ×3; 80048; 82150; 83605; 83690; 85025 ×4; 85610; 85730; 81001; 87040; 83036; 71045; 74177; 44970; G0378 ×4; J2543 ×4; J2250; J0330; J1644 ×3; J1100; J2710; J2405; J2001; J3010; J3490; J1170; J1885 ×3; J2704; C9113 ×3; Q9967; J0665

== ENCOUNTER → 2023-05-30 | Outpatient (CLI) | payer MEDICARE ==
[2023-05-30 11:15] LABS: African American GFR (CKD) >90 (>60 ml/min/1.73 sqM); Blood Urea Nitrogen 22 mg/dL (7-17); Non-African American GFR(CKD) >90 (>60 ml/min/1.73 sqM)
--- NOTE | 2023-05-30 12:33 | CT ---
EXAMINATION: CT ABDOMEN AND PELVIS WITH IV CONTRAST DATE OF EXAMINATION: 05/30/2023. COMPARISON: 05/10/2023.. INDICATION: Acute appendicitis. PROCEDURE: Axial CT of the abdomen and pelvis was performed with contrast and sagittal and coronal reformatted images were performed. CT dose lowering techniques were used, to include: automated expos ure control, adjustment for patient size, and/or use of iterative reconstruction. 100 mL of Isovue-30 0 was given intravenously. FINDINGS: LOWER CHEST : The visualized lung bases are clear. There are no pleural or pericardial effusions. ABDOMEN: Liver and Biliary system: Normal. Adrenal glands: Normal. Kidneys and ureters: Normal. Spleen: Normal. Pancreas: Normal. Gallbladder: Normal. Lymph nodes, Peritoneum and mesentery: There is no mesenteric or retroperitoneal lymphadenopathy. Gastrointestinal tract: There are no dilated loops of bowel or free intraperitoneal air. Some mil d thickening of the appendix with some surrounding stranding. The appendix measures up to 1 cm in susie meter. The overall degree inflammatory changes around the appendix is significantly reduced since the previous examination. Aorta/IVC: There is moderate vascular calcification throughout the abdominal aorta without evidence of aneurysmal dilation or dissection. IVC normal. Abdominal wall: Normal. PELVIS: Fluid: There is no free fluid in the pelvis. Lymph Nodes: There is no pelvic or inguinal lymphadenopathy.. Urinary bladder: Normal. BONES: Scattered degenerative disc and facet changes are seen throughout the spine. There is complet e loss of the disc space of L4-5 and L5-S1. Minimal anterolisthesis of L4 and L5 is noted secondary t o degenerative facet arthropathy. ADDITIONAL SIGNIFICANT FINDINGS: None. IMPRESSION: 1. Continued finding of thickened appendix with surrounding inflammation compatible with appendicitis , however the overall inflammatory change is significantly decreased when compared to the previous ex amination. Slight. No acute findings otherwise seen. 2. Additional findings as above.
== END | disposition home or self-care (01) ==
LOC: RADCTMAIN 10:10
PROVIDERS: ATTEND Surgery
DX: K38.8 Other specified diseases of appendix (principal); K35.80 Unspecified acute appendicitis
CPT/HCPCS: 82565; 84520; 74177; 36415; Q9967

== ENCOUNTER → 2023-06-23 | Outpatient (CLI) | payer MEDICARE ==
--- NOTE | 2023-06-24 14:49 | MM ---
Reason for Exam: Screening (asymptomatic). Last mammogram was performed 1 year(s) and 2 month(s) ago. Patient History: Menarche at age 11. First Full-Term at age 16. Hysterectomy at age 30. Postmenopausal. Estrogen for 14 years from age 49 until age 63. Hormonal Contraceptives, starting at age 19 for 10 years. Benign Excisional Biopsy on the right side. Paternal aunt had breast cancer. Paternal aunt had breast cancer. Risk Values: Lala 5 year model risk: 1.5%. NCI Lifetime model risk: 3.5%. Prior Study Comparison: 03/21/2020 Bilateral Screening Mammogram, [facility]. 04/30/2022 Bilateral MG 3D screening mammo w/cad, [facility]. 05/06/2022 Left MG 3D work up w/cad , [facility]. Tissue Density: The breasts are almost entirely fatty. Findings: Analyzed By CAD. There is no suspicious group of microcalcifications or new suspicious mass. Benign-appearing calcifications bilaterally. Overall Assessment: Benign, BI-RAD 2 Management: Screening Mammogram of both breasts in [address] [facility] will attempt to contact patient to return for supplemental views and ultrasound if indicated. Patient should continue monthly self-breast exams. A clinical breast exam by your physician is recommended on an annual basis. This exam should not preclude additional follow-up of suspicious palpable abnormalities. Note on Lala scores and lifetime risk: 1. A Lala score greater than 3% is considered moderate risk. If this is the case, consider specialist referral to assess eligibility for a risk reducing agent. 2. If overall lifetime risk for the development of breast cancer is 20% or higher, the patient may qualify for future screening with alternating mammogram and breast MRI. Electronically signed and approved by: Mak Reyes DO
== END | disposition home or self-care (01) ==
LOC: RADMAMWWP 11:05
PROVIDERS: ATTEND Internal Medicine
DX: Z12.31 Encounter for screening mammogram for malignant neoplasm of breast (principal); Z78.0 Asymptomatic menopausal state; Z80.3 Family history of malignant neoplasm of breast
CPT/HCPCS: 77063; 77067

== ENCOUNTER → 2023-10-23 | Outpatient (CLI) | payer MEDICARE ==
[2023-10-23 14:22] LABS: African American GFR (CKD) >90 (>60 ml/min/1.73 sqM); Blood Urea Nitrogen 18 mg/dL (7-17); Non-African American GFR(CKD) >90 (>60 ml/min/1.73 sqM)
[2023-10-23 15:29] VITALS: BP 155/90; PULSE 85; RESP 16; TEMP 98.1
--- NOTE | 2023-10-23 16:21 | CT ---
EXAMINATION TYPE: CT abdomen pelvis w con CT DLP: 1174.5 mGycm, Automated exposure control for dose reduction was used. DATE OF EXAM: 10/23/2023 3:40 PM COMPARISON: CT abdomen pelvis 09/26/2023, 05/30/2023, 05/10/2023. CLINICAL INDICATION:Female, 73 years old with history of K35.32 AC APPENDICITIS W PERF; acute appendi citis with perf. Priors in PACS TECHNIQUE: Standard CT of the abdomen and pelvis following the administration of 100 cc of Isovue 3 00 IV contrast material and oral contrast. Coronal and sagittal reformats were performed. FINDINGS: LOWER CHEST: Right basilar dependent subsegmental atelectasis. Mild cardiomegaly. ABDOMEN LIVER: Unremarkable GALLBLADDER AND BILE DUCTS: Unremarkable. PANCREAS: Unremarkable. SPLEEN: Unremarkable. ADRENAL GLANDS: Unremarkable. KIDNEYS AND URETERS: No evidence of hydronephrosis or renal calculus. The kidneys enhance symmetrical ly. PELVIS BLADDER: Incompletely distended but grossly unremarkable. REPRODUCTIVE: Uterus is surgically absent versus atrophic. ABDOMEN & PELVIS STOMACH AND BOWEL: Small hiatal hernia. Periampullary duodenal diverticulum redemonstrated. Enteric c ontrast reaches the hepatic flexure. Postsurgical changes identified within the right lower quadrant. Thickened appendix measuring up to 10 mm redemonstrated. There is significantly decreased surroundin g inflammatory changes from prior CT 09/26/2023. Continued thickening of the adjacent fascia. No organ ized fluid collection is identified. Lung segment wall thickening of the proximal to mid small bowel measuring up to 1.3 cm. No surrounding inflammatory changes identified. No evidence of bowel obstruct ion. PERITONEUM: No evidence of pneumoperitoneum or free fluid. VASCULATURE: Mild atherosclerotic calcifications are present throughout the abdominal aorta and its b ranches. No evidence of aortic aneurysm. MUSCULOSKELETAL: No acute osseous abnormalities. Degenerative changes of the pubic symphysis. Bilater al SI joint degenerative changes. Multilevel degenerative changes of the lumbar spine. Nearly grade 2 anterolisthesis of L4 on L5 with partial ankylosis. LYMPH NODES: No evidence for lymphadenopathy. SOFT TISSUE/ABDOMINAL WALL: Unremarkable IMPRESSION: 1. Continued thickening of the appendix with significant decrease in surrounding inflammation from pr ior CT 09/26/2023. Findings suggest improving appendicitis at this time. No surrounding organized flui d collections. Continued clinical surveillance is recommended. 2. Long segment circumferential wall thickening of the proximal to mid small bowel suggesting an infe ctious/inflammatory enteritis.
== END | disposition home or self-care (01) ==
LOC: RADCTMAIN 13:21
PROVIDERS: ATTEND Surgery Plastic and Reconstructive Surgery
DX: K38.8 Other specified diseases of appendix (principal); K35.32 Acute appendicitis with perforation, localized peritonitis, and gangrene, without abscess; K63.89 Other specified diseases of intestine
CPT/HCPCS: 82565; 84520; 74177; 36415; Q9967

== ENCOUNTER 2023-10-29 09:16 | Day surgery (SDC) | payer MEDICARE ==
--- NOTE | 2023-10-29 09:38 | P.GSHP ---
History of Present Illness H&P Date: 10/29/23 CHIEF COMPLAINT: Colon screen HISTORY OF PRESENT ILLNESS: The patient is a 73-year-old female who presents for colon screen. Lower endoscopy was offered for further evaluation and management. PAST MEDICAL HISTORY: Please see list. PAST SURGICAL HISTORY: Please see list. MEDICATIONS: Please see list. ALLERGIES: Please see list. SOCIAL HISTORY: No illicit drug use FAMILY HISTORY: No reports of Crohn disease or ulcerative colitis. REVIEW OF ORGAN SYSTEMS: CONSTITUTIONAL: No reports of fevers or chills. PHYSICAL EXAM: VITAL SIGNS: Stable GENERAL: Well-developed pleasant in no acute distress. HEENT: No scleral icterus. Extraocular movements grossly intact. Moist buccal mucosa. NECK: Supple without lymphadenopathy. CHEST: Unlabored respirations. Equal bilateral excursions. CARDIOVASCULAR: Regular rate and rhythm. Distal 2+ pulses. ABDOMEN: Soft, nontender, nondistended. MUSCULOSKELETAL: No clubbing, cyanosis, or edema. ASSESSMENT: 1. Colon screen. PLAN: 1. Recommend proceeding with a lower endoscopy Past Medical History Past Medical History: COPD, Diabetes Mellitus, GERD/Reflux, Hyperlipidemia, Hypertension Additional Past Medical History / Comment(s): Borderline type 2 , RT EYE GLAUCOM A. PAST AND [employer] HISTORY: She has no history of STDs. History of Any Multi-Drug Resistant Organisms: None Reported Past Surgical History: Appendectomy, Breast Surgery, Hysterectomy Additional Past Surgical History / Comment(s): 09/28/23 ABD WASH FOR PERFORATED APPENDECTOMY. PICC. 05/10/23 APPENDECTOMY. Right breast biopsy. Vaginal hysterectomy 1980. colonoscopy 2016. Past Anesthesia/Blood Transfusion Reactions: No Reported Reaction Past Psychological History: Bipolar, Depression Smoking Status: Former smoker Past Alcohol Use History: None Reported Additional Past Alcohol Use History / Comment(s): Quit smoking in 1996. Past Drug Use History: None Reported - Past Family History Father Family Medical History: Coronary Artery Disease (CAD), Diabetes Mellitus Mother Family Medical History: Myocardial Infarction (ME) Additional Family Medical History / Comment(s): 2 aunts had breast cancer. Sister(s) Family Medical History: Coronary Artery Disease (CAD) Brother(s) Family Medical History: Coronary Artery Disease (CAD) Medications and Allergies Home Medications Medication Instructions Recorded Confirmed Type Aspirin [Children's Aspirin] 81 mg PO DAILY 11/05/17 10/27/23 History cloNIDine HCL [Catapres] 0.1 mg PO BID 11/05/17 10/27/23 History lisinopriL [Zestril] 20 mg PO QAM 11/05/17 10/27/23 History FLUoxetine HCL [PROzac] 20 mg PO QAM 01/26/19 10/27/23 History Melatonin 3 mg PO HS 05/10/23 10/27/23 History Pravastatin Sodium [Pravachol] 20 mg PO HS 05/10/23 10/27/23 History Timolol 0.5% Ophth Soln [Timoptic 1 drop RIGHT EYE BID 05/10/23 10/27/23 History 0.5% Ophth Soln] Vit A/Vit C/Vit E/Zinc/Copper 1 cap PO DAILY 05/10/23 10/27/23 History [ICAPS SOFTGEL] Zinc Gluconate [Zinc] 50 mg PO DAILY 05/10/23 10/27/23 History Calcium Carbonate [Tums Ultra 470 mg PO BID 09/27/23 10/27/23 History Strength] Calcium Carbonate/Vitamin D3 1 tab PO BID 09/27/23 10/27/23 History [Calcium 600 mg-Vit D3 10 mcg (400 Unit)] Turmeric Root Extract [Turmeric] 500 mg PO DAILY 09/27/23 10/27/23 History Ibuprofen [Motrin] 600 mg PO Q8HR PRN #30 tab 10/06/23 10/27/23 Rx metroNIDAZOLE [Flagyl] 500 mg PO TID #42 tab 10/06/23 10/27/23 Rx Allergies Allergy/AdvReac Type Severity Reaction Status Date / Time sulfamethoxazole Allergy Severe Rash/Hives Verified 10/27/23 08:26 [From Bactrim] all over body trimethoprim [From Bactrim] Allergy Severe Rash/Hives Verified 10/27/23 08:26 all over body
[2023-10-29 09:46] VITALS: TEMP 97
[2023-10-29] MEDS: IV FLUID CONTINUATION 1,000 ML IV ONE (10:00)
[2023-10-29] MEDS: LACTATED RINGERS 1,000 ML IV SCH (10:00)
[2023-10-29] MEDS ORDERED: PROPOFOL 10 MG/ML 20 ML VIAL IV ONE (10:21)
[2023-10-29 10:26] LABS: ALT 32 U/L (4-34); AST 39 U/L (14-36); African American GFR (CKD) >90 (>60 ml/min/1.73 sqM); Albumin 4.3 g/dL (3.5-5.0); Alkaline Phosphatase 80 U/L (38-126); Anion Gap 6 mmol/L; Blood Urea Nitrogen 16 mg/dL (7-17); Calcium 10.1 mg/dL (8.4-10.2); Carbon Dioxide 27 mmol/L (22-30); Chloride 104 mmol/L (98-107); Glucose 136 mg/dL (74-99); Non-African American GFR(CKD) >90 (>60 ml/min/1.73 sqM); Potassium 5.1 mmol/L (3.5-5.1); Sodium 137 mmol/L (137-145); Total Bilirubin 0.8 mg/dL (0.2-1.3); Total Protein 7.2 g/dL (6.3-8.2)
[2023-10-29 10:28] LABS: Basophils # (A) 0.1 k/uL (0-0.2); Basophils % (A) 1 %; Eosinophils # (A) 0.1 k/uL (0-0.7); Eosinophils % (A) 2 %; HCT 45.9 % (34.0-46.0); HGB 14.1 gm/dL (11.4-16.0); Lymphocytes # (A) 1.1 k/uL (1.0-4.8); Lymphocytes % (A) 13 %; MCH 29.1 pg (25.0-35.0); MCHC 30.8 g/dL (31.0-37.0); MCV 94.5 fL (80.0-100.0); Mean Platelet Volume 8.2; Monocytes # (A) 0.5 k/uL (0-1.0); Monocytes % (A) 6 %; Neutrophils # (A) 6.6 k/uL (1.3-7.7); Neutrophils % (A) 77 %; Platelet Count 209 k/uL (150-450); RBC 4.85 m/uL (3.80-5.40); WBC 8.6 k/uL (3.8-10.6)
--- NOTE | 2023-10-29 10:51 | P.PCN ---
Date of Procedure: 10/29/23 Description of Procedure: PREOPERATIVE DIAGNOSIS: Colonoscopy screening. POSTOPERATIVE DIAGNOSIS: Colonoscopy screening. OPERATION: Colonoscopy to the cecum, ileocecal valve and appendiceal orifice. SURGEON: Devora Chiu MD. ANESTHESIA: MAC. INDICATIONS: The patient is a 73-year-old female who presents for colonoscopy screening. Benefits and risks were described and informed consent was obtained. DESCRIPTION OF PROCEDURE: The patient had undergone Sutab prep. The patient had been brought into the operating room and laid in the left lateral decubitus position. After adequate intravenous sedation, the rectum was examined with 2% lidocaine jelly. External hemorrhoids were encountered. The rectal tone was within normal limits. No lesions were palpated in the rectal vault. An Olympus colonoscope was advanced until the cecum, ileocecal valve and appendiceal orifice were clearly viewed. The prep was excellent. No scattered diverticulosis was encountered. No colonic polyps were found. No evidence of focal colitis was found. Retroflexion of the scope demonstrated grade 3 internal hemorrhoids without active bleeding or inflammation. The colon was desufflated. The patient had tolerated the procedure well. Withdrawal time was over 6 minutes. FINDINGS: Aronchick preparation quality scale 1+ (1-5) Internal hemorrhoids, grade 3 External prolapsed hemorrhoids, grade 3 No arteriovenous malformations. No adenomatous polyps. No focal colitis. RECOMMENDATIONS: Lower endoscopy in 5 years, 2028 Plan - Discharge Summary Discharge Rx Participant: No New Discharge Prescriptions: Continue cloNIDine HCL [Catapres] 0.1 mg PO BID lisinopriL [Zestril] 20 mg PO QAM Aspirin [Children's Aspirin] 81 mg PO DAILY FLUoxetine HCL [PROzac] 20 mg PO QAM Vit A/Vit C/Vit E/Zinc/Copper [ICAPS SOFTGEL] 1 cap PO DAILY Zinc Gluconate [Zinc] 50 mg PO DAILY Pravastatin Sodium [Pravachol] 20 mg PO HS Calcium Carbonate [Tums Ultra Strength] 470 mg PO BID metroNIDAZOLE [Flagyl] 500 mg PO TID #42 tab Melatonin 3 mg PO HS Timolol 0.5% Ophth Soln [Timoptic 0.5% Ophth Soln] 1 drop RIGHT EYE BID Turmeric Root Extract [Turmeric] 500 mg PO DAILY Calcium Carbonate/Vitamin D3 [Calcium 600 mg-Vit D3 10 mcg (400 Unit)] 1 tab PO BID Ibuprofen [Motrin] 600 mg PO Q8HR PRN #30 tab PRN Reason: Pain Cefuroxime [Ceftin] 500 mg PO Q12HR Discharge Medication List Aspirin [Children's Aspirin] 81 mg PO DAILY 11/05/17 [History] cloNIDine HCL [Catapres] 0.1 mg PO BID 11/05/17 [History] lisinopriL [Zestril] 20 mg PO QAM 11/05/17 [History] FLUoxetine HCL [PROzac] 20 mg PO QAM 01/26/19 [History] Melatonin 3 mg PO HS 05/10/23 [History] Pravastatin Sodium [Pravachol] 20 mg PO HS 05/10/23 [History] Timolol 0.5% Ophth Soln [Timoptic 0.5% Ophth Soln] 1 drop RIGHT EYE BID 05/10/23 [History] Vit A/Vit C/Vit E/Zinc/Copper [ICAPS SOFTGEL] 1 cap PO DAILY 05/10/23 [History] Zinc Gluconate [Zinc] 50 mg PO DAILY 05/10/23 [History] Calcium Carbonate [Tums Ultra Strength] 470 mg PO BID 09/27/23 [History] Calcium Carbonate/Vitamin D3 [Calcium 600 mg-Vit D3 10 mcg (400 Unit)] 1 tab PO BID 09/27/23 [History] Turmeric Root Extract [Turmeric] 500 mg PO DAILY 09/27/23 [History] Ibuprofen [Motrin] 600 mg PO Q8HR PRN #30 tab 10/06/23 [Rx] metroNIDAZOLE [Flagyl] 500 mg PO TID #42 tab 10/06/23 [Rx] Cefuroxime [Ceftin] 500 mg PO Q12HR 10/29/23 [History] Follow up Appointment(s)/Referral(s): Devora Chiu MD [STAFF PHYSICIAN] - 10/30/23 (Present at [facility] PRE-OP [facility] TOMORROW FOR SURGERY!) Patient Instructions/Handouts: Colonoscopy (GEN) Activity/Diet/Wound Care/Special Instructions: Repeat colonoscopy in 5 years, 2028 Discharge Disposition: HOME SELF-CARE
[2023-10-29 11:12] VITALS: BP 112/78; PULSE 87; RESP 18
== END 2023-10-29 11:39 | disposition home or self-care (01) ==
LOC: ORWHC2ENDO 09:16
PROVIDERS: ATTEND Surgery Plastic and Reconstructive Surgery
DX: K64.2 Third degree hemorrhoids (principal); K21.9 Gastro-esophageal reflux disease without esophagitis; I10 Essential (primary) hypertension; J44.9 Chronic obstructive pulmonary disease, unspecified; E78.5 Hyperlipidemia, unspecified; E11.9 Type 2 diabetes mellitus without complications; F31.30 Bipolar disorder, current episode depressed, mild or moderate severity, unspecified; H40.9 Unspecified glaucoma; Z79.84 Long term (current) use of oral hypoglycemic drugs; Z79.51 Long term (current) use of inhaled steroids; Z79.899 Other long term (current) drug therapy; Z88.2 Allergy status to sulfonamides; Z88.1 Allergy status to other antibiotic agents; Z79.2 Long term (current) use of antibiotics; Z82.49 Family history of ischemic heart disease and other diseases of the circulatory system; Z80.3 Family history of malignant neoplasm of breast; Z79.82 Long term (current) use of aspirin; Z87.891 Personal history of nicotine dependence; Z86.59 Personal history of other mental and behavioral disorders; Z90.49 Acquired absence of other specified parts of digestive tract; Z90.710 Acquired absence of both cervix and uterus
CPT/HCPCS: 80053; 85025; J2704; G0121; 45378

== ENCOUNTER → 2023-10-30 | Day surgery (SDC) | payer MEDICARE ==
[~2023-10-30] MED LIST: GLYCOPYRROLATE 0.2 MG/ML 2 ML VIAL ONE; LIDOCAINE 1% INJ 10MG/ML (20 ML MDV) ONE; MIDAZOLAM 2 MG/2 ML VIAL ONE; NEOSTIGMINE 1 MG/ML 10 ML VIAL ONE; ONDANSETRON 4 MG/2 ML VIAL IVP PRN; PHENYLEPHRINE-0.9% NACL SYG 1,000 MCG/10 ML SYRINGE ONE; PROPOFOL 10 MG/ML 20 ML VIAL IV ONE; ROCURONIUM 10 MG/ML (5 ML VIAL) IV ONE; SUCCINYLCHOLINE CHLORIDE 200 MG/10 ML VIAL IV ONE; fentaNYL (PF) 50 MCG/ML 2 ML AMP ONE; metroNIDAZOLE-NS PMX 500 MG in SALINE 1 100ML.BAG IVPB PRN
--- NOTE | 2023-10-30 08:25 | P.GSHP ---
History of Present Illness H&P Date: 10/30/23 CHIEF COMPLAINT: Recurrent appendicitis with perforation HISTORY OF PRESENT ILLNESS: The patient is a 73-year-old female with prior appendectomy 6 months ago in April 2023. She persisted to have right lower quadrant abdominal pain and had recurrent appendicitis 1 month ago with peritonitis. She was treated with oral and IV antibiotics. Repeat CT scan demonstrated resolution of phlegmon. Colonoscopy performed demonstrated no appendiceal orifice neoplasms or cancers for recurrent appendicitis. She presents for appendectomy. PAST MEDICAL HISTORY: See list and reviewed PAST SURGICAL HISTORY: See list and reviewed CURRENT MEDICATIONS: See list and reviewed ALLERGIES: See list and reviewed SOCIAL HISTORY: See list and reviewed FAMILY HISTORY: See list and reviewed REVIEW OF ORGAN SYSTEMS: CONSTITUTIONAL: Has morbid obesity, BMI 38.1 HEENT: Denies any trouble with vision, hearing or nosebleeds. No difficulty swallowing. LYMPHATIC: The patient denies any lumps and bumps around the neck. ENDOCRINE: Denies any thyroid disorders. Denies any blood sugar glucose i ntolerance. RESPIRATORY: Denies shortness of breath including chronic cough. CARDIOVASCULAR: Denies history of chest pain with exertion. GASTROINTESTINAL: Recent colonoscopy demonstrated no polyps. GENITOURINARY: Denies any blood in urine or increased urinary frequency. MUSCULOSKELETAL: Denies current joint arthritis. NEUROLOGIC: Denies any numbness or tingling along the distal extremities. No seizure disorders or headaches. PSYCHIATRIC: Denies any depression or suicidal ideation. HEMATOLOGIC: Denies any abnormal bleeding or bruising. PHYSICAL EXAMINATION: VITALS: Reviewed. GENERAL: Well-developed and in no acute distress. Pleasant. HEENT: No sclera icterus. Extraocular movements grossly intact. Moist buccal mucosa. Head is atraumatic, normocephalic. Hears conversational speech. No nasal drainage. NECK: Supple without lymphadenopathy. No JV distention. CHEST: Non-labored respirations and equal bilateral excursions. CARDIOVASCULAR: Regular rate and rhythm. Palpable 2+ radial pulses. ABDOMEN: Obese. No peritonitis. MUSCULOSKELETAL: No clubbing, cyanosis or edema. NEUROLOGIC: No focal or lateralizing signs. PSYCH: Appropriate affect. Alert and oriented to person, place and time. SKIN: Well perfused. Good skin turgor. LABS: Reviewed. White blood cell count normal. STUDIES: CT of the abdomen and pelvis reviewed from October 2023 demonstrates appendicitis. No residual peritonitis or fluid collection. This is my independent interpretation. ASSESSMENT: 1. Recurrent appendicitis PLAN: 1. I have discussed benefits and risks of robotic appendectomy. 2. Bilateral SCDs. 3. Heparin subcutaneous for DVT prophylaxis 4. Patient is elevated risk due to comorbidities and recurrent appendicitis Past Medical History Past Medical History: COPD, Diabetes Mellitus, GERD/Reflux, Hyperlipidemia, Hypertension Additional Past Medical History / Comment(s): Borderline type 2 , RT EYE GLAUCOMA. 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 History of Any Multi-Drug Resistant Organisms: None Reported Past Surgical History: Appendectomy, Breast Surgery, Hysterectomy Additional Past Surgical History / Comment(s): 09/28/23 ABD WASH FOR PERFORATED APPENDECTOMY. PICC. 05/10/23 APPENDECTOMY. Right breast biopsy. Vaginal hysterectomy 1980. colonoscopy 2016. Past Anesthesia/Blood Transfusion Reactions: No Reported Reaction Past Psychological History: Bipolar, Depression Smoking Status: Former smoker Past Alcohol Use History: None Reported Additional Past Alcohol Use History / Comment(s): Quit smoking in 1996. Past Drug Use History: None Reported - Past Family History Father Family Medical History: Coronary Artery Disease (CAD), Diabetes Mellitus Mother Family Medical History: Myocardial Infarction ([place]) Additional Family Medical History / Comment(s): 2 aunts had breast cancer. Sister(s) Family Medical History: Coronary Artery Disease (CAD) Brother(s) Family Medical History: Coronary Artery Disease (CAD) Medications and Allergies Home Medications Medication Instructions Recorded Confirmed Type Aspirin [Children's Aspirin] 81 mg PO DAILY 11/05/17 10/29/23 History cloNIDine HCL [Catapres] 0.1 mg PO BID 11/05/17 10/29/23 History lisinopriL [Zestril] 20 mg PO QAM 11/05/17 10/29/23 History FLUoxetine HCL [PROzac] 20 mg PO QAM 01/26/19 10/29/23 History Melatonin 3 mg PO HS 05/10/23 10/29/23 History Pravastatin Sodium [Pravachol] 20 mg PO HS 05/10/23 10/29/23 History Timolol 0.5% Ophth Soln [Timoptic 1 drop RIGHT EYE BID 05/10/23 10/29/23 History 0.5% Ophth Soln] Vit A/Vit C/Vit E/Zinc/Copper 1 cap PO DAILY 05/10/23 10/29/23 History [ICAPS SOFTGEL] Zinc Gluconate [Zinc] 50 mg PO DAILY 05/10/23 10/29/23 History Calcium Carbonate [Tums Ultra 470 mg PO BID 09/27/23 10/29/23 History Strength] Calcium Carbonate/Vitamin D3 1 tab PO BID 09/27/23 10/29/23 History [Calcium 600 mg-Vit D3 10 mcg (400 Unit)] Turmeric Root Extract [Turmeric] 500 mg PO DAILY 09/27/23 10/29/23 History Ibuprofen [Motrin] 600 mg PO Q8HR PRN #30 tab 10/06/23 10/29/23 Rx metroNIDAZOLE [Flagyl] 500 mg PO TID #42 tab 10/06/23 10/29/23 Rx Cefuroxime [Ceftin] 500 mg PO Q12HR 10/29/23 10/29/23 History Allergies Allergy/AdvReac Type Severity Reaction Status Date / Time sulfamethoxazole Allergy Severe Rash/Hives Verified 10/29/23 09:38 [From Bactrim] all over body trimethoprim [From Bactrim] Allergy Severe Rash/Hives Verified 10/29/23 09:38 all over body
[2023-10-30 12:58] VITALS: TEMP 97.1
[2023-10-30] MEDS: MELOXICAM 7.5 MG TAB PO PRN (13:04)
[2023-10-30] MEDS: ACETAMINOPHEN TAB 500 MG TAB PO PRN (13:04)
[2023-10-30] MEDS: LACTATED RINGERS 1,000 ML IV SCH (13:05)
[2023-10-30] MEDS: IV FLUID CONTINUATION 1,000 ML IV ONE (13:05)
[2023-10-30 13:06] LABS: Glucose,Whole Blood 111 mg/dL (70-110)
[2023-10-30] MEDS: LIDOCAINE 1% (10MG/ML) FOR IV START INTRADERMA PRN (13:06)
[2023-10-30] MEDS: HEPARIN SODIUM,PORCINE 5,000 UNIT/ML 1 ML VIAL SQ PRN (13:06)
[2023-10-30] MEDS: DEXAMETHASONE SOD PHOSPHATE 4 MG/ML 1 ML VIAL IV ONE (13:07)
[2023-10-30] MEDS: ONDANSETRON 4 MG/2 ML VIAL IVP ONE (13:07)
[2023-10-30] MEDS: LIDOCAINE 1%-EPI 1:100,000 20 ML VIAL SQ ONE (13:30)
[2023-10-30 13:31] LABS: African American GFR (CKD) >90 (>60 ml/min/1.73 sqM); Anion Gap 5 mmol/L; Blood Urea Nitrogen 19 mg/dL (7-17); Calcium 9.8 mg/dL (8.4-10.2); Carbon Dioxide 26 mmol/L (22-30); Chloride 108 mmol/L (98-107); Glucose 108 mg/dL (74-99); Non-African American GFR(CKD) >90 (>60 ml/min/1.73 sqM); Sodium 139 mmol/L (137-145)
[2023-10-30] MEDS: LACTATED RINGERS 1,000 ML IV ONE (14:46)
[2023-10-30] MEDS: HYDROmorphone 0.5 MG/0.5 ML SYRINGE IVP PRN (15:44)
[2023-10-30 16:46] VITALS: BP 150/77; PULSE 74; RESP 18
--- NOTE | 2023-10-30 16:46 | P.OP ---
Date of Procedure: 10/30/23 Description of Procedure: SURGEON: DEVORA CHIU MD Preoperative Diagnosis: 1. Recurrent ruptured appendicitis with peritonitis 2. Hypertensive heart disease 3. Chronic obstructive pulmonary disease 4. Gastroesophageal reflux disease 5. Diabetes type 2, not insulin-dependent 6. Glaucoma 7. Bipolar disorder 8. Depressive disorder 9. Hyperlipidemia Postoperative Diagnosis: 1. Recurrent ruptured appendicitis with peritonitis 2. Hypertensive heart disease 3. Chronic obstructive pulmonary disease 4. Gastroesophageal reflux disease 5. Diabetes type 2, not insulin-dependent 6. Glaucoma 7. Bipolar disorder 8. Depressive disorder 9. Hyperlipidemia Procedure(s) Performed: 1. Robotic-assisted daVinci Xi laparoscopic lysis of adhesions 2. Robotic-assisted daVinci Xi laparoscopic appendectomy Anesthesia: GETA, local Estimated Blood Loss (ml): 5 Pathology: other (appendix) Condition: stable Disposition: floor Operative Findings: 1. Inflammatory adhesions of the right lower quadrant with resolved peritonitis 2. Base of the appendix and body of the appendix intact embedded in surrounding tissue at the right lateral abdominal wall 3. Adhesions about gallbladder questionable for chronic cholecystitis 4. Anterior abdominal wall diaphragmatic hiatal hernia with incarcerated omentum reduced INDICATIONS: The patient is a 73-year-old female who presents for her third exploration for appendicitis. She had prior appendectomy April 2023 however had residual appendix with recurrent appendicitis in September 2023. She presented with peritonitis. She had a diagnostic laparoscopy done by different provider with placement of a drain. Extended IV antibiotics including oral antibiotics were given. Interval appendectomy was described following colonoscopy excluding appendiceal neoplasm. Surgical intervention was described in detail. Patient requested robotic-assisted technique. Benefits and risks, including infection, open surgery, and possibility for additional surgery was discussed at length. Informed consent was obtained. All questions of the patient and family were answered. DESCRIPTION: The patient was transferred to the operating room and placed in supine position. The patient had previously voided. The abdomen was then prepped and draped in standard sterile fashion as Ioban was placed along the abdomen to minimize any contamination of skin floor. After a timeout protocol was performed, attention was then brought to the left upper quadrant whereby a 0 degree 5 mm laparoscopic trocar entry was performed. The abdominal cavity was entered and insufflated to 15 mmHg pressure, which was tolerated well. Diagnostic laparoscopy demonstrated no injury to bowel, viscera or mesentery. Adhesions were confirmed of the right lower quadrant of omentum, small bowel to the abdominal wall. Localized abscess was found. Next a robotic 12-mm trocar was placed along the left upper quadrant after exchanging the 5 mm trocar. A 8 mm port was placed along the left lower quadrant and another 8-mm port left lateral abdominal wall. Ports were placed 10 cm apart from each other including 15-20 cm away from the target anatomy of the right pelvis. The patient was then placed in Trendelenburg position, at least 14 and right side up at least 7. The robotic da Adan XI system was primed and docked from the left side of the patient. Using atraumatic graspers and vessel sealer, the robotic system was docked and primed as described. Instruments were interchanged by the medical technician assistant including graspers, robotic stapler and vessel sealer. Next, attention was brought to identify the cecum. The base of the cecum was redundant with inflammatory tissue identified along the right lateral abdominal wall. The tenia coli was followed where the base of the appendix was identified including body of the appendix embedded within the surrounding retroperitoneal tissue. The appendix was divided at the base using robotic 45 mm white staple load. The staple line was hemostatic. The rest of the appendix was dissected free from the surrounding tissue using vessel sealer. Lysis of adhesions performed around the right pelvis. View of the gallbladder demonstrated inflammatory tissue questionable for chronic cholecystitis. At the left anterior abdominal wall involving the hiatus, hiatal hernia was identified. Incarcerated omentum was reduced. The specimen was removed from the abdominal cavity with an Endo Catch bag through the 12 mm trocar at the left upper quadrant. All instruments and pneumoperitoneum were evacuated from the abdominal cavity. Local anesthetic was infiltrated to all wounds for postop analgesia. All incisions were also cleansed with diluted hydrogen peroxide. The incisions were closed using interrupted 4-0 Monocryl. The patient had tolerated the procedure well. The patient was extubated successfully. The patient was transferred to the postanesthesia care unit in stable condition. Plan - Discharge Summary New Discharge Prescriptions: New Acetaminophen Tab [Tylenol Tab] 1,000 mg PO Q6HR PRN #30 tablet PRN Reason: Pain Ibuprofen [Motrin] 600 mg PO Q8HR PRN #30 tab PRN Reason: Pain Simethicone [Gas-X] 125 mg PO AC-TID PRN #20 capsule PRN Reason: Pain Continue cloNIDine HCL [Catapres] 0.1 mg PO BID lisinopriL [Zestril] 20 mg PO QAM Aspirin [Children's Aspirin] 81 mg PO DAILY FLUoxetine HCL [PROzac] 20 mg PO QAM Vit A/Vit C/Vit E/Zinc/Copper [ICAPS SOFTGEL] 1 cap PO DAILY Zinc Gluconate [Zinc] 50 mg PO DAILY Pravastatin Sodium [Pravachol] 20 mg PO HS Calcium Carbonate [Tums Ultra Strength] 470 mg PO BID metroNIDAZOLE [Flagyl] 500 mg PO TID #42 tab Melatonin 3 mg PO HS Timolol 0.5% Ophth Soln [Timoptic 0.5% Ophth Soln] 1 drop RIGHT EYE BID Turmeric Root Extract [Turmeric] 500 mg PO DAILY Calcium Carbonate/Vitamin D3 [Calcium 600 mg-Vit D3 10 mcg (400 Unit)] 1 tab PO BID Cefuroxime [Ceftin] 500 mg PO Q12HR Discontinued Ibuprofen [Motrin] 600 mg PO Q8HR PRN #30 tab PRN Reason: Pain Discharge Medication List Aspirin [Children's Aspirin] 81 mg PO DAILY 11/05/17 [History] cloNIDine HCL [Catapres] 0.1 mg PO BID 11/05/17 [History] lisinopriL [Zestril] 20 mg PO QAM 11/05/17 [History] FLUoxetine HCL [PROzac] 20 mg PO QAM 01/26/19 [History] Melatonin 3 mg PO HS 05/10/23 [History] Pravastatin Sodium [Pravachol] 20 mg PO HS 05/10/23 [History] Timolol 0.5% Ophth Soln [Timoptic 0.5% Ophth Soln] 1 drop RIGHT EYE BID 05/10/23 [History] Vit A/Vit C/Vit E/Zinc/Copper [ICAPS SOFTGEL] 1 cap PO DAILY 05/10/23 [History] Zinc Gluconate [Zinc] 50 mg PO DAILY 05/10/23 [History] Calcium Carbonate [Tums Ultra Strength] 470 mg PO BID 09/27/23 [History] Calcium Carbonate/Vitamin D3 [Calcium 600 mg-Vit D3 10 mcg (400 Unit)] 1 tab PO BID 09/27/23 [History] Turmeric Root Extract [Turmeric] 500 mg PO DAILY 09/27/23 [History] metroNIDAZOLE [Flagyl] 500 mg PO TID #42 tab 10/06/23 [Rx] Cefuroxime [Ceftin] 500 mg PO Q12HR 10/29/23 [History] Acetaminophen Tab [Tylenol Tab] 1,000 mg PO Q6HR PRN #30 tablet 10/30/23 [Rx] Ibuprofen [Motrin] 600 mg PO Q8HR PRN #30 tab 10/30/23 [Rx] Simethicone [Gas-X] 125 mg PO AC-TID PRN #20 capsule 10/30/23 [Rx] Follow up Appointment(s)/Referral(s): Devora Chiu MD [STAFF PHYSICIAN] - 11/04/23 6:20 pm Patient Instructions/Handouts: Laparoscopic Appendectomy (GEN) Activity/Diet/Wound Care/Special Instructions: TELEHEALTH - DR WILL CALL YOU BETWEEN 9 am to 8 pm NO LONG DRIVES OR AIRPLANE RIDES OVER 30 MINUTES FOR THE NEXT 2 WEEKS DUE TO HIGH RISK OF PULMONARY EMBOLISM/DVTs Recommend low-fat diet for the next 2 days. No lifting over 10 pounds in 2 weeks until Nov 12August shower. No bath tub soaks for two weeks until Nov 12 Diet as tolerated. Use Tylenol, simethicone and ibuprofen or Aleve scheduled for the next 24-48 hours for best pain relief. Use ice along incisions for today to prevent swelling.
== END | disposition home or self-care (01) ==
LOC: OR 12:31
PROVIDERS: ATTEND Surgery Plastic and Reconstructive Surgery
DX: J44.9 Chronic obstructive pulmonary disease, unspecified (principal); I11.9 Hypertensive heart disease without heart failure; K21.9 Gastro-esophageal reflux disease without esophagitis; K44.0 Diaphragmatic hernia with obstruction, without gangrene; E11.9 Type 2 diabetes mellitus without complications; F32.9 Major depressive disorder, single episode, unspecified; F32.A Depression, unspecified; F31.9 Bipolar disorder, unspecified; E78.5 Hyperlipidemia, unspecified; H40.1113 Primary open-angle glaucoma, right eye, severe stage; E66.01 Morbid (severe) obesity due to excess calories; Z68.38 Body mass index [BMI] 38.0-38.9, adult; Z79.82 Long term (current) use of aspirin; Z79.52 Long term (current) use of systemic steroids; Z79.83 Long term (current) use of bisphosphonates; Z79.2 Long term (current) use of antibiotics; Z79.899 Other long term (current) drug therapy; Z90.710 Acquired absence of both cervix and uterus; Z87.891 Personal history of nicotine dependence; Z86.59 Personal history of other mental and behavioral disorders; Z80.3 Family history of malignant neoplasm of breast; Z88.2 Allergy status to sulfonamides; Z88.1 Allergy status to other antibiotic agents
CPT/HCPCS: 80048; 44970; J2250; J0330; J1644; J1100; J2710; J0690; J2405; J2001; J3010; J2704; J1170; J2371; J1596

== ENCOUNTER → 2024-07-16 | Outpatient (CLI) | payer MEDICARE ==
--- NOTE | 2024-07-19 07:44 | MM ---
Reason for Exam: Screening (asymptomatic). Last mammogram was performed 1 year(s) and 1 month(s) ago. Patient History: Menarche at age 11. First Full-Term at age 16. Hysterectomy at age 30. Postmenopausal. Estrogen for 14 years from age 49 until age 63. Hormonal Contraceptives, starting at age 19 for 10 years. Benign Excisional Biopsy on the right side. Paternal aunt had breast cancer. Paternal aunt had breast cancer. Risk Values: Lala 5 year model risk: 1.5%. NCI Lifetime model risk: 3.3%. Prior Study Comparison: 04/30/2022 Bilateral MG 3D screening mammo w/cad, [facility]. 05/06/2022 Left MG 3D work up w/cad , [facility]. 06/23/2023 Bilateral MG 3D screening mammo w/cad, [facility]. Tissue Density: There are scattered areas of fibroglandular density. Findings: Analyzed By CAD. Unchanged bilateral subareolar areas of asymmetric density. Unchanged bilateral round calcifications. There is no suspicious group of microcalcifications or new suspicious mass in either breast. Overall Assessment: Benign, BI-RAD 2 Management: Screening Mammogram of both breasts in 1 year. Patient should continue monthly self-breast exams. A clinical breast exam by your physician is recommended on an annual basis. This exam should not preclude additional follow-up of suspicious palpable abnormalities. Note on Lala scores and lifetime risk: 1. A Lala score greater than 3% is considered moderate risk. If this is the case, consider specialist referral to assess eligibility for a risk reducing agent. 2. If overall lifetime risk for the development of breast cancer is 20% or higher, the patient may qualify for future screening with alternating mammogram and breast MRI. [facility], , 07/19/2024 7:41 AM. Electronically signed and approved by: Golden Contreras M.D. Radiologist
== END | disposition home or self-care (01) ==
LOC: RADMAMWWP 16:05
PROVIDERS: ATTEND Internal Medicine
DX: Z12.31 Encounter for screening mammogram for malignant neoplasm of breast (principal); R92.323 Mammographic fibroglandular density, bilateral breasts; Z80.3 Family history of malignant neoplasm of breast; Z78.0 Asymptomatic menopausal state; Z92.0 Personal history of contraception
CPT/HCPCS: 77063; 77067